=== PATIENT | female | born 1945 | race African-American/Black ===

== ENCOUNTER 2017-04-15 14:15 | Emergency (ER) | payer MEDICARE, OTHER ==
[~2017-04-15] VITALS: Ht 162.6 cm; Wt 88.5 kg
[2017-04-15 14:35] VITALS: BP 158/72
--- NOTE | 2017-04-15 14:38 | Emergency Room Report ---
History of Present Illness General Chief Complaint: Back Pain-No Injury Source: Patient Present Illness HPI [id number] [employer] patient walk-in with 2 days of right lower back pain 12/09. Non radiating Sharp, worse with movement pain when lifting right leg to walk, lying on right buttock No trauma/falls No history of sciatica No prior hip, back surgery No fever/chills No urinary/fecal incontinence No history of cancer Took tylenol once this morning with mild improvement Allergies: Coded Allergies: No Known Allergies (Unverified , 04/15/17) Patient History Past Medical History: HTN Past Surgical History: none Pertinent Family History: none Social History: Denies: smoking, alcohol use, drug use Last Menstrual Period: na Now: No Immunizations: UTD Reviewed Nursing Documentation: PMH: Agreed, PSxH: Agreed Nursing Documentation-PMH Past Medical History: No History, Except For Hx Hypertension: Yes Review of Systems All Other Systems: negative except mentioned in HPI Physical Exam Vital Signs Date Time Temp Pulse Resp B/P (MAP) Pulse Ox O2 Delivery O2 Flow Rate FiO2 04/15/17 14:18 97.3 58 18 153/78 98 Room Air Sp02 EP Interpretation: reviewed, normal General Appearance: normal inspection, well appearing, no apparent distress, alert, GCS 15, non-toxic, other - Well appearing elderly lady sitting in stretcher Head: normocephalic, atraumatic Eyes: bilateral eye PERRL, bilateral eye EOMI ENT: normal ENT inspection, hearing grossly normal, normal voice Neck: normal inspection, full range of motion, supple, no bony tend Respiratory: normal inspection, lungs clear, normal breath sounds, no respiratory distress, no retraction, no wheezing Cardiovascular #1: regular rate, rhythm, no edema Gastrointestinal: normal inspection, normal bowel sounds, non tender, soft, no guarding, no hernia Genitourinary: no CVA tenderness Musculoskeletal: normal inspection, normal range of motion, non-tender, no calf tenderness, pelvis stable, Andrea's Sign negative, other - ++TTP to right paravertebral area. Negative straight leg raise test Neurologic: normal inspection, alert, oriented x3, responsive, normal gait, speech normal, other - I walked patient bedside. No unsteady gait. Pain when elevating/placing foot to walk. Psychiatric: normal inspection, judgement/insight normal, mood/affect normal Skin: normal inspection, normal color, no rash Medical Decision Making Diagnostic Impression: Primary Impression: Back pain Qualified Codes: M54.5 - Low back pain Additional Impression: Muscle strain ER Course VSS. Afebrile +right paravertebral ttp. No sciatica Atraumatic so no reason for imaging No history of cancer, incontinence, IVDU, fever/chills so low suspicion for cord compression PO analgesia provided DC home PMD followup Last Vital Signs Date Time Temp Pulse Resp B/P (MAP) Pulse Ox O2 Delivery O2 Flow Rate FiO2 04/15/17 14:18 97.3 58 18 153/78 98 Room Air Status: improved Disposition: HOME, SELF-CARE Scripts Acetaminophen (Tylenol) 325 Mg Tablet 650 MG ORAL Q8HR Y for Prn Pain/Headache/Temp > 101 for 7 Days, #30 TAB 0 Refills Prov: VENUS PARRISH M.D. 04/15/17 Lidocaine (Lidoderm) 1 Each Adh..patch 1 PATCH TOPIC DAILY for back pain for 7 Days, #14 PATCH 0 Refills Patch(es) may remain in place for up to 12 hours in any 24-hour period. Prov: VENUS PARRISH M.D. 04/15/17 Methocarbamol* (ROBAXIN-750*) 750 Mg Tablet 750 MG PO TID for back pain for 7 Days, #30 TAB 0 Refills Prov: VENUS PARRISH M.D. 04/15/17 VENUS PARRISH M.D. Apr 15, 2017 14:38
[2017-04-15] MEDS ORDERED: LIDODERM700 M1 TOPIC (14:45)
[2017-04-15] MEDS ORDERED: ROBAXIN-750750 MG PO (14:45)
[2017-04-15] MEDS ORDERED: oxyCODONE HCL/Acetaminophen 5/325mg ORAL ONE (14:45)
[2017-04-15] MEDS ORDERED: Methocarbamol 750mg tab ORAL ONE (14:45)
[2017-04-15] MEDS ORDERED: TYLENOL325 MG ORAL (14:47)
[2017-04-15 15:42] VITALS: BP 144/78
== END 2017-04-15 15:42 | disposition home or self-care (01) ==
LOC: EMR 14:39
DX: S39.012A Strain of muscle, fascia and tendon of lower back, initial encounter (principal); X58.XXXA Exposure to other specified factors, initial encounter; Y92.89 Other specified places as the place of occurrence of the external cause
CPT/HCPCS: 99284

== ENCOUNTER 2017-04-19 08:32 | Outpatient (CLI) | payer MEDICARE, OTHER ==
[~2017-04-19 08:32] MED LIST: LIDODERM700 M1 TOPIC; ROBAXIN-750750 MG PO; TYLENOL325 MG ORAL
--- NOTE | 2017-04-19 14:43 | Diagnostic Imaging Report ---
Indication: Back pain Technique: MRI examination of the Lumbar spine was performed in a 1.5 Mallika magnet. Sequences obtained include sagittal and axial T1 and T2 fast spin echo, and sagittal STIR. No IV gadolinium was given Comparison: none Findings: There is no evidence of trauma related bone marrow edema or fracture. The visualized part of the distal spinal cord appears normal. The conus medullaris is seen at L1. There is no compression of the cord, conus or cauda equina. There is no evidence of significant malalignment. No epidural or other abnormal fluid collections or mass identified. No paravertebral edema identified. Degenerative changes are moderate to severe within the lumbar spine involving the discs and facet joints and will be described on a level by level basis. T12-L1 disc shows moderate desiccation and narrowing with anterior lesion situated endplate spurs and hypertrophy facets. L1-2 demonstrates severe disc narrowing and desiccation, moderate hypertrophic endplate spurs, minimal retrolisthesis and hypertrophy facets. No evidence of neural impingement, canal or foraminal stenosis. L2-3: Moderate desiccation and narrowing of the disc, endplate spurs, moderate hypertrophy facets demonstrated. Narrowing of the lateral recess slightly worse on the right compared the left demonstrated. Neural foraminal stenosis is mild bilaterally. L3-4: The height of the disc is relatively normal. There are endplate spurs. There is moderate facet arthropathy. Central or lateral recess stenosis is present. There is mild foraminal stenosis. L4-5: The height of the disc is relatively normal. There is moderate to severe facet hypertrophy present. There is evidence of mild central stenosis and narrowing of the lateral recess. There is moderate bilateral foraminal stenosis. L5-S1: The disc appears relatively normal. There is no central lateral recess or neural foraminal stenosis. There is a cyst in the central part of the right kidney measuring approximately 1.3 cm. Impression: Degenerative spondylosis with multilevel disc disease and facet arthropathy. Central, lateral recess and neural foraminal stenosis demonstrated at multiple levels. This is described in detail on a level by level basis in the body of the report.
== END 2017-04-19 10:32 | disposition home or self-care (01) ==
LOC: MRI 08:32
DX: M54.9 Dorsalgia, unspecified (principal); N28.1 Cyst of kidney, acquired; M51.36 Other intervertebral disc degeneration, lumbar region; M47.896 Other spondylosis, lumbar region
CPT/HCPCS: 72148

== ENCOUNTER 2018-03-06 10:30 | Outpatient (RCR) | payer MEDICARE, OTHER | END 2018-03-31 | disposition home or self-care (01) | LOC: PTY 10:30 | DX: R53.1 Weakness (principal); R26.9 Unspecified abnormalities of gait and mobility; Z86.73 Personal history of transient ischemic attack (TIA), and cerebral infarction without residual deficits | CPT/HCPCS: 97110; 97161; G8978; G8979 ==

== ENCOUNTER 2018-04-02 10:30 | Outpatient (RCR) | payer MEDICARE, OTHER | END 2018-05-01 | disposition home or self-care (01) | LOC: PTY 10:30 | DX: R26.9 Unspecified abnormalities of gait and mobility (principal); R53.1 Weakness; Z86.73 Personal history of transient ischemic attack (TIA), and cerebral infarction without residual deficits | CPT/HCPCS: 97110; G8978; G8979 ==

== ENCOUNTER 2018-05-14 09:48 | Outpatient (RCR) | payer MEDICARE, OTHER | END 2018-05-31 | disposition home or self-care (01) | LOC: PTY 09:48 | DX: R26.9 Unspecified abnormalities of gait and mobility (principal); R53.1 Weakness; Z86.73 Personal history of transient ischemic attack (TIA), and cerebral infarction without residual deficits | CPT/HCPCS: 97110; 97530; G8979; G8980 ==

== ENCOUNTER → 2019-06-05 | Outpatient (CLI) | payer MEDICARE, OTHER ==
--- NOTE | 2019-06-05 11:45 | Diagnostic Imaging Report ---
Indication: Right hip pain Technique: Noncontrast spiral acquisitions obtained through the right hip and pelvis. Multiplanar reconstructions were generated. Total dose length product 2131 mGycm. CTDIvol(s) 56 mGy. Radiation dose was minimized using automated exposure control Comparison: Findings: No acute fracture demonstrated. No dislocations. The hip joint spaces are preserved. No pelvic fracture demonstrated. No significant soft tissue contusion. There are degenerative changes of the lumbosacral junction. There is an intrauterine device in the uterus. There is ectasia of the bilateral common iliac arteries. The appendix is normal. There are colonic diverticula. Impression: No acute bony trauma Degenerative changes of the lumbosacral junction Intrauterine device in place Incidental findings as noted, colonic diverticulosis The CT scanner at [facility] is accredited by the [employer] and the scans are performed using protocols designed to limit radiation exposure to as low as reasonably achievable to attain images of sufficient resolution adequate for diagnostic evaluation.
== END | disposition home or self-care (01) ==
LOC: CAT 09:37
DX: M25.551 Pain in right hip (principal); Z97.5 Presence of (intrauterine) contraceptive device; K57.90 Diverticulosis of intestine, part unspecified, without perforation or abscess without bleeding

== ENCOUNTER 2019-09-07 08:48 | Emergency (ER) | payer MEDICARE, OTHER ==
[~2019-09-07] VITALS: Ht 162.6 cm; Wt 90.7 kg
[2019-09-07] MEDS ORDERED: AMLODIPINE BESY10 MG ORAL (09:00)
[2019-09-07] MEDS ORDERED: SIMVASTATIN20 MG ORAL (09:00)
[2019-09-07] MEDS ORDERED: LOSARTAN-HCTZ1 EACH ORAL (09:00)
[2019-09-07] MEDS ORDERED: PLAVIX75 MG ORAL (09:00)
--- NOTE | 2019-09-07 09:28 | Emergency Room Report ---
History of Present Illness General Chief Complaint: Upper Respiratory Illness Source: Medical Record Present Illness HPI Disclaimer: Please note that this report is being documented using [employer] technology. This can lead to erroneous entry secondary to incorrect interpretation by the dictating instrument. HPI: 74-year-old female history of hypertension, stroke, presented with cough for the past 4 days. She has had cough nonproductive for the past 4 days. Denies fevers denies nausea or vomiting. Denies shortness of breath. She denies any history of asthma or COPD. Her doctor prescribed her azithromycin which she started yesterday. Cough is causing chest pain that is left-sided worse with coughing about 8 out of 10 and nonradiating. PMH: Hypertension, stroke PSH: Reviewed Social Hx: Denies smoking or drinking or illicit drug use Allergies: Coded Allergies: No Known Allergies (Unverified , 04/15/17) Patient History Past Medical History: see triage record Reviewed Nursing Documentation: PMH: Agreed; PSxH: Agreed Nursing Documentation-PMH Past Medical History: No History, Except For Hx Hypertension: Yes Hx Cerebrovascular Accident: Yes Review of Systems All Other Systems: negative except mentioned in HPI Physical Exam Vital Signs Date Time Temp Pulse Resp B/P (MAP) Pulse Ox O2 Delivery O2 Flow Rate FiO2 09/07/19 08:53 98.1 68 18 123/71 (88) 94 Room Air Sp02 EP Interpretation: reviewed, normal General Appearance: well appearing, no apparent distress Head: normocephalic, atraumatic Eyes: bilateral eye PERRL, bilateral eye EOMI ENT: hearing grossly normal, moist mucus membranes Neck: full range of motion, supple Respiratory: no rhonchi, no respiratory distress, no retraction, other - Scant expiratory wheeze noted bilaterally Cardiovascular #1: normal peripheral pulses, regular rate, rhythm, no murmur Gastrointestinal: non tender, soft, non-distended, no guarding Neurologic: alert, oriented x3, no focal defects Skin: normal color, warm/dry Medical Decision Making ER Course Differential diagnosis included but not limited to bronchitis, pneumonia, URI to name a few. On exam she was no respiratory distress. Vital signs stable. After breathing treatment patient feeling improved, will discharge on albuterol as needed for cough or shortness of breath and advised patient to continue oral antibiotic that was already prescribed by her primary doctor. She was in no distress. She was nontoxic-appearing. Will discharge with close outpatient follow-up and return precautions. EXAM: XR Chest, 1 View CLINICAL HISTORY: COUGH TECHNIQUE: Frontal view of the chest. COMPARISON: Chest x-ray 11/21/13 FINDINGS: Lungs: Hypoventilatory lungs. Bibasilar lung atelectasis. Pleural space: Unremarkable. No pneumothorax. Heart: Cardiomegaly. Mediastinum: Unremarkable. Bones/joints: Unremarkable. Vasculature: Aorta is not calcification. IMPRESSION: Hypoventilatory lungs. Bibasilar lung atelectasis. EKG Diagnostic Results Rate: normal Rhythm: NSR Last Vital Signs Date Time Temp Pulse Resp B/P (MAP) Pulse Ox O2 Delivery O2 Flow Rate FiO2 09/07/19 08:53 98.1 68 18 123/71 (88) 94 Room Air Status: improved Disposition: HOME, SELF-CARE Condition: Stable Scripts Albuterol Sulfate* (ALBUTEROL SULFATE MDI*) 8.5 Gm Hfa.aer.ad 2 PUFF INH Q4H PRN for cough/wheezing, #1 EA 0 Refills Prov: Dylan Kebede M.D. 09/07/19 Additional Instructions: Patient is instructed to follow-up with her primary care doctor, primary care clinic or [facility] in 1 to 2 days. Patient instructed to return for any worsening symptoms or concerns. Please note that the documentation in this note was used with [employer] dictation technology. Pleae be advised that this may lead to erroneous text due to misinterpretation by the dictation software Dylan Kebede M.D. Sep 07, 2019 09:27
[2019-09-07] MEDS ORDERED: Albuterol/Ipratropium 3ml neb HHN ONE (09:30)
[2019-09-07 09:40] VITALS: BP 126/85
--- NOTE | 2019-09-07 10:39 | Diagnostic Imaging Report ---
EXAM: XR Chest, 1 View CLINICAL HISTORY: COUGH TECHNIQUE: Frontal view of the chest. COMPARISON: Chest x-ray 11/21/13 FINDINGS: Lungs: Hypoventilatory lungs. Bibasilar lung atelectasis. Pleural space: Unremarkable. No pneumothorax. Heart: Cardiomegaly. Mediastinum: Unremarkable. Bones/joints: Unremarkable. Vasculature: Aorta is not calcification. IMPRESSION: Hypoventilatory lungs. Bibasilar lung atelectasis.
[2019-09-07] MEDS ORDERED: ALBUTEROL SULF8.5 GM INH (10:49)
[2019-09-07 11:02] VITALS: BP 130/76
== END 2019-09-07 11:04 | disposition home or self-care (01) ==
LOC: EMR 09:35
DX: R05 Cough (principal); I10 Essential (primary) hypertension; Z86.73 Personal history of transient ischemic attack (TIA), and cerebral infarction without residual deficits; I51.7 Cardiomegaly
CPT/HCPCS: 71045; 99284; J7620

== ENCOUNTER 2020-04-05 22:05 | Inpatient (IN) | payer MEDICARE, OTHER ==
[~2020-04-05] VITALS: Ht 162.6 cm; Wt 98.5 kg
[~2020-04-05 22:05] MED LIST changes: +ALBUTEROL SULF8.5 GM INH; +AMLODIPINE BESY10 MG ORAL; +LOSARTAN-HCTZ1 EACH ORAL; +PLAVIX75 MG ORAL; +SIMVASTATIN20 MG ORAL
--- NOTE | 2020-04-05 22:25 | NUR ---
ED Nurse Note: Recieved pt BIBA from home, here with c/o syncopal episode, pt is completely awake, alert and oriented x 4, un-witnessed event, pt states she was sitting at computer and awakened on floor with lac to right side eyebrow and head hurting, un-sure of time, pt lives alone, denies chest pain, no sob or labored breathing and denies any s/s before event, pt immediately gowned and placed on cardiac monitoring, IV line placed and labs drawn also, will resume care as ordered and continue to closely monitor.
--- NOTE | 2020-04-05 22:27 | Emergency Room Report ---
History of Present Illness General Chief Complaint: Syncope Source: Patient, Medical Record Present Illness HPI This is a 74-year-old female with a history of CVA in the past without any residual symptoms. Also history of high blood pressure. She presents with chief complaint of syncope. She said she was watching TV and looking at her computer. She said she felt a weird sensation in her head and neck since she knew she was on the ground. She sustained a laceration to the right eyebrow area. No palpitation. No prodrome. Never had this problem before. No focal deficit. No slurred speech. Complaint of pain in the area of her head. She is taking Plavix. 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 COVID-19 Screening: Negative COVID-19 COVID-19 Testing Source: 08/2019 Patient History Past Medical History: see triage record, old chart reviewed, HTN, CVA/TIA Past Surgical History: none Pertinent Family History: none Social History: Denies: smoking Now: No Immunizations: other Reviewed Nursing Documentation: PMH: Agreed; PSxH: Agreed Nursing Documentation-PMH Hx Hypertension: Yes Hx Cerebrovascular Accident: Yes Review of Systems Eye: Denies: eye pain, blurred vision ENT: Denies: ear pain, nose congestion, throat swelling Respiratory: Denies: cough, shortness of breath Cardiovascular: Denies: chest pain, palpitations Gastrointestinal: Denies: abdominal pain, diarrhea, nausea, vomiting Musculoskeletal: Denies: back pain, joint pain Skin: Denies: rash Neurological: Denies: headache, numbness Endocrine: Denies: increased thirst, increased urine Hematologic/Lymphatic: Denies: easy bruising All Other Systems: negative except mentioned in HPI Physical Exam Vital Signs Date Time Temp Pulse Resp B/P (MAP) Pulse Ox O2 Delivery O2 Flow Rate FiO2 04/05/20 22:13 98.1 66 18 139/74 (95) 99 Vitals normal Sp02 EP Interpretation: reviewed, normal General Appearance: well appearing, no apparent distress, alert Head: normocephalic, other - 2 cm laceration just above the right eyebrow. No foreign body. Eyes: bilateral eye PERRL, bilateral eye EOMI ENT: hearing grossly normal, normal pharynx Neck: full range of motion, supple, no meningismus Respiratory: chest non-tender, lungs clear, normal breath sounds Cardiovascular #1: regular rate, rhythm, no murmur Gastrointestinal: normal bowel sounds, non tender, no mass, no organomegaly, no bruit, non-distended Musculoskeletal: back normal, normal range of motion, gait/station normal Psychiatric: mood/affect normal Procedures Laceration/Wound Repair Laceration/Wound Repair : Consent: Verbal Wound Location: face Wound's Depth, Shape: into muscle, linear Wound Length (cm): 2 Wound Explored: clean Irrigated w/ Saline (ccs): 500 Anesthesia: 1% Lidocaine Volume Anesthetic (ccs): 2 Wound Repaired With: sutures Suture Size/Type: 5:0, nylon Number of Sutures: 3 Sterile Dressing Applied?: Yes Patient Tolerated: Well Complications: None Medical Decision Making Diagnostic Impression: Primary Impression: Syncope Qualified Codes: R55 - Syncope and collapse Additional Impressions: Head injury, acute Qualified Codes: S09.90XA - Unspecified injury of head, initial encounter Facial laceration Qualified Codes: S01.81XA - Laceration without foreign body of other part of head, initial encounter ER Course Patient presents with syncope and head injury. Unknown etiology. No arrhythmia here. Monitoring and further work-up. Because of her age, medical problem and risk factors, will admit for further monitoring. I cussed the case with Dr. Larkin for admission. EKG Diagnostic Results Troponin ordered: Yes When was troponin ordered?: Apr 05, 2020 Rate: normal Rhythm: NSR ST Segments: other - NSST changes Rhythm Strip Diag. Results EP Interpretation: yes Rate: 60 Rhythm: NSR, no PVC's, no ectopy Chest X-Ray Diagnostic Results Chest X-Ray Diagnostic Results : Chest X-Ray Ordered: Yes # of Views/Limited/Complete: 1 View Indication: Other EP Interpretation: Yes Interpretation: no consolidation, no effusion, no pneumothorax, no acute cardiopulmonary disease Impression: No acute disease Electronically Signed by: Oral Chaves MD CT/MRI/US Diagnostic Results CT/MRI/US Diagnostic Results : Imaging Test Ordered: ct head Impression Read by radiologist. No acute changes. Old infarct. Last Vital Signs Date Time Temp Pulse Resp B/P (MAP) Pulse Ox O2 Delivery O2 Flow Rate FiO2 10/5/20 22:13 98.1 66 18 139/74 (95) 99 Status: improved Disposition: ADMITTED INPATIENT Condition: Serious Referrals: Aguilar Larkin MD (PCP) Oral Chaves MD Apr 05, 2020 22:27
[2020-04-05 22:45] VITALS: BP 139/79
--- NOTE | 2020-04-05 22:58 | Diagnostic Imaging Report ---
EXAM: CT Head Without Intravenous Contrast CLINICAL HISTORY: INJ TECHNIQUE: Axial computed tomography images of the head/brain without intravenous contrast. CTDI is 53.4 mGy and DLP is 1018.8 mGy-cm. One or more of the following dose reduction techniques were used: automated exposure control, adjustment of the mA and/or kV according to patient size, use of iterative reconstruction technique. COMPARISON: No relevant prior studies available. FINDINGS: Brain: Areas of encephalomalacia involving the bilateral frontal lobes, parietal, occipital lobes, likely sequela of prior infarctions. Periventricular and white matter hypodensities. No hemorrhage. Ventricles: Unremarkable. No ventriculomegaly. Bones/joints: Unremarkable. No acute fracture. Soft tissues: Unremarkable. Sinuses: Unremarkable as visualized. No acute sinusitis. Mastoid air cells: Unremarkable as visualized. No mastoid effusion. IMPRESSION: 1. No acute intracranial abnormality. 2. Regions of bilateral encephalomalacia likely sequela of prior infarct. 3. Chronic microvascular ischemic and age-related parenchymal changes.
[2020-04-05 23:09] LABS: BASOPHILS % (AUTO) 1.6 % (0.0-2.0); EOSINOPHILS % (AUTO) 1.2 % (0.0-3.0); HEMATOCRIT 43.6 % (37.0-47.0); HEMOGLOBIN 14.3 G/DL (12.0-16.0); LYMPHOCYTES % (AUTO) 33.7 % (20.0-45.0); MEAN CORPUSCULAR VOLUME 101 FL (80-99); MONOCYTES % (AUTO) 7.8 % (1.0-10.0); NEUTROPHILS % (AUTO) 55.8 % (45.0-75.0); PLATELET COUNT 231 K/UL (150-450); RED BLOOD COUNT 4.33 M/UL (4.20-5.40); RED CELL DISTRIBUTION WIDTH 13.7 % (11.6-14.8); WHITE BLOOD COUNT 5.9 K/UL (4.8-10.8)
[2020-04-05 23:19] LABS: INR 0.9 (0.9-1.1)
[2020-04-05 23:23] LABS: ALANINE AMINOTRANSFERASE 19 U/L (12-78); ALBUMIN 3.7 G/DL (3.4-5.0); ALBUMIN/GLOBULIN RATIO 0.9 (1.0-2.7); ALKALINE PHOSPHATASE 124 U/L (46-116); ASPARTATE AMINO TRANSFERASE 22 U/L (15-37); BILIRUBIN,TOTAL 0.5 MG/DL (0.2-1.0); BLOOD UREA NITROGEN 21 mg/dL (7-18); CALCIUM 9.3 MG/DL (8.5-10.1); CARBON DIOXIDE 24 MMOL/L (21-32); CREATININE 1.4 MG/DL (0.55-1.30)
[2020-04-05 23:39] LABS: CHLORIDE 105 MMOL/L (98-107); POTASSIUM 3.8 MMOL/L (3.5-5.1); SODIUM 140 MMOL/L (136-145)
[2020-04-06] VITALS: BP 131/72
--- NOTE | 2020-04-06 | NUR ---
ED Nurse Note: Pt resting quietly, no acute chagnes or increased distress, pt to be admitted to hospital, waiting for room placement, pt remains on cardiac monitoring, v/s stable, pt denies dizziness or increased headache, ct-scan negative and orthostatics normal, will continue to closely monitor while waiting for room for admission.
--- NOTE | 2020-04-06 00:35 | NUR ---
ED Nurse Note: Pt has room for admission, report called to MAURICIO Padgett, MD completed lac to right eyebrow, 3 sutures applied, dry dressing covering, no bleeding noted, pt tolerated well, belongings list completed, pt being taken to floor unit via gurney with RNx2 using ACLS protocols with monitoring, nad noted during pt transport to floor.
--- NOTE | 2020-04-06 01:00 | NUR ---
NURSE NOTES: Pt received from MAURICIO Oneill. Pt is resting comfortably in bed and denies pain. Pt is A/Ox4 and ambulatory with slow steady gait. Pt initial VS T98.1 P72 R17 BP128/71 O2 98%. Pt is breathing unlabored on RA and lung sounds clear bilaterally. Pt is on cardiac monitoring SR and asymptomatic. Pt has bilateral arm strength 5/5 and bilateral leg strength 4/5; pt uses side rails to assist turning in bed. Pt has PMSCx4. Pt has active Bowel Sounds x4 and asymptomatic. Pt voids with no issues and states last BM 10/. Pt skin is intact. Bed rails are padded d/t pt statement "I feel like I had a seizure" and states no history of seizures. Skin is intact. Bed is locked and in lowest position with call light within reach. Will continue to monitor.
[2020-04-06] MEDS ORDERED: [UNRECOGNIZED DRUG - OTHER] IV SCH ×2 (02:00)
--- NOTE | 2020-04-06 03:30 | Consultation ---
DATE OF CONSULTATION: 04/05/2020 CARDIOLOGY CONSULTATION CONSULTING PHYSICIAN: Aguilar Larkin MD. REQUESTING PHYSICIAN: Ye Lester MD. REASON: Syncope. HISTORY OF PRESENT ILLNESS: This is a 74-year-old female, who is known to me from prior care. She has a longstanding history of cerebrovascular disease and hypertension. She suffered a stroke almost 10 years ago with residual visual, cognitive and expressive deficits. She does live independently, however. Her blood pressure has been labile at times, but over the past year, she has been quite stable. This evening, she was watching TV, looking intermittently at her computer, suddenly felt a weird sensation in her head and neck and the next thing she knew she found herself waking up on the ground. She fell hard and hit her right forehead with a laceration sustained to the right eyebrow. The patient did not note any illness today or change in her condition. She denies any fever, chills, nausea, vomiting, other than some vague abdominal discomfort this afternoon. She did not have any cough, chest pain, or shortness of breath. She has not had any recent ill contacts or known COVID-19 exposures. The patient was seen in the emergency room. A CAT scan of the brain revealed diffuse white matter disease and encephalomalacia presumably due to prior strokes. She was hemodynamically stable. PAST MEDICAL HISTORY: Includes hypertension, cerebrovascular accident, visual impairment, vitamin D deficiency, B12 deficiency due to pernicious anemia, hyperlipidemia. ALLERGIES: None. MEDICATIONS: Include amlodipine, losartan, hydrochlorothiazide, simvastatin and clopidogrel as well as vitamin D and monthly B12 injections. REVIEW OF SYSTEMS: Outpatient echocardiogram in the last six months revealed normal ejection fraction, concentric hypertrophy, mild degenerative valve disease. Prior stress echocardiogram has been negative for inducible ischemia or wall motion abnormalities. There is no history of cardiac arrhythmias. There is no history of diabetes or thyroid impairment. There is no history of abnormal blood clotting. PHYSICAL EXAMINATION: VITAL SIGNS: Afebrile, blood pressure 139/74, pulse 66, respirations 18. HEENT: Conjunctivae are pink. Sclerae are anicteric. Oropharynx clear. NECK: Supple. Jugular venous pressure normal. CARDIAC: Regular. Normal S1, S2. Point of maximal impulse sustained. There is a fourth heart sound. BREASTS: Without discrete masses. ABDOMEN: Soft, nontender. No bruits. EXTREMITIES: No edema. Good distal pulses. NEUROLOGIC: Coherent, but slow thought process and speech. Strength symmetric. This is her baseline from my knowledge of this patient in the past. DIAGNOSTIC AND LABORATORY DATA: EKG, sinus rhythm. Minimal voltage for left ventricular hypertrophy and nonspecific ST change. Chest x-ray, no acute process. White count 5.9, hemoglobin 14.3. BUN 21, creatinine 1.4. Troponin negative. Potassium 3.8, albumin 3.7. Liver function normal. IMPRESSION: 1. Syncopal episode, etiologies may be acute cerebrovascular insult and/or seizure less likely a primary cardiac arrhythmia needs to be considered. 2. Mild prerenal azotemia, hypovolemia with acute on chronic kidney injury. 3. History of prior CVA. 4. 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 5. Hypertensive heart disease with labile blood pressure. 6. History of hyperlipidemia. 7. History of vitamin D and B12 deficiencies. PLAN: 1. Cardiac monitoring. 2. Antiplatelet therapy. 3. Cautious hydration. 4. Hold this diuretic. 5. Titrate antihypertensives. 6. Metabolic profile. 7. DVT prophylaxis. 8. Carotid duplex evaluation. 9. EEG. 10. Monitor orthostatics. Aguilar Larkin M.D. DR: ELDA JOB#: [id number] CC:
[2020-04-06 04:00] VITALS: BP 113/62
[2020-04-06 06:48] LABS: BASOPHILS % (AUTO) 1.1 % (0.0-2.0); EOSINOPHILS % (AUTO) 1.1 % (0.0-3.0); HEMATOCRIT 36.3 % (37.0-47.0); HEMOGLOBIN 12.2 G/DL (12.0-16.0); LYMPHOCYTES % (AUTO) 34.8 % (20.0-45.0); MEAN CORPUSCULAR VOLUME 96 FL (80-99); MONOCYTES % (AUTO) 9.8 % (1.0-10.0); NEUTROPHILS % (AUTO) 53.2 % (45.0-75.0); PLATELET COUNT 205 K/UL (150-450); RED CELL DISTRIBUTION WIDTH 13.1 % (11.6-14.8); WHITE BLOOD COUNT 6.2 K/UL (4.8-10.8)
[2020-04-06 07:24] LABS: BILIRUBIN,TOTAL 0.6 MG/DL (0.2-1.0); CALCIUM 8.8 MG/DL (8.5-10.1); CREATININE 1.2 MG/DL (0.55-1.30); POTASSIUM 3.3 MMOL/L (3.5-5.1)
--- NOTE | 2020-04-06 07:26 | NUR ---
NURSE HAND-OFF REPORT: Important Events on Shift:Pt admitted to tele. Patient Status: Stable Diet: No salt added diet Pending Orders: EEG Pending Results/Labs:AM Labs Latest Vital Signs: Temperature 98.8 , Pulse 63 , B/P 113 /62 , Respiratory Rate 16 , O2 SAT 96 , Room Air, O2 Flow Rate . Vital Sign Comment: VSS EKG Rhythm: Sinus Rhythm Rhythm change?: N MD Notified?: - MD Response: Latest Romo Fall Score: 45 Fall Risk: High Risk Safety Measures: Call light Within Reach, Bed Alarm Zone 1, Side Rails Side Rails x2, Bed position Low and Locked. Fall Precautions: Yellow Socks Yellow Gown Door Sign Patient Fall Education Report given to MAURICIO Cabrales.
--- NOTE | 2020-04-06 07:46 | NUR ---
NURSE NOTES: RECEIVED PATIENT FROM MARYJANE MARTÍNEZ IN BED, DENIES ANY PAIN AT THIS TIME. NO S/S OF RESPIRATORY DISTRESS NOTED. PATIENT IS ON BEDREST, ABLE TO AMBULATE WITH STEADY GAIT. . PATIENT IS AAO X4 ABLE TO MAKE NEEDS KNOWN. SKIN IS INTACT. IV ON RAC 20G RUNNING NS W/KCL 20MEQ @100CC/HR. BED IS ON LOWEST POSITION, BEDSIDE RAILS UP X2, BRAKES ENGAGED FOR SAFETY. CALL LIGHT IS WITHIN REACH. WILL CONTINUE WITH THE PLAN OF CARE.
[2020-04-06 08:00] VITALS: BP 116/61
[2020-04-06] MEDS: Heparin 5000 units/ml inj SUBQ SCH ×2 (08:59→21:06)
[2020-04-06] MEDS: Vitamin D 1000 IU Tab ORAL SCH (09:00)
[2020-04-06] MEDS: Losartan 50mg tab ORAL SCH (09:00)
[2020-04-06] MEDS: NS w/KCl 20mEq 1000ml 1,000 ML IV SCH ×2 (09:01→18:17)
--- NOTE | 2020-04-06 09:42 | NUR ---
CASE MANAGEMENT:INITIAL REVIEW 74 YR OLD FEMALE FROM HOME CC;SYNCOPE SI;SYNCOPE. HEAD INJURY. FACIAL LACERATION. 98.4 71 18 139/74 99% ON RA BUN 21 CR 1.4 ALP 124 TROP - NEGATIVE 0.[address] - 1. No acute intracranial abnormality. 2. Regions of bilateral encephalomalacia likely sequela of prior infarct. 3. Chronic microvascular ischemic and age-related parenchymal changes. IS;IVF NS BOLUS KCL IV EKG TRACING ADMITTED TO TELEMETRY 04/06/20 @ 0016 TELE STATUS DCP;FROM HOME
--- NOTE | 2020-04-06 10:00 | History and Physical Report ---
DATE OF ADMISSION: 04/05/2020 CHIEF COMPLAINT: Syncope and head trauma. HISTORY OF PRESENT ILLNESS: The patient is a 74-year-old female with a history of hypertension and prior stroke. She was seated on her couch watching TV and woke up on the floor bleeding from her right forehead. She called her neighbor, who brought her to the emergency room. According to the patient, she had no palpitations, no dizziness. She denies any diarrhea, nausea, or vomiting. She states she has been drinking and eating normally. She believes she had a similar episode approximately a month ago. On evaluation in the emergency room, CT scan of the brain showed nothing acute. Hemoglobin was stable. She had a slightly elevated BUN and creatinine. In light of her syncopal episode, she is now admitted for further evaluation and care. PAST MEDICAL HISTORY: As above. PAST SURGICAL HISTORY: None. CURRENT MEDICATIONS: Reconciled and reviewed. ALLERGIES: None. FAMILY HISTORY: Significant for hypertension and vascular disease. SOCIAL HISTORY: Negative for tobacco, ethanol, or drugs. REVIEW OF SYSTEMS: GENERAL: No fevers or chills. HEENT: No headaches or visual changes. CARDIOPULMONARY: No chest pain or shortness of breath. No palpitations. GASTROINTESTINAL: No nausea or vomiting. GENITOURINARY: No urgency or frequency. MUSCULOSKELETAL: No joint pain or swelling. NEUROLOGIC: No history of seizures. PHYSICAL EXAMINATION: VITAL SIGNS: Temperature 98, pulse 66, respirations 20, and blood pressure __/61. GENERAL: The patient is a well-developed female, in no apparent distress. HEENT: She has small laceration to the right eyebrow. The head is otherwise without bruises. The oropharynx is clear. Mucous membranes are moist. NECK: Supple. HEART: Regular rate and rhythm. LUNGS: Clear. ABDOMEN: Soft, nontender, nondistended. EXTREMITIES: Without clubbing, cyanosis, or edema. LABORATORY DATA: White count 5, hemoglobin 14, hematocrit 43, platelets of 231,000. Sodium 140, potassium 3.8, chloride 105, bicarb 24, BUN 21, and creatinine 1.4. TSH was normal. Troponin was negative. ASSESSMENT: This is a 74-year-old female with a history of hypertension and prior stroke, admitted with complaints of a syncopal episode, etiology of which is unclear. PLAN: 1. IV hydration. 2. Replace electrolytes. 3. Cardiology followup. 4. Monitor on telemetry for arrhythmia. 5. Check a carotid duplex. 6. DVT and stress ulcer prophylaxes. Ye Lester M.D. DR: TIKA JOB#: [id number] CC:
--- NOTE | 2020-04-06 11:21 | Diagnostic Imaging Report ---
Procedure: XRAY Chest 1v Reason for study: Chest pain. Comparison films: 09/07/2019. FINDINGS: A single one view chest is obtained. Vascularity is normal. The lung jimenez are clear bilaterally. There is cardiomegaly and tortuous aorta unchanged. CP angles are sharp. The bony thorax appear unremarkable. IMPRESSION: NO ACUTE CARDIOPULMONARY DISEASE.
[2020-04-06 12:00] VITALS: BP 110/71
[2020-04-06 16:00] VITALS: BP 116/70
--- NOTE | 2020-04-06 16:58 | Cardiology Report ---
APPROVED REPORT EKG Measurement Heart [id number] <Conclusion> Sinus bradycardia Nonspecific ST and T wave abnormality Abnormal ECG
--- NOTE | 2020-04-06 19:00 | Diagnostic Imaging Report ---
Indication: Syncope Technique: Grayscale and duplex images of the bilateral extracranial carotid and vertebral arteries Comparison: none Findings: Bilaterally, grayscale and duplex images demonstrate atherosclerotic plaquing, resulting in less than 50% diameter narrowing. Normal Doppler flow velocities and waveforms. Patent bilateral vertebral arteries, antegrade flow Impression: Less than 50% diameter stenosis bilaterally. All stenosis was measured based on the NASCET criteria. Velocity criteria are extrapolated from diameter data as defined by the Society of radiologists in ultrasound consensus conference. Radiology 2003:229; 340-346
--- NOTE | 2020-04-06 19:31 | NUR ---
NURSE HAND-OFF REPORT: Important Events on Shift:EEG Patient Status: Diet: Pending Orders: Pending Results/Labs:N Pending MD notification:N Latest Vital Signs: Temperature 97.1 , Pulse 67 , B/P 116 /70 , Respiratory Rate 20 , O2 SAT 97 , Room Air, O2 Flow Rate . Vital Sign Comment: EKG Rhythm: Sinus Bradycardia Rhythm change?: N MD Notified?: - MD Response: Latest Romo Fall Score: 45 Fall Risk: High Risk Safety Measures: Call light Within Reach, Bed Alarm Zone 2, Side Rails Side Rails x2, Bed position Low and Locked. Fall Precautions: Yellow Socks Yellow Gown Door Sign Patient Fall Education Report given to .
--- NOTE | 2020-04-06 19:40 | NUR ---
NURSE NOTES: Received patient form Samra MARTÍNEZ. Patient is in bed sleeping in semi-mercado as she is having EEG study at this time. No pain or acute distress noted. It was reported that patient os A/O x4 and ambulates with steady gait. . IV site is right hand 20G running NS W/KCL 20MEQ @100ml/HR as ordered. Bed is in lowest position and locked, bedside rales up X2, Call light is in reach. Fall precautions in place. Will reassess patient when EEG is compleat. Will continue plane of care.
[2020-04-06 20:00] VITALS: BP 121/70
--- NOTE | 2020-04-06 21:00 | NUR ---
NURSE NOTES: Patient is awake relaxing in bed. The EEG is complete. No acute distress noted at this time. IV site is right hand 20G running NS W/KCL 20MEQ @100ml/HR as ordered; patent and flushed. No erythema or bleeding noted. Bed is in lowest position and locked, bedside rales up X2, Call light and belongings with is in reach. Fall precautions in place. Patient educated to use call light for assistance and before attempting to get up. Will continue plane of care.
[2020-04-07] VITALS: BP 119/70
[2020-04-07] MEDS: NS w/KCl 20mEq 1000ml 1,000 ML IV SCH ×2 (02:28→15:29)
--- NOTE | 2020-04-07 03:06 | Cardiology Progress Note ---
Subjective DATE OF SERVICE: Apr 06, 2020 No new complaints. Denies dizziness, CP, N/V, or SOB. Monitor: sinus without any significant ectopy Carotid duplex: less than 50% stenoses myah. Head CT: encephalomalacia due to prior infarcts. Objective Last 24 Hour Vital Signs Date Time Temp Pulse Resp B/P (MAP) Pulse Ox O2 Delivery O2 Flow Rate FiO2 04/07/20 00:00 97.9 62 16 119/70 (86) 97 04/07/20 00:00 54 04/06/20 21:00 Room Air 04/06/20 20:00 56 04/06/20 20:00 96.6 72 17 121/70 (87) 97 04/06/20 20:00 72 61 61 04/06/20 16:00 97.1 67 20 116/70 (85) 97 04/06/20 16:00 57 04/06/20 13:46 63 64 66 04/06/20 12:00 98.6 59 20 110/71 (84) 97 04/06/20 12:00 59 04/06/20 09:00 63 64 66 04/06/20 09:00 116/61 04/06/20 09:00 66 116/61 04/06/20 09:00 Room Air 04/06/20 08:00 98.1 66 20 116/61 (79) 97 04/06/20 08:00 64 04/06/20 05:58 74 79 83 04/06/20 04:00 98.8 63 16 113/62 (79) 96 04/06/20 04:00 66 ROS: unchanged from my evaluation of 04/05/20. HEENT: normal ENT inspection RHYTHM: NSR LUNGS: lungs clear bilaterally CARDIAC: normal rate, regular rhythm, normal S1 and S2, gallop/S4 ABDOMEN: normal bowel sounds, non tender, soft, no organomegaly EXTREMITIES: no calf tenderness, No edema Laboratory Tests Test 04/06/20 05:29 White Blood Count 6.2 K/UL (4.8-10.8) Red Blood Count 3.80 M/UL (4.20-5.40) L Hemoglobin 12.2 G/DL (12.0-16.0) Hematocrit 36.3 % (37.0-47.0) L Mean Corpuscular Volume 96 FL (80-99) Mean Corpuscular Hemoglobin 32.1 PG (27.0-31.0) H Mean Corpuscular Hemoglobin Concent 33.6 G/DL (32.0-36.0) Red Cell Distribution Width 13.1 % (11.6-14.8) Platelet Count 205 K/UL (150-450) Mean Platelet Volume 8.6 FL (6.5-10.1) Neutrophils (%) (Auto) 53.2 % (45.0-75.0) Lymphocytes (%) (Auto) 34.8 % (20.0-45.0) Monocytes (%) (Auto) 9.8 % (1.0-10.0) Eosinophils (%) (Auto) 1.1 % (0.0-3.0) Basophils (%) (Auto) 1.1 % (0.0-2.0) Sodium Level 141 MMOL/L (136-145) Potassium Level 3.3 MMOL/L (3.5-5.1) L Chloride Level 106 MMOL/L (98-107) Carbon Dioxide Level 26 MMOL/L (21-32) Anion Gap 9 mmol/L (5-15) Blood Urea Nitrogen 18 mg/dL (7-18) Creatinine 1.2 MG/DL (0.55-1.30) Estimat Glomerular Filtration Rate 53.4 mL/min (>60) Glucose Level 85 MG/DL (74-106) Calcium Level 8.8 MG/DL (8.5-10.1) Total Bilirubin 0.6 MG/DL (0.2-1.0) Aspartate Amino Transf (AST/SGOT) 17 U/L (15-37) Alanine Aminotransferase (ALT/SGPT) 21 U/L (12-78) Alkaline Phosphatase 105 U/L (46-116) Total Protein 5.9 G/DL (6.4-8.2) L Albumin 3.0 G/DL (3.4-5.0) L Globulin 2.9 g/dL Albumin/Globulin Ratio 1.0 (1.0-2.7) Vitamin B12 Level 461 PG/ML (193-986) Vitamin D 25-Hydroxy Pending 25-Hydroxy Vitamin D2 Pending 25-Hydroxy Vitamin D3 Pending Folate 9.7 NG/ML (8.6-58.9) Thyroid Stimulating Hormone (TSH) 1.301 uiU/mL (0.358-3.740) Assessment/Plan Assessment/Plan Syncopal episode - etiology unclear Hypertension/HHD Hx CVA with visual disturbance and dysarthria Hx B12 and vitamin D deficiencies Hyperlipidemia Monitor orthostatics DC IVF Titrate antiHTN meds Continue antiplt and antilipid rx Await EEG Aguilar Larkin MD Apr 07, 2020 03:06
[2020-04-07 04:00] VITALS: BP 124/60
--- NOTE | 2020-04-07 07:18 | NUR ---
NURSE HAND-OFF REPORT: Important Events on Shift: Patient had EEG completed at bed side at 04/06/2020. Patient Status: Stable Diet: Regular Pending Orders: Pending Results/Labs: Pending MD notification: Latest Vital Signs: Temperature 97.7 , Pulse 58 , B/P 124 /60 , Respiratory Rate 17 , O2 SAT 97 , Room Air, O2 Flow Rate . Vital Sign Comment: EKG Rhythm: Sinus Bradycardia Rhythm change?: N MD Notified?: - MD Response: Latest Romo Fall Score: 45 Fall Risk: High Risk Safety Measures: Call light Within Reach, Bed Alarm Zone 2, Side Rails Side Rails x2, Bed position Low and Locked. Fall Precautions: Yellow Socks Yellow Gown Door Sign Patient Fall Education Report given to Samra MARTÍNEZ.
--- NOTE | 2020-04-07 07:25 | NUR ---
NURSE NOTES: RECEIVED PATIENT FROM JIM MARTÍNEZ IN BED, DENIES ANY PAIN AT THIS TIME. NO S/S OF RESPIRATORY DISTRESS NOTED. PATIENT IS HAVING BREAKFAST AND DR. GRANT WAS IN THE ROOM TALKING WITH THE PATIENT. PATIENT IS AAO X4 ABLE TO MAKE NEEDS KNOWN. SKIN IS INTACT. IV ON RIGHT HAND 24G RUNNING NS W/KCL 20MEQ @100CC/HR. BED IS ON LOWEST POSITION, BEDSIDE RAILS UP X2, BRAKES ENGAGED FOR SAFETY. CALL LIGHT IS WITHIN REACH. WILL CONTINUE WITH THE PLAN OF CARE.
[2020-04-07 08:00] VITALS: BP 125/67
[2020-04-07] MEDS: Vitamin D 1000 IU Tab ORAL SCH (08:37)
[2020-04-07] MEDS: Losartan 50mg tab ORAL SCH (08:38)
[2020-04-07] MEDS: Heparin 5000 units/ml inj SUBQ SCH ×2 (08:40→22:01)
[2020-04-07 12:00] VITALS: BP 127/72
--- NOTE | 2020-04-07 15:47 | NUR ---
CASE MANAGEMENT: REVIEW SI: SYNCOPE T 97.8 HR 54 RR 18 BP 127/72 SAT 97% ROOM AIR RBC 3.80 HCT 36.3 K 3.3 IS: K-DUR 40MEQ PO X1 HEPARIN SUBQ Q12HR NS w/KCl 20MEQ IVF @ 100ML/HR BILATERAL CAROTIC VERT DUPLEX SCAN EEG PENDING TELEMETRY UNIT STATUS DCP: PATIENT IS FROM HOME
[2020-04-07 16:00] VITALS: BP 121/69
--- NOTE | 2020-04-07 17:56 | General Progress Note ---
Subjective ROS Limited/Unobtainable: No Constitutional: Reports: malaise, weakness HEENT: Reports: no symptoms Cardiovascular: Reports: no symptoms Respiratory: Reports: no symptoms Gastrointestinal/Abdominal: Reports: no symptoms Genitourinary: Reports: no symptoms Neurologic/Psychiatric: Reports: weakness Endocrine: Reports: no symptoms Hematologic/Lymphatic: Reports: no symptoms Allergies: Coded Allergies: No Known Allergies (Unverified , 04/15/17) All Systems: reviewed and negative except above Subjective no events. abnormal EEG noted. per staff unsteady gait. no fever or chills. no sob. no chest pain or palpitations. Objective Last 24 Hour Vital Signs Date Time Temp Pulse Resp B/P (MAP) Pulse Ox O2 Delivery O2 Flow Rate FiO2 04/07/20 16:00 98.1 62 20 121/69 (86) 98 04/07/20 16:00 54 04/07/20 12:00 97.8 54 18 127/72 (90) 97 04/07/20 12:00 54 04/07/20 09:00 Room Air 04/07/20 09:00 70 72 69 04/07/20 08:38 125/67 04/07/20 08:38 66 125/67 04/07/20 08:00 61 04/07/20 08:00 97.6 61 18 125/67 (86) 98 04/07/20 04:00 58 04/07/20 04:00 97.7 64 17 124/60 (81) 97 04/07/20 00:00 97.9 62 16 119/70 (86) 97 04/07/20 00:00 54 04/06/20 21:00 Room Air 04/06/20 20:00 56 04/06/20 20:00 96.6 72 17 121/70 (87) 97 04/06/20 20:00 72 61 61 Intake and Output 04/06/20 04/07/20 19:00 07:00 Intake Total 960 ml Balance 960 ml Intake Oral 960 ml # Voids 4 Height (Feet): 5 Height (Inches): 4.00 Weight (Pounds): 209 General Appearance: WD/WN, alert Neck: supple Cardiovascular: normal rate Respiratory/Chest: lungs clear, normal breath sounds Abdomen: normal bowel sounds, non tender, soft, no organomegaly, no mass Edema: no edema noted Arm (L), no edema noted Arm (R) 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, no motor/sensory deficits, abnormal gait, alert, oriented x 3, responsive, normal mood/affect Skin: normal pigmentation Lymphatic: normal anterior cervical (L), normal anterior cervical (R) Assessment/Plan Problem List: (1) Syncope ICD Codes: R55 - Syncope and collapse SNOMED: 930993204, [id number] Qualifiers: Qualified Codes: R55 - Syncope and collapse (2) Facial laceration ICD Codes: S01.81XA - Laceration without foreign body of other part of head, initial encounter SNOMED: 864357577, 9613586 Qualifiers: Qualified Codes: S01.81XA - Laceration without foreign body of other part of head, initial encounter (3) Head injury, acute ICD Codes: S09.90XA - Unspecified injury of head, initial encounter SNOMED: 38673749, 9612973 Qualifiers: Qualified Codes: S09.90XA - Unspecified injury of head, initial encounter (4) Bronchitis ICD Codes: J40 - Bronchitis, not specified as acute or chronic SNOMED: 90715464 Status: stable Assessment/Plan: cont ivf PT eval Neuro eval re: EEG findings. monitor bp dc planning pending PT eval and neuro consult D/w and pt POC Ye Lester MD Apr 07, 2020 17:55
--- NOTE | 2020-04-07 19:15 | NUR ---
NURSE NOTES: Report received from MAURICIO Herrera. Patient in bed awake alert and oriented x4. No SOB or distress. Bed at lowest position locked with side rails up. Bed alarm activated. Call light and bedside table within reach. athletic monitor intact. On fall precautions. Will continue with plan of care.
[2020-04-07 20:00] VITALS: BP 122/71
--- NOTE | 2020-04-07 20:05 | NUR ---
NURSE HAND-OFF REPORT: Important Events on Shift:POSSIBLE NEUROLOGY ON THE CASE PER DR. GRANT AND DR ENAMORADO Patient Status: Diet: Pending Orders: Pending Results/Labs: Pending MD notification: Latest Vital Signs: Temperature 98.1 , Pulse 54 , B/P 121 /69 , Respiratory Rate 20 , O2 SAT 98 , Room Air, O2 Flow Rate . Vital Sign Comment: STABLE EKG Rhythm: Sinus Bradycardia Rhythm change?: N MD Notified?: - MD Response: Latest Romo Fall Score: 45 Fall Risk: High Risk Safety Measures: Call light Within Reach, Bed Alarm Zone 2, Side Rails Side Rails x2, Bed position Low and Locked. Fall Precautions: Yellow Socks Yellow Gown Door Sign Patient Fall Education Report given to SASHA
--- NOTE | 2020-04-07 21:15 | Electroencephalogram ---
DATE OF PROCEDURE: 04/06/2020 EEG REPORT REQUESTING PHYSICIAN: Aguilar Larkin MD. READING PHYSICIAN: Kartik Guaman MD. HISTORY: This EEG was performed on a 74-year-old lady with a history of an episode of loss of consciousness. She does have a prior history of cerebrovascular disease with a stroke a few years ago. The purpose of this EEG was to evaluate the patient for the degree and type of cerebral dysfunction. TECHNICAL NOTE: This EEG was performed on a [facility] with electrodes placed on the scalp according to the international 10-20 system. [id number] and cxiax-ti-alv montages were used. The EEG was technically satisfactory and was performed in the awake and drowsy states. OBSERVATIONS: In the best awake state, the background activity consisted of 8.5-9 Hz posterior rhythmic alpha activity. Drowsiness was characterized by dissolution of the alpha rhythm and appearance of slower frequencies in the 5-6 Hz theta range. During drowsiness, left frontotemporal polymorphic delta activity was noted. In addition, a few interspersed T3 sharp and slow wave discharges were also seen occurring singly and infrequently. IMPRESSION: This is an abnormal EEG characterized by: 1. Left frontotemporal polymorphic delta activity seen during drowsiness. 2. The presence of T3 sharp and slow wave discharges occurring singly and infrequently. COMMENT: The study is consistent with: 1. Left frontotemporal focal dysfunction. 2. A left mid temporal epileptogenic focus with interictal discharges seen on this EEG. Kartik Guaman M.D., M.S.P.H. Clinical Neurophysiologist DR: JOSE JOB#: [id number] [email or web address]
--- NOTE | 2020-04-07 23:54 | Cardiology Progress Note ---
Subjective DATE OF SERVICE: Apr 07, 2020 No new complaints. Denies dizziness, CP, N/V, or SOB. Monitor: sinus without any significant ectopy Carotid duplex: less than 50% stenoses myah. Head CT: encephalomalacia due to prior infarcts. EEG: reveals epileptic focus Objective Last 24 Hour Vital Signs Date Time Temp Pulse Resp B/P (MAP) Pulse Ox O2 Delivery O2 Flow Rate FiO2 04/07/20 21:00 Room Air 04/07/20 20:00 68 04/07/20 20:00 98.4 65 16 122/71 (88) 100 04/07/20 16:00 98.1 62 20 121/69 (86) 98 04/07/20 16:00 54 04/07/20 12:00 97.8 54 18 127/72 (90) 97 04/07/20 12:00 54 04/07/20 09:00 Room Air 04/07/20 09:00 70 72 69 04/07/20 08:38 125/67 04/07/20 08:38 66 125/67 04/07/20 08:00 61 04/07/20 08:00 97.6 61 18 125/67 (86) 98 04/07/20 04:00 58 04/07/20 04:00 97.7 64 17 124/60 (81) 97 04/07/20 00:00 97.9 62 16 119/70 (86) 97 04/07/20 00:00 54 ROS: unchanged from my evaluation of 04/05/20. HEENT: normal ENT inspection RHYTHM: NSR LUNGS: lungs clear bilaterally CARDIAC: normal rate, regular rhythm, normal S1 and S2, gallop/S4 ABDOMEN: normal bowel sounds, non tender, soft, no organomegaly EXTREMITIES: no calf tenderness, No edema Assessment/Plan Assessment/Plan Syncopal episode Seizure focus by EEg Hypertension/HHD Hx CVA with visual disturbance and dysarthria Hx B12 and vitamin D deficiencies Hyperlipidemia Monitor orthostatics DC IVF Titrate antiHTN meds Continue antiplt and antilipid rx Add Keppra; await neuro Aguilar Jackson MD Apr 07, 2020 23:54
[2020-04-08] VITALS: BP 141/87
--- NOTE | 2020-04-08 03:40 | NUR ---
NURSE NOTES: Patient had severe bradycardia, 34 BPM at 330 am for 5 seconds. Patient was easy to arouse alert and oriented in no distress. Patient's heart rate went back up to 56. BP 124/71 R18 o2 sat 98%. No fever. Left message with Dr. Larkin. Will continue to monitor patient closely.
[2020-04-08 04:00] VITALS: BP 124/71
[2020-04-08 07:20] LABS: BASOPHILS % (AUTO) 1.2 % (0.0-2.0); EOSINOPHILS % (AUTO) 5.4 % (0.0-3.0); HEMOGLOBIN 12.7 G/DL (12.0-16.0); LYMPHOCYTES % (AUTO) 46.8 % (20.0-45.0); MEAN CORPUSCULAR VOLUME 95 FL (80-99); MONOCYTES % (AUTO) 12.5 % (1.0-10.0); NEUTROPHILS % (AUTO) 34.1 % (45.0-75.0); PLATELET COUNT 195 K/UL (150-450); RED BLOOD COUNT 3.89 M/UL (4.20-5.40); WHITE BLOOD COUNT 4.2 K/UL (4.8-10.8)
--- NOTE | 2020-04-08 07:28 | NUR ---
NURSE HAND-OFF REPORT: Important Events on Shift:[SB [address] thomas aware] Patient Status: [Alert oriented stable] Diet: [] Pending Orders: [] Pending Results/Labs:[] Pending MD notification:[] Latest Vital Signs: Temperature 97.7 , Pulse 50 , B/P 124 /71 , Respiratory Rate 20 , O2 SAT 98 , Room Air, O2 Flow Rate . Vital Sign Comment: [] EKG Rhythm: Sinus Bradycardia Rhythm change?: N MD Notified?: Y -Dr. Trae CANALES Response: Message left await call Latest Romo Fall Score: 45 Fall Risk: High Risk Safety Measures: Call light Within Reach, Bed Alarm Zone 2, Side Rails Side Rails x2, Bed position Low and Locked. Fall Precautions: Yellow Socks Yellow Gown Door Sign Patient Fall Education Report given to [MAURICIO Spence].
--- NOTE | 2020-04-08 07:44 | NUR ---
NURSE NOTES: Received report from MAURICIO Gonzalez. Pt awake, A/O x4, denies any pain, able to make needs known. Pt breathing even and unlabored in RA. IV site on R hand patent and asymptomatic, running IVF as ordered. Bed on lowest position, call light within reach. Will continue plan of care.
[2020-04-08 08:00] VITALS: BP 118/73
[2020-04-08 08:15] LABS: ALANINE AMINOTRANSFERASE 13 U/L (12-78); ALBUMIN 2.9 G/DL (3.4-5.0); ALBUMIN/GLOBULIN RATIO 0.8 (1.0-2.7); ALKALINE PHOSPHATASE 98 U/L (46-116); ANION GAP 9 mmol/L (5-15); ASPARTATE AMINO TRANSFERASE 18 U/L (15-37); BILIRUBIN,TOTAL 0.5 MG/DL (0.2-1.0); BLOOD UREA NITROGEN 11 mg/dL (7-18); CALCIUM 8.6 MG/DL (8.5-10.1); CARBON DIOXIDE 24 MMOL/L (21-32); CHLORIDE 108 MMOL/L (98-107); POTASSIUM 4.1 MMOL/L (3.5-5.1); SODIUM 141 MMOL/L (136-145)
[2020-04-08] MEDS ORDERED: levETIRAcetam 500mg/5ml Liquid NG SCH (09:00)
[2020-04-08] MEDS: Heparin 5000 units/ml inj SUBQ SCH ×2 (09:25→20:49)
[2020-04-08] MEDS: Vitamin D 1000 IU Tab ORAL SCH (09:25)
[2020-04-08] MEDS: Losartan 50mg tab ORAL SCH (09:26)
[2020-04-08 12:00] VITALS: BP 118/75
[2020-04-08] MEDS ORDERED: LORazepam 1mg tab ORAL SCH (13:00)
--- NOTE | 2020-04-08 15:30 | General Progress Note ---
Subjective ROS Limited/Unobtainable: No Constitutional: Reports: malaise, weakness HEENT: Reports: no symptoms Cardiovascular: Reports: no symptoms Respiratory: Reports: no symptoms Gastrointestinal/Abdominal: Reports: no symptoms Genitourinary: Reports: no symptoms Neurologic/Psychiatric: Reports: no symptoms Endocrine: Reports: no symptoms Hematologic/Lymphatic: Reports: no symptoms Allergies: Coded Allergies: No Known Allergies (Unverified , 04/15/17) All Systems: reviewed and negative except above Subjective no events. abnormal EEG noted. per staff unsteady gait. on keppra. Neuro eval pending Objective Last 24 Hour Vital Signs Date Time Temp Pulse Resp B/P (MAP) Pulse Ox O2 Delivery O2 Flow Rate FiO2 04/08/20 12:00 98.0 62 20 118/75 (89) 98 04/08/20 11:44 52 04/08/20 11:34 Room Air 04/08/20 09:26 118/73 04/08/20 09:00 69 118/73 04/08/20 09:00 Room Air 04/08/20 09:00 51 52 62 04/08/20 08:00 97.7 69 21 118/73 (88) 96 04/08/20 07:35 62 04/08/20 04:00 97.7 56 20 124/71 (88) 98 04/08/20 04:00 50 04/08/20 03:30 34 04/08/20 00:00 60 04/08/20 00:00 98.1 64 20 141/87 (105) 97 04/07/20 21:00 Room Air 04/07/20 21:00 64 68 72 04/07/20 20:00 68 04/07/20 20:00 98.4 65 16 122/71 (88) 100 04/07/20 16:00 98.1 62 20 121/69 (86) 98 04/07/20 16:00 54 Intake and Output 04/07/20 04/08/20 19:00 07:00 Intake Total 440 ml 500 ml Output Total 1200 ml 1200 ml Balance -760 ml -700 ml Intake Oral 440 ml 500 ml Output Urine Total 1200 ml 1200 ml # Voids 6 5 Laboratory Tests 04/08/20 05:35: White Blood Count 4.2L, Red Blood Count 3.89L, Hemoglobin 12.7, Hematocrit 37.0, Mean Corpuscular Volume 95, Mean Corpuscular Hemoglobin 32.5H, Mean Corpuscular Hemoglobin Concent 34.2, Red Cell Distribution Width 13.0, Platelet Count 195, Mean Platelet Volume 8.4, Neutrophils (%) (Auto) 34.1L, Lymphocytes (%) (Auto) 46.8H, Monocytes (%) (Auto) 12.5H, Eosinophils (%) (Auto) 5.4H, Basophils (%) (Auto) 1.2, Sodium Level 141, Potassium Level 4.1, Chloride Level 108H, Carbon Dioxide Level 24, Anion Gap 9, Blood Urea Nitrogen 11, Creatinine 1.0, Estimat G lomerular Filtration Rate > 60, Glucose Level 91, Calcium Level 8.6, Total Bilirubin 0.5, Aspartate Amino Transf (AST/SGOT) 18, Alanine Aminotransferase (ALT/SGPT) 13, Alkaline Phosphatase 98, Total Protein 6.5, Albumin 2.9L, Globulin 3.6, Albumin/Globulin Ratio 0.8L, Rapid Plasma Reagin [Pending], Treponema pallidum Ab (FTA-ABS) [Pending] Height (Feet): 5 Height (Inches): 4.00 Weight (Pounds): 209 General Appearance: WD/WN, alert Neck: supple Cardiovascular: normal rate Respiratory/Chest: chest wall non-tender, lungs clear Abdomen: normal bowel sounds, non tender, soft, no organomegaly Edema: no edema noted Arm (L), no edema noted Arm (R) 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, alert, oriented x 3 Assessment/Plan Problem List: (1) Syncope ICD Codes: R55 - Syncope and collapse SNOMED: 543828667, 9199203 Qualifiers: Qualified Codes: R55 - Syncope and collapse (2) Facial laceration ICD Codes: S01.81XA - Laceration without foreign body of other part of head, initial encounter SNOMED: 942921871, 4670522 Qualifiers: Qualified Codes: S01.81XA - Laceration without foreign body of other part of head, initial encounter (3) Head injury, acute ICD Codes: S09.90XA - Unspecified injury of head, initial encounter SNOMED: 73949609, 4642895 Qualifiers: Qualified Codes: S09.90XA - Unspecified injury of head, initial encounter (4) Bronchitis ICD Codes: J40 - Bronchitis, not specified as acute or chronic SNOMED: 48742930 Status: stable Assessment/Plan: cont ivf PT eval Neuro eval re: EEG findings. keppra rx monitor bp dc planning pending PT eval and neuro consult D/w and pt POC Ye Lester MD Apr 08, 2020 15:30
[2020-04-08 16:00] VITALS: BP 127/64
--- NOTE | 2020-04-08 19:29 | NUR ---
NURSE HAND-OFF REPORT: Important Events on Shift: Pt still having episodes of bradycardia. MD aware. Patient Status: stable Diet: no added salt Pending Orders: Pending Results/Labs: Pending MD notification: Latest Vital Signs: Temperature 98.1 , Pulse 67 , B/P 127 /64 , Respiratory Rate 19 , O2 SAT 100 , Room Air, O2 Flow Rate . Vital Sign Comment: EKG Rhythm: Sinus Bradycardia Rhythm change?: N MD Notified?: Darion -Dr. Trae CANALES Response: Message left await call Latest Romo Fall Score: 60 Fall Risk: High Risk Safety Measures: Call light Within Reach, Bed Alarm Zone 1, Side Rails Side Rails x2, Bed position Low and Locked. Fall Precautions: Yellow Socks Yellow Gown Door Sign Patient Fall Education Report given to MAURICIO Gonzalez
--- NOTE | 2020-04-08 19:30 | NUR ---
NURSE NOTES: Report received from MAURICIO Spence. No SOB or distress. Patient is in sinus kailey. rn urgent care intact. Bed at lowest position locked with side rails up. Call light and bedside table within reach. Will continue with plan of care.
[2020-04-08 20:00] VITALS: BP 128/70
[2020-04-09] VITALS: BP 138/71
--- NOTE | 2020-04-09 01:33 | Cardiology Progress Note ---
Subjective DATE OF SERVICE: Apr 08, 2020 No new complaints. Denies dizziness, CP, N/V, or SOB. Monitor: sinus with episodes of asymptomatic bradycardia and rare PVC's; lowest rate 47. Carotid duplex: less than 50% stenoses myah. Head CT: encephalomalacia due to prior infarcts. EEG: reveals epileptic focus Objective Last 24 Hour Vital Signs Date Time Temp Pulse Resp B/P (MAP) Pulse Ox O2 Delivery O2 Flow Rate FiO2 04/08/20 16:00 98.1 67 19 127/64 (85) 100 04/08/20 15:42 53 04/08/20 12:00 98.0 62 20 118/75 (89) 98 04/08/20 11:44 52 04/08/20 11:34 Room Air 04/08/20 09:26 118/73 04/08/20 09:00 69 118/73 04/08/20 09:00 Room Air 04/08/20 09:00 51 52 62 04/08/20 08:00 97.7 69 21 118/73 (88) 96 04/08/20 07:35 62 04/08/20 04:00 97.7 56 20 124/71 (88) 98 04/08/20 04:00 50 04/08/20 03:30 34 ROS: unchanged from my evaluation of 04/05/20. HEENT: normal ENT inspection RHYTHM: NSR LUNGS: lungs clear bilaterally CARDIAC: normal rate, regular rhythm, normal S1 and S2, gallop/S4 ABDOMEN: normal bowel sounds, non tender, soft, no organomegaly EXTREMITIES: no calf tenderness, No edema Laboratory Tests Test 04/08/20 05:35 White Blood Count 4.2 K/UL (4.8-10.8) L Red Blood Count 3.89 M/UL (4.20-5.40) L Hemoglobin 12.7 G/DL (12.0-16.0) Hematocrit 37.0 % (37.0-47.0) Mean Corpuscular Volume 95 FL (80-99) Mean Corpuscular Hemoglobin 32.5 PG (27.0-31.0) H Mean Corpuscular Hemoglobin Concent 34.2 G/DL (32.0-36.0) Red Cell Distribution Width 13.0 % (11.6-14.8) Platelet Count 195 K/UL (150-450) Mean Platelet Volume 8.4 FL (6.5-10.1) Neutrophils (%) (Auto) 34.1 % (45.0-75.0) L Lymphocytes (%) (Auto) 46.8 % (20.0-45.0) H Monocytes (%) (Auto) 12.5 % (1.0-10.0) H Eosinophils (%) (Auto) 5.4 % (0.0-3.0) H Basophils (%) (Auto) 1.2 % (0.0-2.0) Sodium Level 141 MMOL/L (136-145) Potassium Level 4.1 MMOL/L (3.5-5.1) Chloride Level 108 MMOL/L (98-107) H Carbon Dioxide Level 24 MMOL/L (21-32) Anion Gap 9 mmol/L (5-15) Blood Urea Nitrogen 11 mg/dL (7-18) Creatinine 1.0 MG/DL (0.55-1.30) Estimat Glomerular Filtration Rate > 60 mL/min (>60) Glucose Level 91 MG/DL (74-106) Calcium Level 8.6 MG/DL (8.5-10.1) Total Bilirubin 0.5 MG/DL (0.2-1.0) Aspartate Amino Transf (AST/SGOT) 18 U/L (15-37) Alanine Aminotransferase (ALT/SGPT) 13 U/L (12-78) Alkaline Phosphatase 98 U/L (46-116) Total Protein 6.5 G/DL (6.4-8.2) Albumin 2.9 G/DL (3.4-5.0) L Globulin 3.6 g/dL Albumin/Globulin Ratio 0.8 (1.0-2.7) L Rapid Plasma Reagin Pending Treponema pallidum Ab (FTA-ABS) Pending Assessment/Plan Assessment/Plan Syncopal episode Sinus bradycardia Unifocal PVC's Seizure focus by EEg Hypertension/HHD Hx CVA with visual disturbance and dysarthria Hx B12 and vitamin D deficiencies Hyperlipidemia Monitor orthostatics DC IVF Titrate antiHTN meds Continue antiplt and antilipid rx Continue Keppra Continue telemetry; may consider outpatient Aguilar No MD Apr 09, 2020 01:33
[2020-04-09 04:00] VITALS: BP 127/70
--- NOTE | 2020-04-09 07:25 | NUR ---
NURSE NOTES: RECEIVED PATIENT IN BED, A/A/OX4, VERBALLY RESPONSIVE. ABLE TO MAKE HER OWN NEEDS. DENIES ANY PAIN/DISCOMFORT AT THIS TIME. NO S/S OF RESPIRATORY DISTRESS NOTED. PATIENT HAD NO APPETITE FOR BREAKFAST INSTEAD WOULD LIKE TO HAVE FRUIT CUP. DR. GRANT WAS @ BEDSIDE. SKIN IS INTACT. PIV ON RIGHT HAND 24G RUNNING SALINE LOCK. BED IS ON LOWEST POSITION, BEDSIDE RAILS ARE UP X2, INSTRUCTED TO CALL FOR ASSISTANCE. SIDERAILS ARE PADDED FOR SEIZURE PRECAUTION. NO ACTIVITY. BRAKES AND LOCK ENGAGED FOR SAFETY. CALL LIGHT IS WITHIN REACH. WILL CONTINUE WITH THE PLAN OF CARE.
--- NOTE | 2020-04-09 07:34 | NUR ---
NURSE HAND-OFF REPORT: Important Events on Shift:[] Patient Status: [Stable Alert and oriented x4] Diet: [ALEXIS] Pending Orders: [] Pending Results/Labs:[] Pending MD notification:[] Latest Vital Signs: Temperature 97.6 , Pulse 55 , B/P 127 /70 , Respiratory Rate 19 , O2 SAT 97 , Room Air, O2 Flow Rate . Vital Sign Comment: [] EKG Rhythm: Sinus Bradycardia Rhythm change?: N MD Notified?: Darion -Dr. Trae CANALES Response: Message left await call Latest Romo Fall Score: 45 Fall Risk: High Risk Safety Measures: Call light Within Reach, Bed Alarm Zone 1, Side Rails Side Rails x2, Bed position Low and Locked. Fall Precautions: Yellow Socks Yellow Gown Door Sign Patient Fall Education Report given to [MAURICIO Grant].
[2020-04-09 08:00] VITALS: BP 129/76
[2020-04-09] MEDS: Vitamin D 1000 IU Tab ORAL SCH (08:07)
[2020-04-09] MEDS: Losartan 50mg tab ORAL SCH (08:07)
[2020-04-09] MEDS: Heparin 5000 units/ml inj SUBQ SCH (08:09)
--- NOTE | 2020-04-09 08:32 | Neurology Progress Note ---
Interim History Interim History ROS Limited/Unobtainable: No Review of Systems Neuro Review of Systems patient without headache,syncope seizures,new muscle weakness Objective Physical Exam Last Vital Signs Date Time Temp Pulse Resp B/P (MAP) Pulse Ox O2 Delivery O2 Flow Rate FiO2 04/09/20 08:07 129/67 04/09/20 08:07 57 04/09/20 04:00 97.6 19 97 04/08/20 21:00 Room Air Neurologic Exam Mental Status: oriented x4 - date 04/16/20Sunday can spell world backwards spoke speech fluent Speech: normal speech, no dysarthia Cranial Nerves III, IV, : PERRLA, EOMI, pupils Cranial Nerve V: normal facial sensations, temporales function normal, masseters function normal, pterygoids function normal Cranial Nerve VII: no facial asymmetry, normal facial expressions Cranial Nerve VIII: normal hearing, no nystagmus Cranial Nerve XII: tongue midline, no tongue atrophy/fasciculations Motor System: normal muscle tone, strength 5/5, no involuntary movement, no muscle wasting, other - left leg strength 4+ Deep Tendon Reflexes: 1+ bicep (L), 1+ bicep (R), 1+ tricep (L), 1+ tricep (R), 1+ brachioradialis (L) - left leg strenght 4+ Impression/Recommendations Status: stable Maco Little MD Apr 09, 2020 08:32
--- NOTE | 2020-04-09 08:36 | Neurology Progress Note ---
Interim History Interim History ROS Limited/Unobtainable: No Objective Physical Exam Last Vital Signs Date Time Temp Pulse Resp B/P (MAP) Pulse Ox O2 Delivery O2 Flow Rate FiO2 04/09/20 08:07 129/67 04/09/20 08:07 57 04/09/20 04:00 97.6 19 97 04/08/20 21:00 Room Air Neurologic Exam Mental Status: oriented x4 - date 04/16/20Sunday can spell world backwards spoke speech fluent Speech: normal speech, no dysarthia Cranial Nerves III, IV, : PERRLA, EOMI, pupils Cranial Nerve V: normal facial sensations, temporales function normal, masseters function normal, pterygoids function normal Cranial Nerve VII: no facial asymmetry, normal facial expressions Cranial Nerve VIII: normal hearing, no nystagmus Cranial Nerve XII: tongue midline, no tongue atrophy/fasciculations Motor System: normal muscle tone, strength 5/5, no involuntary movement, no muscle wasting, other - left leg strength 4+ Deep Tendon Reflexes: 0 ankle (L), 0 ankle (R); 1+ bicep (L), 1+ bicep (R), 1+ tricep (L), 1+ tricep (R), 1+ brachioradialis (L) - left leg strenght 4+, 1+ brachioradialis (R), 1+ knee (L), 1+ knee (R) Gait: other - not tested Impression/Recommendations Status: stable Diagnostic Impression probable seizure ,old cva Recommendations continue rx. Maco Little MD Apr 09, 2020 08:36
--- NOTE | 2020-04-09 08:45 | Consultation ---
DATE OF CONSULTATION: 04/08/2020 NEUROLOGICAL CONSULTATION CONSULTING PHYSICIAN: Maco Little MD. HISTORY OF PRESENT ILLNESS: This is a one of several [facility] admissions for this 74-year-old right-handed woman with a history of hypertension discovered in 2008, hyperlipidemia discovered in 2008, and a previous stroke in 2008. She was admitted with a blackout spell on the day prior to admission. The patient has a history of stroke and was "in a coma" for six months and hospitalized in . She had some left-sided weakness the patient has had some problems relating other symptoms, though now her strength is "normal." The patient about two weeks ago was sitting in a chair and was found on the floor. She was unconscious for unknown amount of time. There was no chest pain, palpitation, shortness of breath, dizzy spells, or diaphoresis. The patient did not see a doctor at that time. The patient on 04/05/2020 was sitting in a chair watching television around 8:30 p.m., next thing she remembers she woke up and she was bleeding from the right forehead. A neighbor found her. Apparently, she did have at least one glass of vodka prior to this episode. The patient may have had a "weird sensation in her head and neck." The patient was found around 12 a.m. She was then brought to the ER. Her CBC was normal except for elevated indices. Platelet count was normal. Chemistries revealed a slightly elevated BUN of 21 with a creatinine of 1.4. Sodium was normal. Calcium was normal. Magnesium does not appear to have been tested. TSH was normal. Vitamin B12 was 461 on 04/06/2020. The patient had a chest x-ray, which revealed no acute changes, some cardiomegaly, and tortuous aorta. A CT scan of the brain on 04/05/2020 revealed no acute intracranial abnormality, regions of bilateral encephalomalacia likely sequelae of prior infarct, chronic microvascular ischemic and age-related parenchymal changes. The encephalomalacia involved both frontal lobes, parietal and occipital lobes. The carotid duplex scan on 04/06/2020 revealed normal bilateral vertebral arteries with antegrade flow, less than 50% narrowing bilaterally in the carotid arteries. The patient's PT and PTT were normal. The patient had an EEG on 04/07/2020, which revealed left frontotemporal polymorphic delta activity seen during drowsiness and presence of T3 sharp and slow wave discharges occurring singly and infrequently. Impression: 1. Left frontotemporal focal dysfunction. 2. Left mid temporal level epileptogenic focus with interictal discharges seen on the EEG. the patient's presyncopal episode and EEG. The patient had been on Plavix 75 mg, losartan and simvastatin 20 mg, and amlodipine 10 mg. The patient was admitted on stroke. The patient denies any history of sexually transmitted diseases. She does have B12 deficiency. PAST MEDICAL HISTORY/PAST MEDICAL ILLNESSES: 1. Hypertension. 2. Decreased visual acuity. 3. Vitamin D deficiency. 4. Vitamin B12 deficiency due to pernicious anemia. 5. Hyperlipidemia. MEDICATIONS: See above. ALLERGIES: None known. SOCIAL HISTORY: She is unmarried and has no children. FAMILY HISTORY: Father of heart disease and mother of . PAST SURGICAL HISTORY: None. REVIEW OF SYSTEMS: Her appetite is good. Weight is stable at 215 pounds, 5 feet and 4 inches tall. PHYSICAL EXAMINATION: GENERAL: This is a well-developed obese woman, lying in bed, in no acute distress. VITAL SIGNS: Blood pressure is 118/73, pulse is 69 and regular, respirations 21, temperature is 97.7 degrees. HEENT: Examination of her head is basically unremarkable. She has a bandage. Head exam was unremarkable except for a bandage on the right lower frontal . NECK: Supple. Carotids are +2. No bruits could be appreciated. LUNGS: Clear. CARDIOVASCULAR: PMI not felt. JVP not well visualized. Heart tones were distant. There is no obvious S3, S4, murmurs, or rubs appreciated. ABDOMEN: Obese. Bowel sounds intact. No tenderness, masses, or organomegaly. EXTREMITIES: Intact. NEUROLOGIC: MENTAL STATUS: The patient is alert, basically awake. Judgment was not tested. Affect is appropriate of her mood. Memory, past memory is intact to her birthday, which is 1945. Immediate recall is 3/3 objects. Recent recall is only 1-2/3 objects in 5 minutes. Intellect and orientation . She knew she was at [facility] in second floor. Speech is slow without paraphasias. Comprehension and repetition were intact, however, on spelling world backwards, she spelled LDROW. CRANIAL NERVE EXAMINATION: CRANIAL NERVE II: Visual jimenez are intact to confrontation. Visual acuity not tested. CRANIAL NERVES III, IV, AND : Extraocular motility is full. Pupils are approximately 2.5 to 3 mm, round, and sluggishly reactive to light. CRANIAL NERVE V: Facial and corneal sensations are intact to fine touch. CRANIAL NERVE VII: Facial strength appeared to be 5/5. CRANIAL NERVE VIII: Auditory acuity was basically intact. CRANIAL NERVES IX AND X: Not tested. CRANIAL NERVE XI: Normal. CRANIAL NERVE XII: Normal. MUSCLE: Muscle bulk is intact. Tone is normal. Strength 5/5 proximally and distally in the upper extremity throughout. There was no pronator drift. Lower extremities, left lower extremity strength is 5-/5. Reflexes are +2 in the upper extremities, +2 at the knees, Babinski response ankles. Toes are difficult to evaluate because of a lot of withdrawal. COORDINATION: [id number], [id number] testing, and rapid alternating movements were somewhat clumsy because . GAIT AND STATION: Not tested. SENSORY: Pinprick, fine touch, proprioception were intact. IMPRESSION: It is hard to say what this patient had. She obviously could have had seizures or at least on April 05 could not herself out and might be the reason why she woke up at 12 in the evening. She has cerebrovascular disease with multiple strokes and this is a common cause of epilepsy in the elderly. The EEG is suggestive of epileptiform discharges. Question ____ should she be treated. Given the abnormal EEG prior to putting her on Keppra 500 mg b.i.d. six months is interesting. PLAN: 1. Keppra 500 mg p.o. b.i.d. 2. I will speak to you about this case. . 3. cardiac workup. Thank you for this interesting case. Maco MD Sidney DR: NENA JOB#: [id number] CC:
--- NOTE | 2020-04-09 11:02 | NUR ---
NURSE NOTES: CALLED DR ENAMORADO'S OFFICE AND SPOKE WITH MAKENZIE. CONVEYED THE MONITOR STRIP. AWAITS FOR A CALLBACK.
[2020-04-09 11:45] VITALS: BP 113/65
--- NOTE | 2020-04-09 12:20 | General Progress Note ---
Subjective ROS Limited/Unobtainable: No Constitutional: Reports: malaise, weakness HEENT: Reports: no symptoms Cardiovascular: Reports: no symptoms Respiratory: Reports: no symptoms Gastrointestinal/Abdominal: Reports: no symptoms Genitourinary: Reports: no symptoms Neurologic/Psychiatric: Reports: no symptoms Endocrine: Reports: no symptoms Hematologic/Lymphatic: Reports: no symptoms Allergies: Coded Allergies: No Known Allergies (Unverified , 04/15/17) All Systems: reviewed and negative except above Subjective neuro noted. on keneil. "thinks" she feel well enough to go home. a little "dizzy" when walking Objective Last 24 Hour Vital Signs Date Time Temp Pulse Resp B/P (MAP) Pulse Ox O2 Delivery O2 Flow Rate FiO2 04/09/20 11:46 53 57 61 04/09/20 11:45 98.1 57 19 113/65 (81) 96 04/09/20 09:17 Room Air 04/09/20 08:38 57 04/09/20 08:07 129/67 04/09/20 08:07 57 129/76 04/09/20 08:00 96.7 57 20 129/76 (93) 97 04/09/20 04:00 55 04/09/20 04:00 97.6 56 19 127/70 (89) 97 04/09/20 00:00 97.8 60 18 138/71 (93) 98 04/09/20 00:00 58 04/08/20 21:00 55 60 61 04/08/20 21:00 Room Air 04/08/20 20:00 54 04/08/20 20:00 97.8 55 18 128/70 (89) 100 04/08/20 16:00 98.1 67 19 127/64 (85) 100 04/08/20 15:42 53 Intake and Output 04/08/20 04/09/20 19:00 07:00 Intake Total 600 ml 500 ml Output Total 1200 ml Balance 600 ml -700 ml Intake Oral 600 ml 500 ml Output Urine Total 1200 ml # Voids 5 5 # Bowel Movements 1 1 Height (Feet): 5 Height (Inches): 4.00 Weight (Pounds): 209 General Appearance: WD/WN, alert Neck: supple Cardiovascular: normal rate, regular rhythm Respiratory/Chest: chest wall non-tender, lungs clear, normal breath sounds Abdomen: normal bowel sounds, non tender, soft, no organomegaly Edema: no edema noted Arm (L), no edema noted Arm (R) 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 grossly normal, no motor/sensory deficits, alert, oriented x 3, responsive Skin: normal pigmentation Assessment/Plan Problem List: (1) Syncope ICD Codes: R55 - Syncope and collapse SNOMED: 797753803, [id number] Qualifiers: Qualified Codes: R55 - Syncope and collapse (2) Facial laceration ICD Codes: S01.81XA - Laceration without foreign body of other part of head, initial encounter SNOMED: 964151748, 5875866 Qualifiers: Qualified Codes: S01.81XA - Laceration without foreign body of other part of head, initial encounter (3) Head injury, acute ICD Codes: S09.90XA - Unspecified injury of head, initial encounter SNOMED: 45267037, 0189628 Qualifiers: Qualified Codes: S09.90XA - Unspecified injury of head, initial encounter (4) Bronchitis ICD Codes: J40 - Bronchitis, not specified as acute or chronic SNOMED: 13514246 Status: stable Assessment/Plan: anthony funes PT zuleima hoffman planning on sz rx if cleared by Ye Pedroza MD Apr 09, 2020 12:20
[2020-04-09] MEDS ORDERED: KEPPRA500 M4 ORAL (13:21)
--- NOTE | 2020-04-09 13:37 | NUR ---
*-*DISCHARGE PLANNING*-* PATIENT HAS BEEN REFERRED TO: [facility] P: [phone]
--- NOTE | 2020-04-09 14:01 | NUR ---
NURSE NOTES: SPOKE WITH COUSIN CAYETANO TO INFORM REGARDING DISCHARGE. RAI, THE DAUGHTER OF CAYETANO WILL BE THE ONE TO PROVIDE TRANSPORTATION TO THE PATIENT TO GO HOME. DISCHARGE INSTRUCTIONS GIVEN. RX GIVEN AND PERSONAL BELONGINGS REVIEWED AND NOTED. PATIENT WAS SEEN BY PHYSICAL THERAPIST, ADRIANA. HOME HEALTH BEEN ARRANGED BY DELIO DOAN. NO ACUTE CARDIO-RESP DISTRESS NOTED AFTER THE PHYSICAL ACTIVITIES. TOLERATING FOOD INTAKE WELL. AWAITING FOR THE NIECE TO TAKE HER HOME. WILL CONT TO MONITOR.
--- NOTE | 2020-04-09 14:48 | NUR ---
*-*DISCHARGE PLANNED*-* PATIENT HAS BEEN ACCEPTED WITH: [facility] P: [phone] S/W HELENA, WILL SERVICE PATIENT UPON DISCHARGE.
--- NOTE | 2020-04-09 14:59 | NUR ---
NURSE NOTES: d/c home taken by wheelchair to the lobby. Cristela liz @ the driveway. removed youth nutritional monitor, removed heplock. in stable condition. discharge instructions given. personal belongings noted.
--- NOTE | 2020-04-09 15:04 | NUR ---
P.T Note: later entry 1345 P.T evaluation completed. Skilled P.T service not needed at this time as pt is currently at baseline. DC P.T services . Thank for this referral.
--- NOTE | 2020-04-09 21:33 | Cardiology Progress Note ---
Subjective DATE OF SERVICE: Apr 09, 2020 No new complaints. Denies dizziness, CP, N/V, or SOB. Monitor: sinus with episodes of asymptomatic bradycardia and rare PVC's; lowest rate 47. Had 9 beats of VTach today. Carotid duplex: less than 50% stenoses myah. Head CT: encephalomalacia due to prior infarcts. EEG: reveals epileptic focus Prior outpatient ischemia work-up negative Objective Last 24 Hour Vital Signs Date Time Temp Pulse Resp B/P (MAP) Pulse Ox O2 Delivery O2 Flow Rate FiO2 04/09/20 12:21 60 04/09/20 11:46 53 57 61 04/09/20 11:45 98.1 57 19 113/65 (81) 96 04/09/20 09:17 Room Air 04/09/20 08:38 57 04/09/20 08:07 129/67 04/09/20 08:07 57 129/76 04/09/20 08:00 96.7 57 20 129/76 (93) 97 04/09/20 04:00 55 04/09/20 04:00 97.6 56 19 127/70 (89) 97 04/09/20 00:00 97.8 60 18 138/71 (93) 98 04/09/20 00:00 58 ROS: unchanged from my evaluation of 04/05/20. HEENT: normal ENT inspection RHYTHM: NSR LUNGS: lungs clear bilaterally CARDIAC: normal rate, regular rhythm, normal S1 and S2, gallop/S4 ABDOMEN: normal bowel sounds, non tender, soft, no organomegaly EXTREMITIES: no calf tenderness, No edema Assessment/Plan Assessment/Plan Syncopal episode likely due to seizure, rather than arrhythmia Sinus bradycardia Unifocal PVC's Non-sustained Vtach Seizure focus by EEg Hypertension/HHD Hx CVA with visual disturbance and dysarthria Hx B12 and vitamin D deficiencies Hyperlipidemia Monitor orthostatic hypotension Maintain current antiHTN meds Continue antiplt and antilipid rx Continue Camilla Will arrange outpatient Aguilar No MD Apr 09, 2020 21:33
--- NOTE | 2020-04-10 19:21 | Discharge Summary ---
Discharge Summary Discharge Summary _ DATE OF ADMISSION: 04/05/2020 DATE OF DISCHARGE: 04/09/2020 DISCHARGED BY: Dr. Ye Lester CONSULTANTS: Dr. Aguilar Little BRIEF HOSPITAL COURSE: Patient is a 74-year-old female with history of hypertension and prior stroke. Patient was seated on her couch watching TV and woke up on the floor bleeding from the right forehead. She called her neighbor who brought her to the emergency room. Patient denied palpitations nor dizziness. Denied diarrhea, nausea or vomiting. She had been drinking and eating normally. She had a similar episode approximately a month ago. Upon evaluation at ED, vital signs were stable. Blood work was stable except for slightly elevated BUN and creatinine. EKG was in normal sinus rhythm. Chest x-ray did not show any acute disease. Head CT did not show any acute changes. Patient was admitted for evaluation of syncope and head trauma. Patient was admitted to monitored floor. She was given cautious IV hydration. Diuretic was placed on hold. She was given antiplatelet and antilipid therapy. Orthostatic BP was monitored. Carotid duplex showed less than 50% stenosis bilaterally. EEG showed left frontotemporal focal dysfunction and left mid temporal epileptogenic focus with interictal discharges seen. Neurologist was consulted. She was placed on Keppra 500 mg twice daily. She was given physical therapy. Patient had episodes of asymptomatic bradycardia and rare PVCs with lowest rate of 47. She had 9 beats of V. tach. Syncopal episode was likely due to seizure rather than arrhythmia. Patient had prior outpatient ischemia work-up that was negative. Patient will eventually need a ZIO patch as outpatient. Patient was cleared for discharge. FINAL DIAGNOSES: Syncopal episode likely due to seizure rather than arrhythmia Head injury Bronchitis Sinus bradycardia Unifocal PVC Nonsustained V. tach Seizure focus by EEG Hypertensive heart disease History of CVA with visual disturbance and dysarthria History of B12 and vitamin D deficiencies Hyperlipidemia DISPOSITION: Discharge home with home health. DISCHARGE MEDICATIONS: Refer to Discharge Medication List. DISCHARGE INSTRUCTIONS: Follow-up in a week. I have been assigned to complete a discharge summary on this account, I was not involved with the patient's management.--HECTOR Gross Jacqueline Robles NP Apr 10, 2020 19:21
== END 2020-04-09 15:00 | disposition home health service (06) | DRG 41 ==
LOC: EMR 22:21 → 2E 22:53 → EDBEDREQ 23:37 → CMPBEDREQ 23:46 → 4E 04-08 17:17 → 2E 04-08 17:20
PROC: 0KQ13ZZ Repair Facial Muscle, Percutaneous Approach (ICD-10-PCS; principal; 2020-04-05)
DX: G40.89 Other seizures (principal); I47.2 Ventricular tachycardia; S01.81XA Laceration without foreign body of other part of head, initial encounter; S09.90XA Unspecified injury of head, initial encounter; I11.9 Hypertensive heart disease without heart failure; J40 Bronchitis, not specified as acute or chronic; I49.3 Ventricular premature depolarization; I69.322 Dysarthria following cerebral infarction; I69.398 Other sequelae of cerebral infarction; H53.9 Unspecified visual disturbance; E53.8 Deficiency of other specified B group vitamins; E55.9 Vitamin D deficiency, unspecified; E78.5 Hyperlipidemia, unspecified; W19.XXXA Unspecified fall, initial encounter; Y92.009 Unspecified place in unspecified non-institutional (private) residence as the place of occurrence of the external cause
CPT/HCPCS: 36415; 70450; 71045; 80053; 82306; 82607; 82746; 84443; 84484; 85025; 85610; 85730; 86592; 86780; 93005; 93880; 95819; 99285; J7030; J8499

== ENCOUNTER 2020-07-08 12:49 | Inpatient (IN) | payer MEDICARE, OTHER ==
[~2020-07-08] VITALS: Ht 160 cm; Wt 96.2 kg
[~2020-07-08 12:49] MED LIST changes: +KEPPRA500 M4 ORAL
[2020-07-08] MEDS ORDERED: dexAMETHasone 10mg/ml Inj IV ONE (13:00)
[2020-07-08] MEDS ORDERED: Azithromycin 500 MG in NS 275 ML IVPB ONE (13:00)
[2020-07-08] MEDS ORDERED: cefTRIAXone 1 GM in NS 55 ML IV ONE (13:00)
--- NOTE | 2020-07-08 13:02 | Emergency Room Report ---
History of Present Illness General Chief Complaint: Dyspnea/Respdistress Source: Patient Present Illness HPI 75-year-old female with past medical history of seizure, hypertensive heart disease, history of CVA with visual disturbance and dysarthria, B12 deficiency, dyslipidemia, presents to the ED for shortness of breath Also endorses dry cough, wheezing, and nonbloody loose stools since last night. Patient lives alone. Is unaware of recent sick Covid contacts. She denies chest pain, hemoptysis, abdominal pain, back pain, saddle anesthesia, melena, hematochezia, hematuria, dysuria, flank pain, headache, photophobia or neck pain The patient's symptoms were gradual onset, severity was moderate, duration since 1 day. Quality: Short of breath Past medical history: Previous CVA, hypertension, dyslipidemia, seizure disorder Past surgical history: Denies Smoking: Denies Alcohol use: Denies Drug use: Denies Review of systems: CONST: No fevers or chills, No night sweats PULMONARY: ++ cough, ++ shortness of breath CARDIAC: No chest pain, No palpitations GI: No vomiting, ++ diarrhea , No melena_or_BRBPR : No dysuria, No hematuria, No discharge NEURO: No new_focal_weakness_or_numbness, No confusion, No vision changes 14 point Review of Systems is otherwise negative except per HPI Physical Exam: GENERAL: Awake_alert_ nontoxic, no acute distress Spo2 95% on RA -normal EYES: Extraocular muscles are intact. Conjunctivae clear. Lids without swelling ENT: External nose and ear normal_in_appearance. Oropharynx clear. Head_atraumatic, Moist_oral_mucosa NECK: No JVD. No meningismus. No thyromegaly. Supple. Trachea midline RESP: Normal respiratory effort. Symmetric rise. No stridor. Clear_to_auscultation_No_rales_No_wheezes CARDIAC: Bradycardic rate and regular rhytm. No_significant pedal edema. ABDOMEN: Soft. Nondistended. Nontender_No_rebound_or_guarding. MSK: Normal muscle tone, without rigidity. Extremities without asymmetric deformity or swelling. SKIN: Warm and dry. No visible cyanosis or pallor NEUROLOGIC: Alert, oriented x3. Motor_and_sensation_grossly_intact. No truncal ataxia. Gait_normal Psych: Normal mood and affect, normal judgment and insight - COORDINATION OF CARE Case was discussed with: Patient Any labs and imaging that were ordered were interpreted as part of the medical decision making: Medical Decision Making/Plan: DDx: includes COVID-19 / coronavirus infection, URI, bronchitis, viral syndrome, postnasal drip, versus less likely pneumonia, among others. The patient is nontoxic and well-appearing and has mild shortness of breath. The patient exhibits no evidence of respiratory distress. She is incidentally found to have bradycardia. Mental status is intact. No focal neurologic deficits. BP is stable. No evidence of ENT emergency, airway patent, tolerating oral liquids and solids. No stridor or difficulty breathing. Tonsils within normal limits, no evidence of swelling, exudate or strep pharyngitis. No indication for empiric antibiotic treatment. Sublingual space soft. CXR shows R hilar pna and CM. Labs are pending. EKG shows sinus bradycardia with rate of 48. There are nonspecific ST changes in the inferior leads as well as T wave inversions in V1 and V2 that are similar when compared to previous EKG from April 2020. Based on the patients presenting signs, symptoms, exam, and risk factors (living in an area endemic for a coronavirus outbreak = [place]), the patient has been screened for coronavirus infection and is suspected of having COVID 19. ED intervention included NS, azithro, Rocephin, and Decadron Signed out to Dr. Escobar pending labs. 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 COVID-19 Screening: Negative COVID-19 COVID-19 Testing Source: 2 months ago Nursing Documentation-PMH Hx Cardiac Problems: Yes Hx Hypertension: Yes Hx Gastrointestinal Problems: No Hx Neurological Problems: Yes Hx Cerebrovascular Accident: Yes - 2010, no residual Hx Seizures: Yes Hx Syncope: Yes Physical Exam Vital Signs Date Time Temp Pulse Resp B/P (MAP) Pulse Ox O2 Delivery O2 Flow Rate FiO2 07/08/20 12:54 98.2 52 20 112/70 (84) 95 Room Air Sp02 EP Interpretation: reviewed, normal Medical Decision Making Diagnostic Impression: Primary Impression: Dyspnea Additional Impressions: Suspected 2019-nCoV infection Bradycardia EKG Diagnostic Results Troponin ordered: Yes SHANNON Delgado 12-lead EKG (interpreted by me) Time: 1314 Indication: Rhythm analysis Tracing visualized and Interpreted by me. Rhythm: Sinus bradycardia Rate: 48 bpm QTc: 462 Morphology: No_significant_ST_elevations_or_depressions, No STEMI Impression: Sinus bradycardia. Nonspecific ST changes. T wave inversions in lead V1 and V2 Rhythm Strip Diag. Results Rhythm Strip Time: 13:11 EP Interpretation: yes Rate: 85 Rhythm: NSR, no PVC's, no ectopy Chest X-Ray Diagnostic Results Chest X-Ray Diagnostic Results : SHANNON Delgado Chest X-Ray: Views: [ 1 ] view(s) Indication: Cough Findings: CM. Mediastinum normal. R hilar infiltrate. Impression: CM, R hilar pna, LLL atx The X-ray(s) were independently viewed and interpreted contemporaneously Electronically signed by Alice guallpa DO Reevaluation Time: 14:00 Last Vital Signs Date Time Temp Pulse Resp B/P (MAP) Pulse Ox O2 Delivery O2 Flow Rate FiO2 07/08/20 12:54 98.2 52 20 112/70 (84) 95 Room Air Status: improved Admit Decision Time: 14:00 Condition: Stable Signed Out To: Alice Manzanares D.O. Jul 08, 2020 13:02
[2020-07-08 13:45] VITALS: BP 110/65
--- NOTE | 2020-07-08 13:45 | NUR ---
ED Nurse Note: Pt walked in from home for SOB since last night. 98% RA, HR 57. Pt is alert and orientedx4, ambulatory. She states she mostly has SOB while walking. Set up on monitor. Blood, COVID swab sent to lab. IV established. EKG already done.
[2020-07-08 14:26] LABS: BASOPHILS % (AUTO) 1.5 % (0.0-2.0); EOSINOPHILS % (AUTO) 0.8 % (0.0-3.0); HEMATOCRIT 40.5 % (37.0-47.0); HEMOGLOBIN 12.7 G/DL (12.0-16.0); LYMPHOCYTES % (AUTO) 27.8 % (20.0-45.0); MEAN CORPUSCULAR VOLUME 105 FL (80-99); MONOCYTES % (AUTO) 9.9 % (1.0-10.0); PLATELET COUNT 212 K/UL (150-450); RED BLOOD COUNT 3.85 M/UL (4.20-5.40); RED CELL DISTRIBUTION WIDTH 14.3 % (11.6-14.8); WHITE BLOOD COUNT 7.6 K/UL (4.8-10.8)
[2020-07-08 14:30] LABS: INR 1.1 (0.9-1.1)
[2020-07-08 14:31] LABS: ANION GAP 10 mmol/L (5-15); BLOOD UREA NITROGEN 21 mg/dL (7-18); CALCIUM 8.8 MG/DL (8.5-10.1); CARBON DIOXIDE 26 MMOL/L (21-32); CHLORIDE 104 MMOL/L (98-107); CREATININE 1.3 MG/DL (0.55-1.30); POTASSIUM 3.6 MMOL/L (3.5-5.1); SODIUM 140 MMOL/L (136-145)
--- NOTE | 2020-07-08 14:34 | Diagnostic Imaging Report ---
Procedure: XRAY Chest 1v Reason for study: Reason For Exam: COUGH Comparison films: 04/05/2020. FINDINGS: A single one view chest is obtained. Vascularity is normal. Bilateral perihilar infiltrates noted. Cardiac and mediastinal silhouette are within normal limits. CP angles are sharp. The bony thorax appear unremarkable. IMPRESSION: Bilateral perihilar infiltrates.
[2020-07-08 14:48] LABS: ALANINE AMINOTRANSFERASE 23 U/L (12-78); ALBUMIN 3.3 G/DL (3.4-5.0); ALBUMIN/GLOBULIN RATIO 0.9 (1.0-2.7); ALKALINE PHOSPHATASE 109 U/L (46-116); ASPARTATE AMINO TRANSFERASE 23 U/L (15-37); CREATINE KINASE 57 U/L (26-308); FERRITIN 161 NG/ML (8-388); LACTATE DEHYDROGENASE 171 U/L (81-234)
[2020-07-08 16:14] VITALS: BP 113/68
--- NOTE | 2020-07-08 16:18 | NUR ---
ED Nurse Note: Report given to Lizy MARTÍNEZ.
--- NOTE | 2020-07-08 18:20 | NUR ---
ED Nurse Note: Pt transferred to tele floor with all belongings. No acute distress. Cleared by ERMD to be transferred to tele.
--- NOTE | 2020-07-08 18:35 | NUR ---
NURSE NOTES: Pt transferred from ED to room 201-2. Pt on 2L nasal cannula, no distress or SOB noted. Vital signs taken. hiv counselor applied. Belongings check list done and signed by receiving nurse.
[2020-07-08 18:54] VITALS: BP 137/85
--- NOTE | 2020-07-08 19:23 | NUR ---
NURSE HAND-OFF REPORT: Important Events on Shift:New admission Patient Status: Stable Diet: Pending Orders: All admission orders Pending Results/Labs: Pending MD notification: Latest Vital Signs: Temperature 98.1 , Pulse 62 , B/P 137 /85 , Respiratory Rate 18 , O2 SAT 95 , Nasal Cannula, O2 Flow Rate 2.0 . Vital Sign Comment: Stable EKG Rhythm: Sinus Rhythm Rhythm change?: MD Notified?: - MD Response: Latest Romo Fall Score: 45 Fall Risk: Safety Measures: Call light , Bed Alarm , Side Rails , Bed position . Fall Precautions: Report given to Jing/RN.
--- NOTE | 2020-07-08 19:24 | NUR ---
NURSE NOTES: Received report from MAURICIO Hermosillo; pt new admit from ER around 1825 in room 209-2; AOX4; ambulatory to the bathroom with assistance but with bedside commode; on O2 2L/min via NC, in no acute distress; seizure precautions so both upper side rails padded; admission cardiac rhythm SR; Peripheral IV site on R AC 20 gauge s/l intact and patent; needs urine specimen, will f/u. awaiting MD orders; call light within reach; bed locked and in low position; side rails x2; will continue to monitor.
[2020-07-08 20:00] VITALS: BP 145/80
--- NOTE | 2020-07-08 20:06 | NUR ---
NURSE NOTES: Contacted Dr. Larkin; left urgent message to get admission orders; relayed lab results and pt hx; awaiting MD orders/response.
--- NOTE | 2020-07-08 20:50 | NUR ---
NURSE NOTES: Left urgent miriamag eto Dr. Larkin again regarding admission orders; awaiting MD response.
--- NOTE | 2020-07-08 20:55 | NUR ---
NURSE NOTES: Dr. Larkin called back to give admission orders; pt full code and regular diet; O2 therapy @ 2L/min via NC, ok to continue home meds; read back orders to MD; per Dr. Larkin he will place additional orders later.
--- NOTE | 2020-07-08 21:08 | NUR ---
NURSE NOTES: Left another urgent message to Dr. Larkin to clarify 2 medication orders that are not in pharmacy formulary and DVT px; relayed pharmacy recommendations for simvastatin 20 mg PO QHS and losartan/hydrochlorothiazide 100-12.5 mg; awaiting MD orders.
[2020-07-09] VITALS: BP 130/87
--- NOTE | 2020-07-09 00:17 | NUR ---
NURSE NOTES: Called and left urgent message to Dr. Larkin to clarify covid-19 test whether it is rapid or PCR; awaiting MD response.
[2020-07-09] MEDS: Albuterol/Ipratropium 3ml neb HHN SCH ×4 (02:20→19:40)
--- NOTE | 2020-07-09 02:29 | Consultation ---
DATE OF CONSULTATION: 07/08/2020 CARDIOLOGY CONSULTATION CONSULTING PHYSICIAN: Aguilar Larkin M.D. REQUESTING PHYSICIAN: Ye Lester M.D. REASON: Bradycardia. HISTORY OF PRESENT ILLNESS: This 75-year-old female has a longstanding history of hypertensive heart disease, asymptomatic sinus node disease with bradycardia. She was increasingly weak, short of breath, and congested today. She has also had some wheezing and loose stools. She was weak and unable to mobilize herself today without feeling dizzy and lightheaded. As a result, she came to the emergency room where a diagnostic workup was undertaken and hospitalization initiated. I have been asked to assist with cardiovascular care addressing her bradycardia. PAST MEDICAL HISTORY: Cerebrovascular disease, history of cerebrovascular accident with partial blindness, seizure disorder, hypertensive heart disease, diastolic dysfunction, B12 deficiency, pernicious anemia, dyslipidemia, sinus bradycardia, status post repair of . ALLERGIES: None. MEDICATIONS: Reviewed. FAMILY HISTORY: Notable for hypertension. SOCIAL HISTORY: Negative for smoking, alcohol, or substance abuse. REVIEW OF SYSTEMS: She had her earlobe repaired yesterday as an outpatient by Dr. Guzmán. She had an outpatient echocardiogram in the last month revealing normal ejection fraction with concentric hypertrophy and a diastolic relaxation abnormality. She has not had any syncopal episodes. PHYSICAL EXAMINATION: GENERAL: In no acute distress. VITAL SIGNS: Oxygen saturation room air 95%, blood pressure 112/70, heart rate 52, respiratory rate 20, and afebrile. HEENT: Ear lobes with dressings. NECK: Supple. LUNGS: Coarse breath sounds with rhonchi. CARDIAC: Regular rhythm. Slow rate. Normal S1, S2. ABDOMEN: Soft. No edema. LABORATORY AND DIAGNOSTIC DATA: Chest x-ray reveals bilateral hilar infiltrates. COVID rapid swab is negative. White count 7.6, hemoglobin 12.7. Potassium 3.6, lactate 1.2, BUN 21, creatinine 1.3. Pro-natriuretic peptide 3800. Troponin negative. EKG with sinus bradycardia, first-degree AV block. IMPRESSION: 1. Community-acquired pneumonia. Rule out COVID- 19. 2. Hypertensive heart disease. 3. Acute on chronic diastolic congestive heart failure. 4. Sinus bradycardia. 5. Seizure disorder. 6. Cerebrovascular disease with cerebrovascular accident. PLAN: 1. Cardiac monitoring. 2. Cautious hydration. 3. Empiric antimicrobials. 4. Respiratory hygiene. 5. Bronchodilators. 6. EP consultation. 7. DVT prophylaxis. Aguilar Larkin M.D. DR: LEANNA JOB#: [id number] CC:
[2020-07-09 04:00] VITALS: BP 135/79
--- NOTE | 2020-07-09 04:30 | NUR ---
NURSE NOTES: EKG done per protocol d/t abnormal hearth rhythm via library monitor; EKG performed and shows atrial flutter with variable AVB, non-specific ST and T wave abnormality, prolonged QT, abnormal ECG; charge nurse aware; called and left urgent message to Dr. Larkin regarding results; pt easily arousable; able to verbalize needs; denies discomfort; V/S relayed: 97.6D-08-16-135/79-93% on 2L via NC. Awaiting MD response
--- NOTE | 2020-07-09 06:58 | NUR ---
NURSE NOTES: Dr. Lester came to visit pt; relayed EKG results of episode of afib/aflutter; no orders given; endorsed to AM RN
--- NOTE | 2020-07-09 07:00 | NUR ---
RESPIRATORY NOTES: Non-admin reason (DuoNeb): Unable to administer HHN treatments to PUI PT's. MAURICIO ocasio.
--- NOTE | 2020-07-09 07:00 | NUR ---
NURSE HAND-OFF REPORT: Important Events on Shift: with episode of aflutter/afib during 0400 rhythm strips, EKG performed per protocol; results relayed to Dr. Larkin via urgent message, still awaiting MD response; COVID-19 PCR test collected; still needs urine specimen; CXR done early AM Patient Status: AOX4, arousable Diet: regular diet Pending Orders: needs urine specimen Pending Results/Labs: CXR Pending MD notification: Dr. Larkin Latest Vital Signs: Temperature 97.4 , Pulse 59 , B/P 135 /79 , Respiratory Rate 22 , O2 SAT 93 , Nasal Cannula, O2 Flow Rate 2.0 . Vital Sign Comment: stable EKG Rhythm: SB, AFIB/A FLUTTER Rhythm change?: Y Notified?: Y -Dr. Trae CANALES Response: Message left await call Latest Romo Fall Score: 30 Fall Risk: Medium Risk Safety Measures: Call light Within Reach, Bed Alarm Zone 1, Side Rails Side Rails x2, Bed position Low and Locked. Fall Precautions: Yellow Socks Yellow Gown Patient Fall Education Report given to MAURICIO Hermosillo.
--- NOTE | 2020-07-09 07:22 | NUR ---
NURSE NOTES: Received report from Jing/RN. Pt in bed, sleeping in semi-fowlers position. On 2L nasal cannula, no distress or SOB noted. 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 IV on right AC 20G, SL patent and clean. Bed in the lowest position and locked. Call light within reach, encouraged to use it when needed. Side rails up x2. Will continue plan of care.
[2020-07-09 08:00] VITALS: BP 137/79
[2020-07-09] MEDS: hydroCHLOROthiazide 12.5mg TAB ORAL SCH (08:29)
[2020-07-09] MEDS: Losartan 50mg tab ORAL SCH (08:30)
[2020-07-09 08:33] LABS: APPEARANCE,URINE CLEAR; BILIRUBIN, URINE NEGATIVE (NEGATIVE); GLUCOSE, URINE (UA) NEGATIVE (NEGATIVE); KETONES,URINE 1+ (NEGATIVE); LEUKOCYTE ESTERASE ,URINE 1+ (NEGATIVE); NITRITE,URINE NEGATIVE (NEGATIVE); PH,URINE 5 (4.5-8.0); PROTEIN,URINE 1+ (NEGATIVE); UROBILINOGEN,URINE NORMAL MG/DL (0.0-1.0)
[2020-07-09 08:47] LABS: COLOR,URINE YELLOW
[2020-07-09] MEDS ORDERED: Heparin 5000 units/ml inj SUBQ SCH (09:00)
[2020-07-09 12:00] VITALS: BP 108/64
--- NOTE | 2020-07-09 12:04 | Diagnostic Imaging Report ---
Indication: Shortness of breath Technique: XRAY Chest 1v Comparison: 07/08/2020 Findings: Heart size and mediastinal contours are stable. Aortic atherosclerotic ossifications again noted. Improved aeration with decreased perihilar opacities and decreased opacity at the medial right base. No new focal airspace consolidation. No pleural effusion or pneumothorax. Impression: Improving aeration with decreased perihilar infiltrates.
[2020-07-09] MEDS: cefTRIAXone 1 GM in D5W 55 ML IVPB SCH (12:23)
--- NOTE | 2020-07-09 12:56 | Cardiology Report ---
APPROVED REPORT EKG Measurement Heart [id number] AR [id number] [id number] <Conclusion> Sinus bradycardia ST & T wave abnormality, consider inferior ischemia Abnormal ECG
[2020-07-09] MEDS: Azithromycin 500 MG in D5W 275 ML IV SCH (13:32)
--- NOTE | 2020-07-09 15:08 | NUR ---
NURSE NOTES: Called Dr Larkin to let him know the patient's heart had two pauses today one of 4.04 secs and the second one of 2.44 secs. No new orders at this moment.
--- NOTE | 2020-07-09 15:51 | NUR ---
CASE MANAGEMENT:REVIEW 75 YR OLD FEMALE WALKED IN TO ER CC: SOB SI: BRADYCARDIA. PNEUMONIA. AC/CHR CHF 98.3 52 20 112/70 95% ON RA BUN+21 BNP+3815 IS: IV AZITHROMYCIN IV DECADRON IV ROCEPHIN CHEST XRAY : TO TELEMETRY DCP: FROM HOME
[2020-07-09 16:00] VITALS: BP 114/69
--- NOTE | 2020-07-09 17:43 | Cardiology Progress Note ---
Subjective DATE OF SERVICE: Jul 09, 2020 No SOB Denies cough or congestion Monitor: sinus bradycardia with 1st degree block and pauses above 4 seconds Objective Last 24 Hour Vital Signs Date Time Temp Pulse Resp B/P (MAP) Pulse Ox O2 Delivery O2 Flow Rate FiO2 07/09/20 16:00 96.8 97 20 114/69 (84) 98 07/09/20 12:00 96.1 88 20 108/64 (79) 95 07/09/20 12:00 85 07/09/20 09:00 Nasal Cannula 2.0 07/09/20 08:30 137/79 07/09/20 08:30 92 137/79 07/09/20 08:00 96.8 92 20 137/79 (98) 96 07/09/20 08:00 96 07/09/20 04:00 59 07/09/20 04:00 97.4 99 22 135/79 (97) 93 07/09/20 02:21 70 18 99 Nasal Cannula 2.0 28 71 18 96 07/09/20 00:00 75 07/09/20 00:00 97.6 66 20 130/87 (101) 96 07/08/20 21:46 Nasal Cannula 2.0 07/08/20 20:18 97 Nasal Cannula 2.0 28 07/08/20 20:00 63 07/08/20 20:00 97.4 70 20 145/80 (101) 93 07/08/20 18:54 98.1 62 18 137/85 (102) 95 07/08/20 18:53 67 07/08/20 18:20 98.3 88 18 123/60 99 Nasal Cannula 2.0 ROS: unchanged from 07/08/20 HEENT: normal ENT inspection LUNGS: bilateral rhonchi CARDIAC: normal S1 and S2, bradycardia ABDOMEN: normal bowel sounds, non tender, soft, no organomegaly EXTREMITIES: normal range of motion, no calf tenderness, No edema Laboratory Tests Test 07/09/20 08:08 Urine Color Yellow Urine Appearance Clear Urine pH 5 (4.5-8.0) Urine Specific [place] 1.020 (1.005-1.035) Urine Protein 1+ (NEGATIVE) H Urine Glucose (UA) Negative (NEGATIVE) Urine Ketones 1+ (NEGATIVE) H Urine Blood Negative (NEGATIVE) Urine Nitrite Negative (NEGATIVE) Urine Bilirubin Negative (NEGATIVE) Urine Urobilinogen Normal MG/DL (0.0-1.0) Urine Leukocyte Esterase 1+ (NEGATIVE) H Urine RBC 0-2 /HPF (0 - 2) Urine WBC 2-4 /HPF (0 - 2) Urine Squamous Epithelial Cells Few /LPF (NONE/OCC) Urine Bacteria Few /HPF (NONE) Microbiology Date/Time Source Procedure Growth Status 07/08/20 14:02 Nasopharynx SARS-CoV-2 RdRp Gene Assay - Final Complete Assessment/Plan Assessment/Plan 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 Continuous cardiac monitoring Aguilar Larkin MD Jul 09, 2020 17:43
--- NOTE | 2020-07-09 18:45 | Consultation ---
DATE OF CONSULTATION: 07/09/2020 PULMONARY CONSULTATION HISTORY OF PRESENT ILLNESS: This is a 75-year-old female with a history of seizure disorder, hypertension, previous CVA, hyperlipidemia, who was brought to the hospital with shortness of breath. She reports cough and wheezing. She also reported diarrhea. The patient is unaware of any recent COVID contacts and she lives alone at home. The patient was seen, admitted to the hospital due to her condition. She underwent a rapid gene assay for COVID, which was negative for COVID-19. She underwent a chest x-ray, which shows bilateral perihilar infiltrates. At this time, the patient states she is feeling better, saturating 95% on 2 L oxygen. PAST MEDICAL HISTORY: Notable for hypertension, hyperlipidemia, seizure disorder. HOME MEDICATIONS: Include amlodipine, Plavix, losartan, hydrochlorothiazide, Keppra, Zocor. ALLERGIES: None reported. REVIEW OF SYSTEMS: Unreliable. PHYSICAL EXAMINATION: GENERAL: A 75-year-old female. HEENT: Unremarkable. CHEST: Clear breath sounds bilaterally. ABDOMEN: Soft. EXTREMITIES: There is no edema. NEUROLOGIC: Nonfocal. VITAL SIGNS: Blood pressure 114/60, heart rate 94, respirations 20, O2 sat 95% on 2 L oxygen. LABORATORY DATA: Lab testing shows normal CBC and BMP. X-ray chest discussed above shows bilateral patchy infiltrates in the perihilar region. Her initial COVID testing is negative. IMPRESSION: 1. Pneumonia. 2. Mild hypoxemia. 3. Hypertension. 4. Seizure disorder. DISCUSSION: I will repeat COVID-19 PCR. Continue current medications and care. She is on azithromycin, with which I concur. DVT prophylaxis. We will follow carefully. Avila Roberts M.D. DR: LYNN JOB#: [id number] CC:
--- NOTE | 2020-07-09 19:27 | Consultation ---
History of Present Illness General Date patient seen: Jul 09, 2020 Chief Complaint: Dyspnea/Resp distress Referring physician: Dr Larkin Reason for Consultation: Bradycardia Present Illness HPI Mrs. Fontaine is a 75 year old woman with HTN, previous CVA ( 1998, residual mild aphasia and ataxia), and seizures, who was admitted on 07/08 with shortness of breath, wheezing and nonproductive cough. XR showed perihilar infiltrates. She has been admitted for treatment of pneumonia and to r/o COVID infection (COVID rapid is negative and PCR pending). She has been noted to have intermittent AF on telemetry, with post conversion pauses over 4 seconds while awake. Today, she had a 4 sec pause, followed by 2 beats, then a 2.4 sec pause, and anodhter similar episode with 3.8 second followed by 2.4 sec pauses. She reports that she has had 2 syncopal episodes last year - one last summer at the [facility], and another while standing in her kitchen. It does not appear that she had previous w/u for this. She has been noted to have intermittent sinus bradycardia in past. Cardiac w/u has included ECHO , per notes, done 1 month ago, showing nl LV systolic function and LVH. Allergies: Coded Allergies: No Known Allergies (Unverified , 04/15/17) Medication History Scheduled Amlodipine Besylate* (Amlodipine Besylate*), 10 MG ORAL DAILY, (Reported) Clopidogrel Bisulfate* (Plavix*), 75 MG ORAL DAILY, (Reported) Levetiracetam (Keppra), 500 MG ORAL BID, (Reported) Losartan/Hydrochlorothiazide (Losartan-Hctz 100-12.5 Mg Tab), 1 TAB ORAL DAILY, (Reported) Simvastatin (Zocor), 20 MG ORAL BEDTIME, (Reported) Medications Narrative see list Patient History History Provided By: Patient, Medical Record, PMD Healthcare decision maker N Resuscitation status full code Advanced Directive on File Patient History Narrative Past med hx: HTN, HLD, previous CVA Past Medical/Surgical History Past Medical/Surgical History: (1) Syncope (2) Suspected 2019-nCoV infection (3) Bradycardia (4) Dyspnea Review of Systems All Other Systems: negative except mentioned in HPI Physical Exam General Appearance: WD/WN, obese, alert oriented x3, other Lines, tubes and drains: peripheral HEENT: normocephalic, atraumatic, PERRL Neck: supple Respiratory/Chest: other - decreased BS bilaterally Cardiovascular/Chest: no gallop/murmur, no JVD, arrhythmia, irregularly irregular Abdomen: normal bowel sounds, non tender, soft Extremities: no edema Skin Exam: warm/dry, no diaphoresis Neurologic: alert, oriented x 3, other - no gross focal motor deficit. Gait not tested Last 24 Hour Vital Signs Date Time Temp Pulse Resp B/P (MAP) Pulse Ox O2 Delivery O2 Flow Rate FiO2 07/09/20 16:00 96.8 97 20 114/69 (84) 98 07/09/20 16:00 96 07/09/20 12:00 96.1 88 20 108/64 (79) 95 07/09/20 12:00 85 07/09/20 09:00 Nasal Cannula 2.0 07/09/20 08:30 137/79 07/09/20 08:30 92 137/79 07/09/20 08:00 96.8 92 20 137/79 (98) 96 07/09/20 08:00 96 07/09/20 04:00 59 07/09/20 04:00 97.4 99 22 135/79 (97) 93 07/09/20 02:21 70 18 99 Nasal Cannula 2.0 28 71 18 96 07/09/20 00:00 75 07/09/20 00:00 97.6 66 20 130/87 (101) 96 07/08/20 21:46 Nasal Cannula 2.0 07/08/20 20:18 97 Nasal Cannula 2.0 28 07/08/20 20:00 63 07/08/20 20:00 97.4 70 20 145/80 (101) 93 Intake and Output 07/08/20 07/09/20 19:00 07:00 Intake Total 0 ml Balance 0 ml Intake Oral 0 ml # Voids 3 # Bowel Movements 1 Laboratory Tests Test 07/09/20 08:08 Urine Color Yellow Urine Appearance Clear Urine pH 5 (4.5-8.0) Urine Specific [place] 1.020 (1.005-1.035) Urine Protein 1+ (NEGATIVE) H Urine Glucose (UA) Negative (NEGATIVE) Urine Ketones 1+ (NEGATIVE) H Urine Blood Negative (NEGATIVE) Urine Nitrite Negative (NEGATIVE) Urine Bilirubin Negative (NEGATIVE) Urine Urobilinogen Normal MG/DL (0.0-1.0) Urine Leukocyte Esterase 1+ (NEGATIVE) H Urine RBC 0-2 /HPF (0 - 2) Urine WBC 2-4 /HPF (0 - 2) Urine Squamous Epithelial Cells Few /LPF (NONE/OCC) Urine Bacteria Few /HPF (NONE) COVID rapid negative Height (Feet): 5 Height (Inches): 4.00 Weight (Pounds): 200 Medications Current Medications Medications (Trade) Dose Ordered Sig/Izabela Route PRN Reason Start Time Stop Time Status Last Admin Dose Admin Albuterol/ Ipratropium (Albuterol/ Ipratropium) 3 ml Q6HRT HHN 07/09/20 01:00 07/14/20 00:59 07/09/20 02:20 Amlodipine Besylate (Norvasc) 10 mg DAILY ORAL 07/09/20 09:00 08/08/20 08:59 07/09/20 08:30 Atorvastatin Calcium (Lipitor) 10 mg BEDTIME ORAL 07/09/20 21:00 10/07/20 20:59 Azithromycin 500 mg/Dextrose 275 ml @ 275 mls/hr Q24HRS IV 07/09/20 13:00 07/15/20 13:59 07/09/20 13:32 Ceftriaxone Sodium 1 gm/ Dextrose 55 ml @ 110 mls/hr Q24H IVPB 07/09/20 13:00 07/16/20 12:59 07/09/20 12:23 Clopidogrel Bisulfate (Plavix) 75 mg DAILY ORAL 07/09/20 09:00 08/08/20 08:59 07/09/20 08:30 Heparin Sodium (Porcine) (Heparin 5000 units/ml) 5,000 units EVERY 12 HOURS SUBQ 07/09/20 09:00 08/23/20 08:59 07/09/20 08:31 Hydrochlorothiazide (Hydrodiuril) 12.5 mg DAILY ORAL 07/09/20 09:00 08/08/20 08:59 07/09/20 08:29 Levetiracetam (Keppra) 500 mg Q12HR ORAL 07/09/20 09:00 08/23/20 08:59 07/09/20 08:30 Losartan Potassium (Cozaar) 50 mg DAILY ORAL 07/09/20 09:00 08/08/20 08:59 07/09/20 08:30 Objective Narrative EKG ( adm) SB 48 bpm. T wave flattening diffusely tele :AF w/ intermittent RVR to > 150s, and long post-conversion pauses of up to 4 seconds. Assessment/Plan Problem List: (1) Hypertension ICD Codes: I10 - Essential (primary) hypertension SNOMED: 24406285 (2) Sick sinus syndrome ICD Codes: I49.5 - Sick sinus syndrome SNOMED: 23390557 (3) Paroxysmal A-fib ICD Codes: I48.0 - Paroxysmal atrial fibrillation SNOMED: 467623679 (4) Suspected 2019-nCoV infection ICD Codes: Z20.822 - Contact with and (suspected) exposure to COVID-19 SNOMED: 311760584 (5) Bradycardia ICD Codes: R00.1 - Bradycardia, unspecified SNOMED: 29010597 (6) Syncope ICD Codes: R55 - Syncope and collapse SNOMED: 333581259, 6925974 Qualifiers: Qualified Codes: R55 - Syncope and collapse (7) Dyspnea ICD Codes: R06.00 - Dyspnea, unspecified SNOMED: 868295448 Assessment/Plan: Mrs. Fontaine is a 75 year old woman with HTN, previous CVA, syncope, seizures, and hx of sinus bradycardia who is admitted with dyspnea, wheezing, cough and weakness, being ruled out for COVID infection. On adm, HR 48 bpm - sinus bradycardia. She is noted to have PAF on telemetry, not associated w/ palpitations or other symptoms, but with prolonged post- conversion pauses over 4 seconds. She has had syncope in the past, but details / cause not clear. She has symptomatic sinus node disease, with no reversible cause identified ( no meds, thyroid disease, ischemia ) I would recommend permanent dual chamber pacemaker , once ID status cleared. This was discussed w/ Mrs. Fontaine, who is agreeable w/ plan. Would also start anticoagulation w/ iv heparin or sc lovenox for CVA prevention in AF. After pacemaker is placed, would start b donnie or antiarrhythmic agent, depending on pt's course. Will discuss. Beatriz Brice MD Jul 09, 2020 19:27
--- NOTE | 2020-07-09 19:30 | NUR ---
NURSE NOTES: Received report from Jaimee RN; AOX4, noted laying in bed watching TV, in no acute distress; denies any pain nor discomfort; will carefully monitor pt d/t episodes of asystole 4.04 secs and 2.44 secs during AM shift; on O2 2L/min via NC, in no acute distress; will f/u PCR COVID-19 test results; PUI for COVID-19 pending PCR COVID-19 results; ambulatory to the bathroom; encouraged to call for assistance; Peripheral IV site on R AC 20 gauge, saline locked; intact and patent, secured; call light within reach; bed locked and in low position; side rails x 2; will continue to monitor.
--- NOTE | 2020-07-09 19:32 | NUR ---
NURSE HAND-OFF REPORT: Important Events on Shift:patient had two pauses in her heart 4.04 secs and 2.44 secs, Dr Larkin is aware. Patient Status: Stable Diet: Regular Pending Orders: Pending Results/Labs: Pending MD notification: Latest Vital Signs: Temperature 96.8 , Pulse 96 , B/P 114 /69 , Respiratory Rate 20 , O2 SAT 98 , Nasal Cannula, O2 Flow Rate 2.0 . Vital Sign Comment: Stable EKG Rhythm: A-fib/A-flutter Rhythm change?: N MD Notified?: Y -Dr. Trae CANALES Response: Message left await call Latest Romo Fall Score: 30 Fall Risk: Medium Risk Safety Measures: Call light Within Reach, Bed Alarm Zone 1, Side Rails Side Rails x2, Bed position Low and Locked. Fall Precautions: Yellow Socks Yellow Gown Patient Fall Education Report given to Jing/RN.
[2020-07-09 20:00] VITALS: BP 108/76
[2020-07-09] MEDS: Enoxaparin 100mg Inj SUBQ SCH (20:47)
[2020-07-10] VITALS: BP 112/70
[2020-07-10] MEDS: Albuterol/Ipratropium 3ml neb HHN SCH ×4 (00:57→19:43)
[2020-07-10 04:00] VITALS: BP 125/78
[2020-07-10 06:11] LABS: BASOPHILS % (AUTO) 0.9 % (0.0-2.0); HEMATOCRIT 38.6 % (37.0-47.0); HEMOGLOBIN 12.9 G/DL (12.0-16.0); LYMPHOCYTES % (AUTO) 14.2 % (20.0-45.0); MEAN CORPUSCULAR VOLUME 100 FL (80-99); MONOCYTES % (AUTO) 8.6 % (1.0-10.0); NEUTROPHILS % (AUTO) 76.3 % (45.0-75.0); PLATELET COUNT 195 K/UL (150-450); RED BLOOD COUNT 3.88 M/UL (4.20-5.40); RED CELL DISTRIBUTION WIDTH 16.1 % (11.6-14.8); WHITE BLOOD COUNT 10.8 K/UL (4.8-10.8)
--- NOTE | 2020-07-10 07:10 | NUR ---
NURSE HAND-OFF REPORT: Important Events on Shift: N/A Patient Status: aox4, stable Diet: regular diet, thin liquids Pending Orders: N Pending Results/Labs: AM labs, PCR COVID-19 Pending MD notification: N Latest Vital Signs: Temperature 97.8 , Pulse 95 , B/P 125 /78 , Respiratory Rate 18 , O2 SAT 97 , Nasal Cannula, O2 Flow Rate 2.0 . Vital Sign Comment: within baseline EKG Rhythm: afib/aflutter Rhythm change?: N Notified?: N Response: Latest Romo Fall Score: 30 Fall Risk: Medium Risk Safety Measures: Call light Within Reach, Bed Alarm Zone 1, Side Rails Side Rails x2, Bed position Low and Locked. Fall Precautions: Yellow Socks Yellow Gown Patient Fall Education Report given to MAURICIO Johnston.
--- NOTE | 2020-07-10 07:47 | NUR ---
NURSE NOTES: Patient seen in bed in high fowlers position eating breakfast and watching Television. The patient does not complain of any pain and is under no acute signs of distress. The patient is on 2L nasal cannula and oxygen saturation within normal limits. The patient has a R 20G AC that is clean, patent and intact and saline locked. The patients bed is in lowest position, locked, side rails x2 and call light within reach. All patients request have been met at this time. Patient education on pressing call light for any further needs.
[2020-07-10 08:00] VITALS: BP 130/83
[2020-07-10] MEDS: Losartan 50mg tab ORAL SCH (10:14)
[2020-07-10] MEDS: hydroCHLOROthiazide 12.5mg TAB ORAL SCH (10:14)
[2020-07-10] MEDS ORDERED: Tubing IV Secondary IV ONE (10:16)
[2020-07-10] MEDS ORDERED: NS 275ml ONE (10:16)
[2020-07-10] MEDS: Enoxaparin 100mg Inj SUBQ SCH ×2 (10:16→20:55)
[2020-07-10] MEDS ORDERED: METOPROLOL SUCC50 MG ORAL (10:18)
[2020-07-10] MEDS ORDERED: VOLTAREN ARTHRI20 GM TP (10:18)
[2020-07-10] MEDS ORDERED: ELIQUIS5 MG ORAL (10:18)
--- NOTE | 2020-07-10 10:22 | Pulmonology Progress Note ---
Subjective ROS Limited/Unobtainable: No Interval Events: None new Constitutional: Reports: no symptoms HEENT: Repors: no symptoms Respiratory: Reports: no symptoms Cardiovascular: Reports: no symptoms Gastrointestinal/Abdominal: Reports: no symptoms Allergies: Coded Allergies: No Known Allergies (Unverified , 04/15/17) Objective Last 24 Hour Vital Signs Date Time Temp Pulse Resp B/P (MAP) Pulse Ox O2 Delivery O2 Flow Rate FiO2 07/10/20 10:14 130/83 07/10/20 10:12 85 130/83 07/10/20 07:28 95 18 97 Nasal Cannula 2.0 28 07/10/20 07:27 97 Nasal Cannula 2.0 28 07/10/20 04:00 97.8 80 20 125/78 (94) 97 07/10/20 04:00 100 07/10/20 00:57 Nasal Cannula 2.0 28 07/10/20 00:00 97.7 101 20 112/70 (84) 100 07/10/20 00:00 100 07/09/20 21:00 Nasal Cannula 2.0 07/09/20 20:00 97.9 94 20 108/76 (87) 100 07/09/20 20:00 109 07/09/20 19:40 98 Nasal Cannula 2.0 28 07/09/20 19:40 Nasal Cannula 2.0 28 07/09/20 19:40 91 18 98 Nasal Cannula 2.0 28 07/09/20 16:00 96.8 97 20 114/69 (84) 98 07/09/20 16:00 96 07/09/20 12:00 96.1 88 20 108/64 (79) 95 07/09/20 12:00 85 Intake and Output 07/09/20 07/10/20 19:00 07:00 Intake Total 600 ml Balance 600 ml Intake Oral 600 ml # Bowel Movements 1 General Appearance: no acute distress HEENT: normocephalic Respiratory: chest wall non-tender, normal breath sounds Cardiovascular: normal rate Abdomen: normal bowel sounds Microbiology Date/Time Source Procedure Growth Status 07/08/20 14:02 Nasopharynx SARS-CoV-2 RdRp Gene Assay - Final Complete Laboratory Tests 07/10/20 04:53: White Blood Count 10.8, Red Blood Count 3.88L, Hemoglobin 12.9, Hematocrit 38.6, Mean Corpuscular Volume 100H, Mean Corpuscular Hemoglobin 33.3H, Mean Corpuscular Hemoglobin Concent 33.4, Red Cell Distribution Width 16.1H, Platelet Count 195, Mean Platelet Volume 8.7, Neutrophils (%) (Auto) 76.3H, Lymphocytes (%) (Auto) 14.2L, Monocytes (%) (Auto) 8.6, Eosinophils (%) (Auto) 0.0, Basophils (%) (Auto) 0.9, Thyroid Stimulating Hormone (TSH) 0.401, Free Thyroxine 0.93 Current Medications Medications (Trade) Dose Ordered Sig/Izabela Route PRN Reason Start Time Stop Time Status Last Admin Dose Admin Albuterol/ Ipratropium (Albuterol/ Ipratropium) 3 ml Q6HRT HHN 07/09/20 01:00 07/14/20 00:59 07/09/20 02:20 Amlodipine Besylate (Norvasc) 10 mg DAILY ORAL 07/09/20 09:00 08/08/20 08:59 07/10/20 10:12 Atorvastatin Calcium (Lipitor) 10 mg BEDTIME ORAL 07/09/20 21:00 10/07/20 20:59 07/09/20 20:47 Azithromycin 500 mg/Dextrose 275 ml @ 275 mls/hr Q24HRS IV 07/09/20 13:00 07/15/20 13:59 07/09/20 13:32 Ceftriaxone Sodium 1 gm/ Dextrose 55 ml @ 110 mls/hr Q24H IVPB 07/09/20 13:00 07/16/20 12:59 07/09/20 12:23 Clopidogrel Bisulfate (Plavix) 75 mg DAILY ORAL 07/09/20 09:00 08/08/20 08:59 07/10/20 10:14 Enoxaparin Sodium (Lovenox) 90 mg EVERY 12 HOURS SUBQ 07/09/20 21:00 10/07/20 20:59 07/10/20 10:16 Hydrochlorothiazide (Hydrodiuril) 12.5 mg DAILY ORAL 07/09/20 09:00 08/08/20 08:59 07/10/20 10:14 Levetiracetam (Keppra) 500 mg Q12HR ORAL 07/09/20 09:00 08/23/20 08:59 07/10/20 10:14 Losartan Potassium (Cozaar) 50 mg DAILY ORAL 07/09/20 09:00 08/08/20 08:59 07/10/20 10:14 Assessment/Plan Assessment/Plan IMPRESSION: 1. Pneumonia. 2. Mild hypoxemia. 3. Hypertension. 4. Seizure disorder. DISCUSSION: COVID-19 PCR Pending. Rapid test is negative Continue current medications and care. She is on azithromycin, with which I concur. DVT prophylaxis. Contd. Supplement Oxygen On 2L/min Sat 94% CXR 07/09/2020 Improving aeration with decreased perihilar infiltrates. We will follow carefully. Above plan discussed with supervising physician Sy Syed NP Jul 10, 2020 10:22 Avila Roberts MD Jul 10, 2020 15:09
[2020-07-10 12:00] VITALS: BP 123/83
[2020-07-10] MEDS: cefTRIAXone 1 GM in D5W 55 ML IVPB SCH (13:05)
[2020-07-10] MEDS: Azithromycin 500 MG in D5W 275 ML IV SCH (13:51)
[2020-07-10 16:00] VITALS: BP 129/83
--- NOTE | 2020-07-10 17:19 | Cardiology Progress Note ---
Subjective DATE OF SERVICE: Jul 10, 2020 No SOB Denies cough or congestion Monitor: sinus bradycardia with 1st degree block and pauses above 4 seconds Objective Last 24 Hour Vital Signs Date Time Temp Pulse Resp B/P (MAP) Pulse Ox O2 Delivery O2 Flow Rate FiO2 07/10/20 12:00 97.6 83 20 123/83 (96) 100 07/10/20 12:00 98 07/10/20 10:14 130/83 07/10/20 10:12 85 130/83 07/10/20 09:00 Nasal Cannula 2.0 07/10/20 08:00 94 07/10/20 08:00 97.8 85 20 130/83 (99) 100 07/10/20 07:28 95 18 97 Nasal Cannula 2.0 28 07/10/20 07:27 97 Nasal Cannula 2.0 28 07/10/20 04:00 97.8 80 20 125/78 (94) 97 07/10/20 04:00 100 07/10/20 00:57 Nasal Cannula 2.0 28 07/10/20 00:00 97.7 101 20 112/70 (84) 100 07/10/20 00:00 100 07/09/20 21:00 Nasal Cannula 2.0 07/09/20 20:00 97.9 94 20 108/76 (87) 100 07/09/20 20:00 109 07/09/20 19:40 98 Nasal Cannula 2.0 28 07/09/20 19:40 Nasal Cannula 2.0 28 07/09/20 19:40 91 18 98 Nasal Cannula 2.0 28 ROS: unchanged from 07/08/20 HEENT: normal ENT inspection RHYTHM: NSR, SB, other - oYAWA LUNGS: bilateral rhonchi CARDIAC: normal S1 and S2, bradycardia ABDOMEN: normal bowel sounds, non tender, soft, no organomegaly EXTREMITIES: normal range of motion, no calf tenderness, No edema Laboratory Tests Test 07/10/20 04:53 White Blood Count 10.8 K/UL (4.8-10.8) Red Blood Count 3.88 M/UL (4.20-5.40) L Hemoglobin 12.9 G/DL (12.0-16.0) Hematocrit 38.6 % (37.0-47.0) Mean Corpuscular Volume 100 FL (80-99) H Mean Corpuscular Hemoglobin 33.3 PG (27.0-31.0) H Mean Corpuscular Hemoglobin Concent 33.4 G/DL (32.0-36.0) Red Cell Distribution Width 16.1 % (11.6-14.8) H Platelet Count 195 K/UL (150-450) Mean Platelet Volume 8.7 FL (6.5-10.1) Neutrophils (%) (Auto) 76.3 % (45.0-75.0) H Lymphocytes (%) (Auto) 14.2 % (20.0-45.0) L Monocytes (%) (Auto) 8.6 % (1.0-10.0) Eosinophils (%) (Auto) 0.0 % (0.0-3.0) Basophils (%) (Auto) 0.9 % (0.0-2.0) Thyroid Stimulating Hormone (TSH) 0.401 uiU/mL (0.358-3.740) Free Thyroxine 0.93 NG/DL (0.76-1.46) Microbiology Date/Time Source Procedure Growth Status 07/08/20 14:02 Nasopharynx SARS-CoV-2 RdRp Gene Assay - Final Complete Assessment/Plan Assessment/Plan 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 Continuous cardiac monitoring Aguilar Larkin MD Jul 10, 2020 17:19
--- NOTE | 2020-07-10 19:38 | NUR ---
NURSE HAND-OFF REPORT: Important Events on Shift:[Antibiotics, BM, sustained Aflutter aware] Patient Status: [Full Code] Diet: [Regular diet] Pending Orders: [N/A] Pending Results/Labs:[N/A] Pending MD notification:[N/A] Latest Vital Signs: Temperature 99.2 , Pulse 93 , B/P 129 /83 , Respiratory Rate 20 , O2 SAT 96 , Nasal Cannula, O2 Flow Rate 2.0 . Vital Sign Comment: [] EKG Rhythm: afib/aflutter Rhythm change?: N MD Notified?: Darion -Dr. Trae CANALES Response: Message left await call Latest Romo Fall Score: 30 Fall Risk: Medium Risk Safety Measures: Call light Within Reach, Bed Alarm Zone 1, Side Rails Side Rails x2, Bed position Low and Locked. Fall Precautions: Yellow Socks Yellow Gown Patient Fall Education Report given to [MAURICIO Blankenship].
--- NOTE | 2020-07-10 19:40 | NUR ---
NURSE NOTES: The patient is alert and oriented x4 and seem to be cooperative with her care and does not appear to be in any distress at this time.She remained on 2 liters of oxygen via NC with Spo2 @ 96%.The patient has a Right FA 22g IV line that is patent and asymptomatic.The bed in low level, call light within easy reach and siderails up x2. will continue to monitor as indicated.
[2020-07-10 20:00] VITALS: BP 123/72
[2020-07-11] VITALS: BP 100/73
[2020-07-11] MEDS: Albuterol/Ipratropium 3ml neb HHN SCH ×4 (00:47→19:25)
[2020-07-11 04:00] VITALS: BP 125/85
--- NOTE | 2020-07-11 07:11 | NUR ---
NURSE HAND-OFF REPORT: Important Events on Shift:Dialysis was cdone yesterday 2 liters of fluids out Patient Status: Diet: Pending Orders: Pending Results/Labs: Pending MD notification: Latest Vital Signs: Temperature 98.5 , Pulse 98 , B/P 125 /85 , Respiratory Rate 18 , O2 SAT 98 , Nasal Cannula, O2 Flow Rate 2.0 . Vital Sign Comment: EKG Rhythm: afib/aflutter Rhythm change?: N MD Notified?: Darion Larkin MD Response: Message left await call Latest Romo Fall Score: 30 Fall Risk: Medium Risk Safety Measures: Call light Within Reach, Bed Alarm Zone 1, Side Rails Side Rails x2, Bed position Low and Locked. Fall Precautions: Yellow Socks Yellow Gown Patient Fall Education Report given to .
--- NOTE | 2020-07-11 07:49 | NUR ---
NURSE NOTES: pt in bed, in lowest position having breakfast. pt on bus monitor no signs of cardiac or respiratory distress at this time. she is on 2L NC. Call light within reach, bed locked and in lowest position. Will continue to monitor pt.
[2020-07-11 08:26] LABS: BASOPHILS % (AUTO) 1.1 % (0.0-2.0); EOSINOPHILS % (AUTO) 2.1 % (0.0-3.0); HEMATOCRIT 39.2 % (37.0-47.0); HEMOGLOBIN 12.5 G/DL (12.0-16.0); LYMPHOCYTES % (AUTO) 40.8 % (20.0-45.0); MEAN CORPUSCULAR VOLUME 104 FL (80-99); MONOCYTES % (AUTO) 11.6 % (1.0-10.0); NEUTROPHILS % (AUTO) 44.4 % (45.0-75.0); PLATELET COUNT 184 K/UL (150-450); RED BLOOD COUNT 3.77 M/UL (4.20-5.40); RED CELL DISTRIBUTION WIDTH 14.9 % (11.6-14.8); WHITE BLOOD COUNT 5.4 K/UL (4.8-10.8)
[2020-07-11 08:38] LABS: ALBUMIN 2.7 G/DL (3.4-5.0); ALBUMIN/GLOBULIN RATIO 0.7 (1.0-2.7); BILIRUBIN,TOTAL 0.5 MG/DL (0.2-1.0); CALCIUM 8.8 MG/DL (8.5-10.1); CREATININE 1.3 MG/DL (0.55-1.30); POTASSIUM 3.4 MMOL/L (3.5-5.1)
[2020-07-11 08:45] VITALS: BP 112/70
[2020-07-11] MEDS: Losartan 50mg tab ORAL SCH (09:00)
[2020-07-11] MEDS: hydroCHLOROthiazide 12.5mg TAB ORAL SCH (10:31)
[2020-07-11] MEDS: Enoxaparin 100mg Inj SUBQ SCH ×2 (10:33→21:39)
[2020-07-11 12:00] VITALS: BP 118/75
--- NOTE | 2020-07-11 12:39 | Pulmonology Progress Note ---
Subjective ROS Limited/Unobtainable: No Interval Events: None new Constitutional: Reports: no symptoms HEENT: Repors: no symptoms Respiratory: Reports: no symptoms Cardiovascular: Reports: no symptoms Gastrointestinal/Abdominal: Reports: no symptoms Allergies: Coded Allergies: No Known Allergies (Unverified , 04/15/17) Objective Last 24 Hour Vital Signs Date Time Temp Pulse Resp B/P (MAP) Pulse Ox O2 Delivery O2 Flow Rate FiO2 07/11/20 10:31 73 112/70 07/11/20 09:00 Nasal Cannula 2.0 07/11/20 09:00 112/70 07/11/20 08:45 97.9 73 16 112/70 (84) 100 07/11/20 08:00 102 07/11/20 07:49 75 16 99 2.0 28 07/11/20 07:49 99 Nasal Cannula 2.0 28 07/11/20 04:00 98.5 98 18 125/85 (98) 98 07/11/20 04:00 102 07/11/20 00:00 98.9 76 20 100/73 (82) 96 07/11/20 00:00 81 07/10/20 21:00 Nasal Cannula 2.0 07/10/20 20:00 96 07/10/20 20:00 97.9 76 18 123/72 (89) 98 07/10/20 19:43 96 Nasal Cannula 2.0 28 07/10/20 16:00 93 07/10/20 16:00 99.2 107 20 129/83 (98) 96 Intake and Output 07/10/20 07/11/20 19:00 07:00 Intake Total 500 ml 120 ml Balance 500 ml 120 ml Intake Oral 500 ml 120 ml # Voids 5 4 # Bowel Movements 1 General Appearance: no acute distress HEENT: normocephalic Respiratory: chest wall non-tender, normal breath sounds Cardiovascular: normal rate Abdomen: normal bowel sounds Microbiology Date/Time Source Procedure Growth Status 07/09/20 05:30 Nasopharynx Coronavirus COVID-19 PCR (BALJINDER) - Final Complete 07/08/20 14:02 Nasopharynx SARS-CoV-2 RdRp Gene Assay - Final Complete 07/08/20 14:02 Blood Blood Culture - Preliminary NO GROWTH AFTER 48 HOURS Resulted 07/08/20 13:47 Blood Blood Culture - Preliminary NO GROWTH AFTER 48 HOURS Resulted Laboratory Tests 07/11/20 06:58: White Blood Count 5.4, Red Blood Count 3.77L, Hemoglobin 12.5, Hematocrit 39.2, Mean Corpuscular Volume 104H, Mean Corpuscular Hemoglobin 33.1H, Mean Corpuscular Hemoglobin Concent 31.8L, Red Cell Distribution Width 14.9H, Platelet Count 184, Mean Platelet Volume 10.6H, Neutrophils (%) (Auto) 44.4L, L ymphocytes (%) (Auto) 40.8, Monocytes (%) (Auto) 11.6H, Eosinophils (%) (Auto) 2.1, Basophils (%) (Auto) 1.1, Sodium Level 144, Potassium Level 3.4L, Chloride Level 108H, Carbon Dioxide Level 28, Anion Gap 8, Blood Urea Nitrogen 18, Creatinine 1.3, Estimat Glomerular Filtration Rate 48.6, Glucose Level 97, Calcium Level 8.8, Magnesium Level 1.7L, Total Bilirubin 0.5, Aspartate Amino Transf (AST/SGOT) 19, Alanine Aminotransferase (ALT/SGPT) 19, Alkaline Phosphatase 88, Pro-B-Type Natriuretic Peptide 1972H, Total Protein 6.4, Albumin 2.7L, Globulin 3.7, Albumin/Globulin Ratio 0.7L Current Medications Medications (Trade) Dose Ordered Sig/Izabela Route PRN Reason Start Time Stop Time Status Last Admin Dose Admin Albuterol/ Ipratropium (Albuterol/ Ipratropium) 3 ml Q6HRT HHN 07/09/20 01:00 07/14/20 00:59 07/09/20 02:20 Amlodipine Besylate (Norvasc) 10 mg DAILY ORAL 07/09/20 09:00 08/08/20 08:59 07/10/20 10:12 Atorvastatin Calcium (Lipitor) 10 mg BEDTIME ORAL 07/09/20 21:00 10/07/20 20:59 07/10/20 20:54 Azithromycin 500 mg/Dextrose 275 ml @ 275 mls/hr Q24HRS IV 07/09/20 13:00 07/15/20 13:59 07/10/20 13:51 Ceftriaxone Sodium 1 gm/ Dextrose 55 ml @ 110 mls/hr Q24H IVPB 07/09/20 13:00 07/16/20 12:59 07/10/20 13:05 Clopidogrel Bisulfate (Plavix) 75 mg DAILY ORAL 07/09/20 09:00 08/08/20 08:59 07/11/20 10:27 Enoxaparin Sodium (Lovenox) 90 mg EVERY 12 HOURS SUBQ 07/09/20 21:00 10/07/20 20:59 07/11/20 10:33 Hydrochlorothiazide (Hydrodiuril) 12.5 mg DAILY ORAL 07/09/20 09:00 08/08/20 08:59 07/10/20 10:14 Levetiracetam (Keppra) 500 mg Q12HR ORAL 07/09/20 09:00 08/23/20 08:59 07/11/20 10:28 Losartan Potassium (Cozaar) 50 mg DAILY ORAL 07/09/20 09:00 08/08/20 08:59 07/10/20 10:14 Assessment/Plan Assessment/Plan IMPRESSION: 1. Pneumonia. 2. Mild hypoxemia. 3. Hypertension. 4. Seizure disorder. DISCUSSION: COVID-19 PCR Pending. Continue current medications and care. She is on azithromycin, with which I concur. DVT prophylaxis. Contd. Supplement Oxygen On 2L/min Sat 98% CXR 07/09/2020 Improving aeration with decreased perihilar infiltrates. We will follow carefully. Above plan discussed with supervising physician Sy Syed NP Jul 11, 2020 12:39
[2020-07-11] MEDS: cefTRIAXone 1 GM in D5W 55 ML IVPB SCH (13:54)
[2020-07-11] MEDS: Azithromycin 500 MG in D5W 275 ML IV SCH (14:07)
[2020-07-11 16:00] VITALS: BP 116/61
--- NOTE | 2020-07-11 19:18 | NUR ---
NURSE HAND-OFF REPORT: Important Events on Shift:[]pt AOx4, in stable condition Patient Status: [] full code Diet: []Regular Pending Orders: [] Pending Results/Labs:[] Pending MD notification:[] Latest Vital Signs: Temperature 96.9 , Pulse 100 , B/P 116 /61 , Respiratory Rate 16 , O2 SAT 100 , Nasal Cannula, O2 Flow Rate 2.0 . Vital Sign Comment: [] EKG Rhythm: afib Rhythm change?: N MD Notified?: Y -Dr. Trae CANALES Response: Message left await call Latest Romo Fall Score: 30 Fall Risk: Medium Risk Safety Measures: Call light Within Reach, Bed Alarm Zone 1, Side Rails Side Rails x2, Bed position Low and Locked. Fall Precautions: Yellow Socks y Yellow Gown Patient Fall Education Report given to []. Shannon/MAURICIO
--- NOTE | 2020-07-11 19:20 | NUR ---
NURSE NOTES: The patient is alert and oriented x4, Pt is on 2 liters of oxygen via NC with Spo2 @ 96%.The patient has a Right FA 22g IV line that is patent and asymptomatic, saline locked. The bed is locked in lowest position, call light within easy reach and siderails up x2. will continue to monitor. pt receiving breathing treatment at this time.
--- NOTE | 2020-07-11 19:30 | NUR ---
NURSE NOTES: ordered Mg for Mg level of 1.7 (2 g or 2 bags), also K was 3.4, ordered 40 mEq potassium. will admin.
[2020-07-11 20:00] VITALS: BP 114/68
[2020-07-12] VITALS: BP 106/73
--- NOTE | 2020-07-12 00:54 | Cardiology Progress Note ---
Subjective DATE OF SERVICE: Jul 11, 2020 No SOB Denies cough or congestion Monitor: sinus bradycardia with 1st degree block and pauses above 4 seconds CXR (07/09) decreasing infiltrates COVID 19 PCR negative Objective Last 24 Hour Vital Signs Date Time Temp Pulse Resp B/P (MAP) Pulse Ox O2 Delivery O2 Flow Rate FiO2 07/12/20 00:00 97.0 73 16 106/73 (84) 99 07/11/20 23:59 90 07/11/20 21:00 Nasal Cannula 2.0 07/11/20 20:00 96.8 86 16 114/68 (83) 99 07/11/20 20:00 101 07/11/20 19:24 98 Nasal Cannula 2.0 28 07/11/20 19:24 89 18 98 Nasal Cannula 2.0 28 07/11/20 19:22 92 18 100 Nasal Cannula 2.0 28 89 18 98 07/11/20 16:00 100 07/11/20 16:00 96.9 102 16 116/61 (79) 100 07/11/20 13:39 89 16 99 Nasal Cannula 2.0 28 99 18 97 07/11/20 12:00 97.4 98 18 118/75 (89) 100 07/11/20 12:00 102 07/11/20 10:31 73 112/70 07/11/20 09:00 Nasal Cannula 2.0 07/11/20 09:00 112/70 07/11/20 08:45 97.9 73 16 112/70 (84) 100 07/11/20 08:00 102 07/11/20 07:49 75 16 99 2.0 28 07/11/20 07:49 99 Nasal Cannula 2.0 28 07/11/20 04:00 98.5 98 18 125/85 (98) 98 07/11/20 04:00 102 ROS: unchanged from 07/08/20 HEENT: normal ENT inspection RHYTHM: NSR, SB, other - oYAWA LUNGS: bilateral rhonchi CARDIAC: normal S1 and S2, bradycardia ABDOMEN: normal bowel sounds, non tender, soft, no organomegaly EXTREMITIES: normal range of motion, no calf tenderness, No edema Laboratory Tests Test 07/11/20 06:58 White Blood Count 5.4 K/UL (4.8-10.8) Red Blood Count 3.77 M/UL (4.20-5.40) L Hemoglobin 12.5 G/DL (12.0-16.0) Hematocrit 39.2 % (37.0-47.0) Mean Corpuscular Volume 104 FL (80-99) H Mean Corpuscular Hemoglobin 33.1 PG (27.0-31.0) H Mean Corpuscular Hemoglobin Concent 31.8 G/DL (32.0-36.0) L Red Cell Distribution Width 14.9 % (11.6-14.8) H Platelet Count 184 K/UL (150-450) Mean Platelet Volume 10.6 FL (6.5-10.1) H Neutrophils (%) (Auto) 44.4 % (45.0-75.0) L Lymphocytes (%) (Auto) 40.8 % (20.0-45.0) Monocytes (%) (Auto) 11.6 % (1.0-10.0) H Eosinophils (%) (Auto) 2.1 % (0.0-3.0) Basophils (%) (Auto) 1.1 % (0.0-2.0) Sodium Level 144 MMOL/L (136-145) Potassium Level 3.4 MMOL/L (3.5-5.1) L Chloride Level 108 MMOL/L (98-107) H Carbon Dioxide Level 28 MMOL/L (21-32) Anion Gap 8 mmol/L (5-15) Blood Urea Nitrogen 18 mg/dL (7-18) Creatinine 1.3 MG/DL (0.55-1.30) Estimat Glomerular Filtration Rate 48.6 mL/min (>60) Glucose Level 97 MG/DL (74-106) Calcium Level 8.8 MG/DL (8.5-10.1) Magnesium Level 1.7 MG/DL (1.8-2.4) L Total Bilirubin 0.5 MG/DL (0.2-1.0) Aspartate Amino Transf (AST/SGOT) 19 U/L (15-37) Alanine Aminotransferase (ALT/SGPT) 19 U/L (12-78) Alkaline Phosphatase 88 U/L (46-116) Pro-B-Type Natriuretic Peptide 1972 pg/mL (0-125) H Total Protein 6.4 G/DL (6.4-8.2) Albumin 2.7 G/DL (3.4-5.0) L Globulin 3.7 g/dL Albumin/Globulin Ratio 0.7 (1.0-2.7) L Microbiology Date/Time Source Procedure Growth Status 07/09/20 05:30 Nasopharynx Coronavirus COVID-19 PCR ([facility]) - Final Complete Assessment/Plan Assessment/Plan 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 Continuous cardiac monitoring Replace K+/Mg++ Aguilar Larkin MD Jul 12, 2020 00:54
[2020-07-12] MEDS: Albuterol/Ipratropium 3ml neb HHN SCH ×4 (02:36→19:02)
[2020-07-12 04:00] VITALS: BP 114/71
--- NOTE | 2020-07-12 07:09 | NUR ---
NURSE HAND-OFF REPORT: Important Events on Shift:pt AOx4, in stable condition received 2 g magnesium for level Mg 1.7 and 40 meq K for K of 3.4 Patient Status: full code Diet: Regular VSS EKG Rhythm: afib/aflutter Latest Romo Fall Score: 30 Fall Risk: Medium Risk Safety Measures: Call light Within Reach, Bed Alarm Zone 1, Side Rails Side Rails x2, Bed position Low and Locked. Fall Precautions: Yellow Socks y Yellow Gown Patient Fall Education Report given to Chip VANN
[2020-07-12 08:00] VITALS: BP 118/84
--- NOTE | 2020-07-12 08:05 | NUR ---
NURSE NOTES: pt in bed, in lowest position having breakfast. pt. able to verbalize needs, reports no pain. 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 she is on 2L NC. Call light within reach, bed locked and in lowest position. Will continue to monitor pt.
[2020-07-12] MEDS: hydroCHLOROthiazide 12.5mg TAB ORAL SCH (08:52)
[2020-07-12] MEDS: Losartan 50mg tab ORAL SCH (08:52)
[2020-07-12] MEDS: Enoxaparin 100mg Inj SUBQ SCH ×2 (08:55→21:04)
[2020-07-12 11:58] VITALS: BP 116/72
--- NOTE | 2020-07-12 13:07 | Anethesia Preoperative Eval ---
Anesthesia Pre-op PMH/ROS General Date of Evaluation: Jul 12, 2020 Time of Evaluation: 13:21 Anesthesiologist: Juan ASA Score: ASA 3 Mallampati Score Class I : Soft palate, uvula, fauces, pillars visible Class II: Soft palate, uvula, fauces visible Class III: Soft palate, base of uvula visible Class IV: Only hard plate visible Mallampati Classification: Class II Surgeon: Nahomy Diagnosis: Bradycardia Surgical Procedure: Permanent Pacemaker Anesthesia History: none Family History: no anesthesia problems Allergies: Coded Allergies: No Known Allergies (Unverified , 04/15/17) Medications: see eMAR Patient NPO?: Yes Past Medical History Cardiovascular: Reports: HTN, arrhythmia - Bradycardia, other - Syncope Neurologic/Psychiatric: Reports: other - Seizures Musculoskeletal/Integumentary: Reports: other - Weakness Anesthesia Pre-op Phys. Exam Physician Exam Last Vital Signs Date Time Temp Pulse Resp B/P (MAP) Pulse Ox O2 Delivery O2 Flow Rate FiO2 07/12/20 11:58 97.7 103 20 116/72 (87) 98 07/12/20 09:00 Nasal Cannula 2.0 07/12/20 07:43 28 Constitutional: NAD Neurologic: CN 2-12 intact Cardiovascular: RRR Respiratory: CTA Gastrointestinal: S/NT/ND Airway Exam Mallampati Score: Class II MO: full ROM: limited Teeth: missing, intact Anesthesia Pre-op A/P Labs Labs Test 07/10/20 04:53 07/11/20 06:58 White Blood Count 10.8 K/UL (4.8-10.8) 5.4 K/UL (4.8-10.8) Red Blood Count 3.88 M/UL (4.20-5.40) 3.77 M/UL (4.20-5.40) Hemoglobin 12.9 G/DL (12.0-16.0) 12.5 G/DL (12.0-16.0) Hematocrit 38.6 % (37.0-47.0) 39.2 % (37.0-47.0) Mean Corpuscular Volume 100 FL (80-99) 104 FL (80-99) Mean Corpuscular Hemoglobin 33.3 PG (27.0-31.0) 33.1 PG (27.0-31.0) Mean Corpuscular Hemoglobin Concent 33.4 G/DL (32.0-36.0) 31.8 G/DL (32.0-36.0) Red Cell Distribution Width 16.1 % (11.6-14.8) 14.9 % (11.6-14.8) Platelet Count 195 K/UL (150-450) 184 K/UL (150-450) Mean Platelet Volume 8.7 FL (6.5-10.1) 10.6 FL (6.5-10.1) Neutrophils (%) (Auto) 76.3 % (45.0-75.0) 44.4 % (45.0-75.0) Lymphocytes (%) (Auto) 14.2 % (20.0-45.0) 40.8 % (20.0-45.0) Monocytes (%) (Auto) 8.6 % (1.0-10.0) 11.6 % (1.0-10.0) Eosinophils (%) (Auto) 0.0 % (0.0-3.0) 2.1 % (0.0-3.0) Basophils (%) (Auto) 0.9 % (0.0-2.0) 1.1 % (0.0-2.0) Thyroid Stimulating Hormone (TSH) 0.401 uiU/mL (0.358-3.740) Free Thyroxine 0.93 NG/DL (0.76-1.46) Sodium Level 144 MMOL/L (136-145) Potassium Level 3.4 MMOL/L (3.5-5.1) Chloride Level 108 MMOL/L (98-107) Carbon Dioxide Level 28 MMOL/L (21-32) Anion Gap 8 mmol/L (5-15) Blood Urea Nitrogen 18 mg/dL (7-18) Creatinine 1.3 MG/DL (0.55-1.30) Estimat Glomerular Filtration Rate 48.6 mL/min (>60) Glucose Level 97 MG/DL (74-106) Calcium Level 8.8 MG/DL (8.5-10.1) Magnesium Level 1.7 MG/DL (1.8-2.4) Total Bilirubin 0.5 MG/DL (0.2-1.0) Aspartate Amino Transf (AST/SGOT) 19 U/L (15-37) Alanine Aminotransferase (ALT/SGPT) 19 U/L (12-78) Alkaline Phosphatase 88 U/L (46-116) Pro-B-Type Natriuretic Peptide 1972 pg/mL (0-125) Total Protein 6.4 G/DL (6.4-8.2) Albumin 2.7 G/DL (3.4-5.0) Globulin 3.7 g/dL Albumin/Globulin Ratio 0.7 (1.0-2.7) Risk Assessment & Plan Assessment: ASA 3 Plan: TIVA Status Change Before Surgery: No Pre-Antibiotics Drug: Torsten Ortiz MD Jul 12, 2020 13:07
[2020-07-12] MEDS: cefTRIAXone 1 GM in D5W 55 ML IVPB SCH (13:28)
[2020-07-12] MEDS: Azithromycin 500 MG in D5W 275 ML IV SCH (13:38)
--- NOTE | 2020-07-12 14:44 | Pulmonology Progress Note ---
Subjective ROS Limited/Unobtainable: No Interval Events: None new Constitutional: Reports: no symptoms HEENT: Repors: no symptoms Respiratory: Reports: no symptoms Cardiovascular: Reports: no symptoms Gastrointestinal/Abdominal: Reports: no symptoms Allergies: Coded Allergies: No Known Allergies (Unverified , 04/15/17) Objective Last 24 Hour Vital Signs Date Time Temp Pulse Resp B/P (MAP) Pulse Ox O2 Delivery O2 Flow Rate FiO2 07/12/20 11:58 97.7 103 20 116/72 (87) 98 07/12/20 09:00 Nasal Cannula 2.0 07/12/20 08:51 118 118/84 07/12/20 08:00 97.3 82 18 118/84 (95) 99 07/12/20 07:43 100 Nasal Cannula 2.0 28 07/12/20 07:43 78 16 99 Nasal Cannula 2.0 28 79 16 98 07/12/20 04:00 97.4 71 20 114/71 (85) 98 07/12/20 04:00 92 07/12/20 02:00 84 18 99 Nasal Cannula 2.0 28 82 18 97 07/12/20 00:00 97.0 73 16 106/73 (84) 99 07/11/20 23:59 90 07/11/20 21:00 Nasal Cannula 2.0 07/11/20 20:00 96.8 86 16 114/68 (83) 99 07/11/20 20:00 101 07/11/20 19:24 98 Nasal Cannula 2.0 28 07/11/20 19:24 89 18 98 Nasal Cannula 2.0 28 07/11/20 19:22 92 18 100 Nasal Cannula 2.0 28 89 18 98 07/11/20 16:00 100 07/11/20 16:00 96.9 102 16 116/61 (79) 100 Intake and Output 07/11/20 07/12/20 19:00 07:00 Intake Total 800 ml 650 ml Balance 800 ml 650 ml Intake Oral 800 ml 650 ml # Voids 3 4 General Appearance: no acute distress HEENT: normocephalic Respiratory: chest wall non-tender, normal breath sounds Cardiovascular: normal rate Abdomen: normal bowel sounds Current Medications Medications (Trade) Dose Ordered Sig/Izabela Route PRN Reason Start Time Stop Time Status Last Admin Dose Admin Albuterol/ Ipratropium (Albuterol/ Ipratropium) 3 ml Q6HRT HHN 07/09/20 01:00 07/14/20 00:59 07/12/20 12:13 Amlodipine Besylate (Norvasc) 10 mg DAILY ORAL 07/09/20 09:00 08/08/20 08:59 07/12/20 08:51 Atorvastatin Calcium (Lipitor) 10 mg BEDTIME ORAL 07/09/20 21:00 10/07/20 20:59 07/11/20 21:38 Azithromycin 500 mg/Dextrose 275 ml @ 275 mls/hr Q24HRS IV 07/09/20 13:00 07/15/20 13:59 07/12/20 13:38 Ceftriaxone Sodium 1 gm/ Dextrose 55 ml @ 110 mls/hr Q24H IVPB 07/09/20 13:00 07/16/20 12:59 07/12/20 13:28 Clopidogrel Bisulfate (Plavix) 75 mg DAILY ORAL 07/09/20 09:00 08/08/20 08:59 07/12/20 08:51 Enoxaparin Sodium (Lovenox) 90 mg EVERY 12 HOURS SUBQ 07/09/20 21:00 10/07/20 20:59 07/12/20 08:55 Hydrochlorothiazide (Hydrodiuril) 12.5 mg DAILY ORAL 07/09/20 09:00 08/08/20 08:59 07/10/20 10:14 Levetiracetam (Keppra) 500 mg Q12HR ORAL 07/09/20 09:00 08/23/20 08:59 07/12/20 08:51 Losartan Potassium (Cozaar) 50 mg DAILY ORAL 07/09/20 09:00 08/08/20 08:59 07/10/20 10:14 Assessment/Plan Assessment/Plan 1. Pneumonia. - on azithromycin and ceftriaxone - CXR 07/09/2020 Improving aeration with decreased perihilar infiltrates - COVID-19 PCR negative 2. Mild hypoxemia. - Contd. Supplement Oxygen 3. Hypertension. 4. Seizure disorder. 5. 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 We will follow carefully. The care of this patient was discussed with my supervising physician Time spent for this encounter was approximately 31 minutes Santiago Bell 11, 2021 14:44
[2020-07-12 16:00] VITALS: BP 115/58
--- NOTE | 2020-07-12 17:07 | NUR ---
Histology ManagerAirfreight Operations Agent SI: Bradycardia, PNA, CHF, Advanced Conduction system disease with Bradyarrhythmia and heart block T 97.7, HR 90, RR 16, BP 116/72, O2 2L NC O@ sat 98% K+ 3.4, Magnesium 1.7, IS: Lovenox SQ QD Azithromycin IV QD Rocephin IV QD Cozaar PO QD Plavix PO QD Norvasc PO QD Tele Status Plan: Pacemaker
--- NOTE | 2020-07-12 19:54 | NUR ---
NURSE HAND-OFF REPORT: Important Events on Shift:[]pt in stable condition, cleared by pulmo to do pace maker Patient Status: []full code Diet: []same diet. Pending Orders: [] Pending Results/Labs:[] Pending MD notification:[] Latest Vital Signs: Temperature 96.6 , Pulse 103 , B/P 115 /58 , Respiratory Rate 18 , O2 SAT 99 , Nasal Cannula, O2 Flow Rate 2.0 . Vital Sign Comment: [] EKG Rhythm: Atrial Flutter Rhythm change?: N Notified?: Y -Dr. Trae CANALES Response: Message left await call Latest Romo Fall Score: 30 Fall Risk: Medium Risk Safety Measures: Call light Within Reach, Bed Alarm Zone 1, Side Rails Side Rails x2, Bed position Low and Locked. Fall Precautions: y Yellow Socks y Yellow Gown y Patient Fall Education y Report given to []. Cherie/ MAURICIO
[2020-07-12 20:00] VITALS: BP 138/78
--- NOTE | 2020-07-12 20:10 | Cardiac Electrophysiology PN ---
Assessment/Plan Problem List: (1) Hypertension (2) Sick sinus syndrome (3) Paroxysmal A-fib (4) Suspected 2019-nCoV infection (5) Bradycardia (6) Syncope (7) Dyspnea Status: stable, progressing Status Narrative Mrs Fontaine is in AF w/ intermittent RVR. No further pauses noted. Appears w/ pulm congestion - ? chf due to AF / diastolic failure vs resolving pneumonia She is on diuretics. Assessment/Plan d/w Dr. Larkin. Will give iv lasix one dose tonight and re-assess, check cxr , labs in am. Plan for permanent pacemaker for symptomatic sinus node disesae ( post conversion pauses > 4 seconds and hx of syncope) scheduled for Weds. if stable Subjective ROS Limited/Unobtainable: No Subjective Cardiac EP Mrs. Fontaine remains in AF. Does not note palpitations. + nonproductive cough. No dyspnea at rest. Objective Last 24 Hour Vital Signs Date Time Temp Pulse Resp B/P (MAP) Pulse Ox O2 Delivery O2 Flow Rate FiO2 07/12/20 19:05 91 16 98 Nasal Cannula 2.0 28 90 16 98 07/12/20 19:05 99 Nasal Cannula 2.0 28 07/12/20 16:00 96.6 101 18 115/58 (77) 98 07/12/20 16:00 103 07/12/20 12:13 90 16 98 Nasal Cannula 2.0 28 88 16 98 07/12/20 12:00 106 07/12/20 11:58 97.7 103 20 116/72 (87) 98 07/12/20 09:00 Nasal Cannula 2.0 07/12/20 08:51 118 118/84 07/12/20 08:00 97.3 82 18 118/84 (95) 99 07/12/20 08:00 103 07/12/20 07:43 100 Nasal Cannula 2.0 28 07/12/20 07:43 78 16 99 Nasal Cannula 2.0 28 79 16 98 07/12/20 04:00 97.4 71 20 114/71 (85) 98 07/12/20 04:00 92 07/12/20 02:00 84 18 99 Nasal Cannula 2.0 28 82 18 97 07/12/20 00:00 97.0 73 16 106/73 (84) 99 07/11/20 23:59 90 07/11/20 21:00 Nasal Cannula 2.0 General Appearance: WD/WN, no apparent distress, alert EENT: PERRL/EOMI Neck: supple, no JVD Rhythm: Afib Cardiovascular: tachycardia, irregularly irregular Respiratory/Chest: other - R lower field rales/ rhonchi Extremities: no swelling Intake and Output 07/11/20 07/12/20 19:00 07:00 Intake Total 800 ml 650 ml Balance 800 ml 650 ml Intake Oral 800 ml 650 ml # Voids 3 4 Beatriz Brice MD Jul 12, 2020 20:10
--- NOTE | 2020-07-12 20:19 | NUR ---
NURSE NOTES: Received patient in bed, alert oriented x4, able to make her needs known, IV site is clean dry and intact. On oxygen at 2 liters /min. Call light is within reach, bed is lowered, locked, alarm is on, will continue to monitor for comfort and safety.
--- NOTE | 2020-07-12 21:45 | Cardiology Progress Note ---
Subjective DATE OF SERVICE: Jul 12, 2020 Has some SOB Denies cough or congestion Monitor: sinus bradycardia with 1st degree block and pauses above 4 seconds CXR (07/09) decreasing infiltrates COVID 19 PCR negative Objective Last 24 Hour Vital Signs Date Time Temp Pulse Resp B/P (MAP) Pulse Ox O2 Delivery O2 Flow Rate FiO2 07/12/20 19:05 91 16 98 Nasal Cannula 2.0 28 90 16 98 07/12/20 19:05 99 Nasal Cannula 2.0 28 07/12/20 16:00 96.6 101 18 115/58 (77) 98 07/12/20 16:00 103 07/12/20 12:13 90 16 98 Nasal Cannula 2.0 28 88 16 98 07/12/20 12:00 106 07/12/20 11:58 97.7 103 20 116/72 (87) 98 07/12/20 09:00 Nasal Cannula 2.0 07/12/20 08:51 118 118/84 07/12/20 08:00 97.3 82 18 118/84 (95) 99 07/12/20 08:00 103 07/12/20 07:43 100 Nasal Cannula 2.0 28 07/12/20 07:43 78 16 99 Nasal Cannula 2.0 28 79 16 98 07/12/20 04:00 97.4 71 20 114/71 (85) 98 07/12/20 04:00 92 07/12/20 02:00 84 18 99 Nasal Cannula 2.0 28 82 18 97 07/12/20 00:00 97.0 73 16 106/73 (84) 99 07/11/20 23:59 90 ROS: unchanged from 07/08/20 HEENT: normal ENT inspection RHYTHM: NSR, SB, other - oYAWA LUNGS: bilateral rhonchi CARDIAC: normal S1 and S2, bradycardia ABDOMEN: normal bowel sounds, non tender, soft, no organomegaly EXTREMITIES: normal range of motion, no calf tenderness, No edema Assessment/Plan Assessment/Plan 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 Continuous cardiac monitoring Replace K+/Mg++ Diuresis Aguilar Larkin MD Jul 12, 2020 21:45
--- NOTE | 2020-07-12 21:56 | General Progress Note ---
Subjective Date patient seen: Jul 10, 2020 ROS Limited/Unobtainable: No Constitutional: Reports: malaise, weakness HEENT: Reports: no symptoms Cardiovascular: Reports: chest pain Respiratory: Reports: shortness of breath Gastrointestinal/Abdominal: Reports: no symptoms Genitourinary: Reports: no symptoms Neurologic/Psychiatric: Reports: no symptoms Endocrine: Reports: no symptoms Hematologic/Lymphatic: Reports: no symptoms Allergies: Coded Allergies: No Known Allergies (Unverified , 04/15/17) All Systems: reviewed and negative except above Subjective c/o sob and cp. mild dizziness. no fevers. +cough. on iv abx. +doran when walking to bathroom. +dizziness when standing. Objective Last 24 Hour Vital Signs Date Time Temp Pulse Resp B/P (MAP) Pulse Ox O2 Delivery O2 Flow Rate FiO2 07/12/20 19:05 91 16 98 Nasal Cannula 2.0 28 90 16 98 07/12/20 19:05 99 Nasal Cannula 2.0 28 07/12/20 16:00 96.6 101 18 115/58 (77) 98 07/12/20 16:00 103 07/12/20 12:13 90 16 98 Nasal Cannula 2.0 28 88 16 98 07/12/20 12:00 106 07/12/20 11:58 97.7 103 20 116/72 (87) 98 07/12/20 09:00 Nasal Cannula 2.0 07/12/20 08:51 118 118/84 07/12/20 08:00 97.3 82 18 118/84 (95) 99 07/12/20 08:00 103 07/12/20 07:43 100 Nasal Cannula 2.0 28 07/12/20 07:43 78 16 99 Nasal Cannula 2.0 28 79 16 98 07/12/20 04:00 97.4 71 20 114/71 (85) 98 07/12/20 04:00 92 07/12/20 02:00 84 18 99 Nasal Cannula 2.0 28 82 18 97 07/12/20 00:00 97.0 73 16 106/73 (84) 99 07/11/20 23:59 90 Intake and Output 07/11/20 07/12/20 19:00 07:00 Intake Total 800 ml 650 ml Balance 800 ml 650 ml Intake Oral 800 ml 650 ml # Voids 3 4 Height (Feet): 5 Height (Inches): 4.00 Weight (Pounds): 200 General Appearance: WD/WN, alert Neck: supple Cardiovascular: normal rate, regular rhythm Respiratory/Chest: chest wall non-tender, lungs clear, normal breath sounds, no respiratory distress Abdomen: normal bowel sounds, non tender, soft, no organomegaly Edema: no edema noted Arm (L), no edema noted Arm (R), no edema noted Leg (L), no edema noted Leg (R) Neurologic: sole stapler welt II-XII grossly normal, no motor/sensory deficits, alert, oriented x 3 Assessment/Plan Problem List: (1) Pneumonia ICD Codes: J18.9 - Pneumonia, unspecified organism SNOMED: 551022233 (2) Syncope ICD Codes: R55 - Syncope and collapse SNOMED: 482339679, 7850624 Qualifiers: Qualified Codes: R55 - Syncope and collapse (3) Hypertension ICD Codes: I10 - Essential (primary) hypertension SNOMED: 02540379 (4) Sick sinus syndrome ICD Codes: I49.5 - Sick sinus syndrome SNOMED: 58361585 (5) Bradycardia ICD Codes: R00.1 - Bradycardia, unspecified SNOMED: 31109744 (6) Bronchitis ICD Codes: J40 - Bronchitis, not specified as acute or chronic SNOMED: 86136324 Status: stable, progressing Assessment/Plan: IV abx follow up cultures monitor cxr ivf with caution mobilize monitor orthostatic vitals cards eval noted dvt/stress ulcer prophylaxis pt/ot Ye Lester MD Jul 12, 2020 21:56
--- NOTE | 2020-07-12 22:00 | General Progress Note ---
Subjective Date patient seen: Jul 11, 2020 ROS Limited/Unobtainable: No Constitutional: Reports: malaise, weakness HEENT: Reports: no symptoms Cardiovascular: Reports: no symptoms Respiratory: Reports: shortness of breath, SOB with excertion Gastrointestinal/Abdominal: Reports: no symptoms Genitourinary: Reports: no symptoms Neurologic/Psychiatric: Reports: no symptoms Endocrine: Reports: no symptoms Hematologic/Lymphatic: Reports: no symptoms Allergies: Coded Allergies: No Known Allergies (Unverified , 04/15/17) All Systems: reviewed and negative except above Subjective feeling "a little better." Had SVT last night. no bradycardia. no fevers or chills. decreased cough. no cp. + palpitations- worse when ambulating. still with doran with walking to restroom Objective Last 24 Hour Vital Signs Date Time Temp Pulse Resp B/P (MAP) Pulse Ox O2 Delivery O2 Flow Rate FiO2 07/12/20 19:05 91 16 98 Nasal Cannula 2.0 28 90 16 98 07/12/20 19:05 99 Nasal Cannula 2.0 28 07/12/20 16:00 96.6 101 18 115/58 (77) 98 07/12/20 16:00 103 07/12/20 12:13 90 16 98 Nasal Cannula 2.0 28 88 16 98 07/12/20 12:00 106 07/12/20 11:58 97.7 103 20 116/72 (87) 98 07/12/20 09:00 Nasal Cannula 2.0 07/12/20 08:51 118 118/84 07/12/20 08:00 97.3 82 18 118/84 (95) 99 07/12/20 08:00 103 07/12/20 07:43 100 Nasal Cannula 2.0 28 07/12/20 07:43 78 16 99 Nasal Cannula 2.0 28 79 16 98 07/12/20 04:00 97.4 71 20 114/71 (85) 98 07/12/20 04:00 92 07/12/20 02:00 84 18 99 Nasal Cannula 2.0 28 82 18 97 07/12/20 00:00 97.0 73 16 106/73 (84) 99 07/11/20 23:59 90 Intake and Output 07/11/20 07/12/20 19:00 07:00 Intake Total 800 ml 650 ml Balance 800 ml 650 ml Intake Oral 800 ml 650 ml # Voids 3 4 Height (Feet): 5 Height (Inches): 4.00 Weight (Pounds): 200 General Appearance: no apparent distress, alert EENT: PERRL/EOMI, normal ENT inspection Neck: supple Cardiovascular: normal peripheral pulses, normal rate Respiratory/Chest: chest wall non-tender, lungs clear, normal breath sounds Abdomen: normal bowel sounds, non tender, soft, no organomegaly Edema: no edema noted Leg (L), no edema noted Leg (R) 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 grossly normal, alert, oriented x 3, responsive Assessment/Plan Problem List: (1) Pneumonia ICD Codes: J18.9 - Pneumonia, unspecified organism SNOMED: 695035652 (2) Syncope ICD Codes: R55 - Syncope and collapse SNOMED: 016755336, 9631403 Qualifiers: Qualified Codes: R55 - Syncope and collapse (3) Hypertension ICD Codes: I10 - Essential (primary) hypertension SNOMED: 99475797 (4) Sick sinus syndrome ICD Codes: I49.5 - Sick sinus syndrome SNOMED: 48760873 (5) Bradycardia ICD Codes: R00.1 - Bradycardia, unspecified SNOMED: 62851917 (6) Bronchitis ICD Codes: J40 - Bronchitis, not specified as acute or chronic SNOMED: 22897991 Status: stable, progressing Assessment/Plan: IV abx follow up cultures monitor cxr ivf with caution mobilize monitor orthostatic vitals cards eval noted dvt/stress ulcer prophylaxis pt/ot Ye Lester MD Jul 12, 2020 22:00
--- NOTE | 2020-07-12 22:02 | General Progress Note ---
Subjective ROS Limited/Unobtainable: No Constitutional: Reports: malaise, weakness HEENT: Reports: no symptoms Cardiovascular: Reports: no symptoms Respiratory: Reports: cough, shortness of breath Gastrointestinal/Abdominal: Reports: no symptoms Genitourinary: Reports: no symptoms Neurologic/Psychiatric: Reports: no symptoms Endocrine: Reports: no symptoms Hematologic/Lymphatic: Reports: no symptoms Allergies: Coded Allergies: No Known Allergies (Unverified , 04/15/17) All Systems: reviewed and negative except above Subjective no complaints. intermittent sob usually associated with activity. cards noted. needs pacer. cxr improved. no fevers. Objective Last 24 Hour Vital Signs Date Time Temp Pulse Resp B/P (MAP) Pulse Ox O2 Delivery O2 Flow Rate FiO2 07/12/20 19:05 91 16 98 Nasal Cannula 2.0 28 90 16 98 07/12/20 19:05 99 Nasal Cannula 2.0 28 07/12/20 16:00 96.6 101 18 115/58 (77) 98 07/12/20 16:00 103 07/12/20 12:13 90 16 98 Nasal Cannula 2.0 28 88 16 98 07/12/20 12:00 106 07/12/20 11:58 97.7 103 20 116/72 (87) 98 07/12/20 09:00 Nasal Cannula 2.0 07/12/20 08:51 118 118/84 07/12/20 08:00 97.3 82 18 118/84 (95) 99 07/12/20 08:00 103 07/12/20 07:43 100 Nasal Cannula 2.0 28 07/12/20 07:43 78 16 99 Nasal Cannula 2.0 28 79 16 98 07/12/20 04:00 97.4 71 20 114/71 (85) 98 07/12/20 04:00 92 07/12/20 02:00 84 18 99 Nasal Cannula 2.0 28 82 18 97 07/12/20 00:00 97.0 73 16 106/73 (84) 99 07/11/20 23:59 90 Intake and Output 07/11/20 07/12/20 19:00 07:00 Intake Total 800 ml 650 ml Balance 800 ml 650 ml Intake Oral 800 ml 650 ml # Voids 3 4 Height (Feet): 5 Height (Inches): 4.00 Weight (Pounds): 200 General Appearance: WD/WN, alert Neck: normal alignment Cardiovascular: normal rate, regular rhythm Respiratory/Chest: chest wall non-tender, lungs clear Abdomen: normal bowel sounds, non tender, soft, no organomegaly Edema: no edema noted Arm (L), no edema noted Arm (R), no edema noted Leg (L), no edema noted Leg (R) 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 benefits 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 grossly normal, alert, oriented x 3, responsive Lymphatic: normal anterior cervical (L), normal anterior cervical (R), normal posterior cervical (L), normal posterior cervical (R) Assessment/Plan Problem List: (1) Pneumonia ICD Codes: J18.9 - Pneumonia, unspecified organism SNOMED: 873253710 (2) Syncope ICD Codes: R55 - Syncope and collapse SNOMED: 062939067, 0255015 Qualifiers: Qualified Codes: R55 - Syncope and collapse (3) Hypertension ICD Codes: I10 - Essential (primary) hypertension SNOMED: 38173636 (4) Sick sinus syndrome ICD Codes: I49.5 - Sick sinus syndrome SNOMED: 83385882 (5) Bradycardia ICD Codes: R00.1 - Bradycardia, unspecified SNOMED: 80063196 (6) Bronchitis ICD Codes: J40 - Bronchitis, not specified as acute or chronic SNOMED: 39195626 Status: stable, progressing Assessment/Plan: IV abx follow up cultures monitor cxr ivf with caution mobilize monitor orthostatic vitals cards eval noted dvt/stress ulcer prophylaxis pt/ot pacer Ye Burch MD Jul 12, 2020 22:02
--- NOTE | 2020-07-12 23:00 | History and Physical Report ---
DATE OF ADMISSION: 07/08/2020 CHIEF COMPLAINT: Dizziness, shortness of breath. HISTORY OF PRESENT ILLNESS: Patient is a 75-year-old female. She has a history of hypertensive heart disease, conduction system disease, presented with complaints of intermittent episodes of shortness of breath, chest pain on exertion, and dizziness. According to the patient, she was well until the day of admission when she developed weakness, dizziness, lightheadedness, and shortness of breath associated with working. 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 On evaluation in the emergency room, the patient was noted to be bradycardic. Her blood pressure was stable. Chest x-ray showed bilateral infiltrates. COVID swab is negative. The patient is now admitted for further evaluation and care. PAST MEDICAL HISTORY: As above. Patient has a history of seizure disorder, history of stroke, and TIA. PAST SURGICAL HISTORY: None. CURRENT MEDICATIONS: Reconciled and reviewed. ALLERGIES: None. FAMILY HISTORY: None. SOCIAL HISTORY: Negative for tobacco, ethanol, or drugs. REVIEW OF SYSTEMS: GENERAL: Positive malaise, weakness. HEENT: No headaches or visual changes. CARDIOPULMONARY: No chest pain. Positive shortness of breath and dyspnea on exertion. No palpitations. GASTROINTESTINAL: No nausea or vomiting. GENITOURINARY: No urgency or frequency. MUSCULOSKELETAL: No joint pain or swelling. NEUROLOGIC: No evidence of seizures. PHYSICAL EXAMINATION: VITAL SIGNS: Temperature 97.8, pulse 85, respirations 20, blood pressure 130/83. GENERAL: Patient is well developed, in no apparent distress. HEART: Regular rate and rhythm. LUNGS: Clear. ABDOMEN: Soft, nontender, nondistended. EXTREMITIES: No clubbing, cyanosis, or edema. LABORATORY DATA: White count 7, hemoglobin 12, hematocrit 40, platelets of 212. Sodium 140, potassium 3.6, chloride 104, BUN 21, creatinine 1.3. BNP was 3800. Chest x-ray showed bibasilar infiltrates. COVID swab was negative. ASSESSMENT: This is a 75-year-old female admitted with complaints of shortness of breath, possibly multifactorial secondary to pneumonia, sepsis, bradycardia, dehydration. PLAN: Broad spectrum IV antibiotics. Followup chest x-ray results. Follow up cultures. Monitor heart rate on telemetry. Continue DVT and stress ulcer prophylaxis. Cardiology, EP consultations. Ye Lester M.D. DR: ANASTACIO JOB#: [id number] CC:
[2020-07-13] VITALS (7 sets, daily range): BP systolic 91–138; BP diastolic 50–78
[2020-07-13] MEDS: Albuterol/Ipratropium 3ml neb HHN SCH ×4 (01:03→20:10)
--- NOTE | 2020-07-13 01:21 | NUR ---
patient is noted with one episode of V tach, MD Gaytan was notified via phone.
--- NOTE | 2020-07-13 07:15 | NUR ---
NURSE NOTES: Received report from Shavon/RN. Observed patient awake, sitting up in bed, watching TV. On 2L nasal canula, no acute distress/SOB noted. Able to make needs known. Denies pain at this time. IV on right Right FA patent and intact. Bed in low position and locked, Call light within reach, Encouraged to use call light when needed. Will continue plan of care.
--- NOTE | 2020-07-13 07:23 | NUR ---
NURSE HAND-OFF REPORT: Important Events on Shift: one episode of vtaMD norman was made aware. Patient Status full code Diet: regular Pending Orders: Pending Results/Labs: Pending MD notification: Latest Vital Signs: Temperature 98.7 , Pulse 89 , B/P 138 /74 , Respiratory Rate 18 , O2 SAT 98 , Nasal Cannula, O2 Flow Rate 2.0 . Vital Sign Comment: EKG Rhythm: Sinus Rhythm Rhythm change?: N MD Notified?: Darion Larkin MD Response: Message left await call Latest Romo Fall Score: 30 Fall Risk: Medium Risk Safety Measures: Call light Within Reach, Bed Alarm Zone 1, Side Rails Side Rails x2, Bed position Low and Locked. Fall Precautions: Yellow Socks Yellow Gown Patient Fall Education Report given to Little MARTÍNEZ
--- NOTE | 2020-07-13 09:07 | NUR ---
CASE MANAGEMENT:REVIEW 07/13/20 SI: PNA. BRADYARRHYTHMIA & HEART BLOCK 98.7 89 18 138/74 98% ON 2L/NC IS: IV AZITHROMYCIN Q24 IV ROCEPHIN Q24 LOVENOX SQ Q12 HCTZ PO QD COZAAR PO QD KEPPRA PO Q12 PLAVIX PO QD NORVASC PO QD DUONEB HHN Q6HRS RTC : TELEMETRY STATUS DCP: FROM HOME PLAN: PACEMAKER PLACEMENT ON 07/14/20
--- NOTE | 2020-07-13 09:38 | Cardiology Progress Note ---
Subjective DATE OF SERVICE: Jul 13, 2020 Has no SOB Denies cough or congestion Monitor: sinus bradycardia with 1st degree block and pauses above 4 seconds since admit. COVID 19 PCR negative Objective Last 24 Hour Vital Signs Date Time Temp Pulse Resp B/P (MAP) Pulse Ox O2 Delivery O2 Flow Rate FiO2 07/13/20 07:41 88 16 99 Nasal Cannula 2.0 28 86 16 98 07/13/20 07:41 98 Nasal Cannula 2.0 28 07/13/20 05:30 98.7 89 18 138/74 (95) 98 07/13/20 04:00 87 07/13/20 04:00 97.8 98 18 138/78 (98) 98 07/13/20 01:03 103 16 100 Nasal Cannula 2.0 28 106 16 97 07/13/20 00:00 98.4 78 20 127/74 (91) 98 07/12/20 22:29 Nasal Cannula 2.0 07/12/20 20:00 97.8 78 18 138/78 (98) 94 78 07/12/20 20:00 99 07/12/20 19:05 91 16 98 Nasal Cannula 2.0 28 90 16 98 07/12/20 19:05 99 Nasal Cannula 2.0 28 07/12/20 16:00 96.6 101 18 115/58 (77) 98 07/12/20 16:00 103 07/12/20 12:13 90 16 98 Nasal Cannula 2.0 28 88 16 98 07/12/20 12:00 106 07/12/20 11:58 97.7 103 20 116/72 (87) 98 ROS: unchanged from 07/08/20 HEENT: normal ENT inspection RHYTHM: NSR, SB, other - oYAWA LUNGS: bilateral rhonchi CARDIAC: normal S1 and S2, bradycardia ABDOMEN: normal bowel sounds, non tender, soft, no organomegaly EXTREMITIES: normal range of motion, no calf tenderness, No edema Assessment/Plan Assessment/Plan 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 Continuous cardiac monitoring Replace K+/Mg++ Diuresis Aguilar Larkin MD Jul 13, 2020 09:38
[2020-07-13] MEDS: Enoxaparin 100mg Inj SUBQ SCH ×2 (09:41→21:13)
[2020-07-13] MEDS: hydroCHLOROthiazide 12.5mg TAB ORAL SCH (09:41)
[2020-07-13] MEDS: Losartan 50mg tab ORAL SCH (09:42)
[2020-07-13] MEDS ORDERED: guaiFENesin w/Codeine 5ml Liq ud ORAL PRN (10:30)
--- NOTE | 2020-07-13 10:49 | Pulmonology Progress Note ---
Subjective ROS Limited/Unobtainable: No Interval Events: None new Constitutional: Reports: no symptoms HEENT: Repors: no symptoms Respiratory: Reports: productive cough - phlegm, with blood Cardiovascular: Reports: no symptoms Gastrointestinal/Abdominal: Reports: no symptoms Allergies: Coded Allergies: No Known Allergies (Unverified , 04/15/17) All Systems: reviewed and negative except above Objective Last 24 Hour Vital Signs Date Time Temp Pulse Resp B/P (MAP) Pulse Ox O2 Delivery O2 Flow Rate FiO2 07/13/20 09:42 106/64 07/13/20 09:42 60 106/64 07/13/20 08:00 97.6 60 20 106/64 (78) 99 07/13/20 07:41 88 16 99 Nasal Cannula 2.0 28 86 16 98 07/13/20 07:41 98 Nasal Cannula 2.0 28 07/13/20 05:30 98.7 89 18 138/74 (95) 98 07/13/20 04:00 87 07/13/20 04:00 97.8 98 18 138/78 (98) 98 07/13/20 01:03 103 16 100 Nasal Cannula 2.0 28 106 16 97 07/13/20 00:00 98.4 78 20 127/74 (91) 98 07/12/20 22:29 Nasal Cannula 2.0 07/12/20 20:00 97.8 78 18 138/78 (98) 94 78 07/12/20 20:00 99 07/12/20 19:05 91 16 98 Nasal Cannula 2.0 28 90 16 98 07/12/20 19:05 99 Nasal Cannula 2.0 28 07/12/20 16:00 96.6 101 18 115/58 (77) 98 07/12/20 16:00 103 07/12/20 12:13 90 16 98 Nasal Cannula 2.0 28 88 16 98 07/12/20 12:00 106 07/12/20 11:58 97.7 103 20 116/72 (87) 98 Intake and Output 07/12/20 07/13/20 19:00 07:00 Intake Total 730 ml Output Total 250 ml Balance 480 ml Intake Oral 730 ml Output Urine Total 250 ml Objective 07/13 saturating well on RA with normal work of breathing; pt reports she remained on RA for 1 hour General Appearance: no acute distress HEENT: normocephalic Respiratory: chest wall non-tender, normal breath sounds Cardiovascular: normal rate Abdomen: normal bowel sounds Current Medications Medications (Trade) Dose Ordered Sig/Izabela Route PRN Reason Start Time Stop Time Status Last Admin Dose Admin Albuterol/ Ipratropium (Albuterol/ Ipratropium) 3 ml Q6HRT HHN 07/09/20 01:00 07/14/20 00:59 07/13/20 08:41 Amlodipine Besylate (Norvasc) 10 mg DAILY ORAL 07/09/20 09:00 08/08/20 08:59 07/13/20 09:42 Atorvastatin Calcium (Lipitor) 10 mg BEDTIME ORAL 07/09/20 21:00 10/07/20 20:59 07/12/20 21:02 Azithromycin 500 mg/Dextrose 275 ml @ 275 mls/hr Q24HRS IV 07/09/20 13:00 07/15/20 13:59 07/12/20 13:38 Ceftriaxone Sodium 1 gm/ Dextrose 55 ml @ 110 mls/hr Q24H IVPB 07/09/20 13:00 07/16/20 12:59 07/12/20 13:28 Clopidogrel Bisulfate (Plavix) 75 mg DAILY ORAL 07/09/20 09:00 08/08/20 08:59 07/13/20 09:41 Enoxaparin Sodium (Lovenox) 90 mg EVERY 12 HOURS SUBQ 07/09/20 21:00 10/07/20 20:59 07/13/20 09:41 Guaifenesin/ Codeine Phosphate (Robitussin with codeine) 5 ml Q6H PRN ORAL For Cough 07/13/20 10:30 08/12/20 10:29 Hydrochlorothiazide (Hydrodiuril) 12.5 mg DAILY ORAL 07/09/20 09:00 08/08/20 08:59 07/13/20 09:41 Levetiracetam (Keppra) 500 mg Q12HR ORAL 07/09/20 09:00 08/23/20 08:59 07/13/20 09:42 Losartan Potassium (Cozaar) 50 mg DAILY ORAL 07/09/20 09:00 08/08/20 08:59 07/13/20 09:42 Assessment/Plan Assessment/Plan 1. Pneumonia. - on azithromycin and ceftriaxone - CXR 07/09/2020 Improving aeration with decreased perihilar infiltrates - COVID-19 PCR negative 2. Mild hypoxemia. - now on RA saturating well in the mid 90s - supplemental oxygen as needed 3. Hypertension. 4. Seizure disorder. 5. 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 We will follow carefully. The care of this patient was discussed with my supervising physician Time spent for this encounter was approximately 31 minutes Santiago Bell Jul 13, 2020 10:49
[2020-07-13] MEDS: cefTRIAXone 1 GM in D5W 55 ML IVPB SCH (12:29)
[2020-07-13] MEDS: Azithromycin 500 MG in D5W 275 ML IV SCH (13:00)
--- NOTE | 2020-07-13 16:01 | General Progress Note ---
Subjective ROS Limited/Unobtainable: No Constitutional: Reports: malaise, weakness HEENT: Reports: no symptoms Cardiovascular: Reports: no symptoms Respiratory: Reports: no symptoms Gastrointestinal/Abdominal: Reports: no symptoms Genitourinary: Reports: no symptoms Neurologic/Psychiatric: Reports: no symptoms Endocrine: Reports: no symptoms Hematologic/Lymphatic: Reports: no symptoms Allergies: Coded Allergies: No Known Allergies (Unverified , 04/15/17) All Systems: reviewed and negative except above Subjective no complaints. intermittent sob usually associated with activity. cards noted. needs pacer. cxr improved. no fevers. Objective Last 24 Hour Vital Signs Date Time Temp Pulse Resp B/P (MAP) Pulse Ox O2 Delivery O2 Flow Rate FiO2 07/13/20 09:42 106/64 07/13/20 09:42 60 106/64 07/13/20 09:00 Nasal Cannula 2.0 07/13/20 08:00 60 07/13/20 08:00 97.6 60 20 106/64 (78) 99 07/13/20 07:41 88 16 99 Nasal Cannula 2.0 28 86 16 98 07/13/20 07:41 98 Nasal Cannula 2.0 28 07/13/20 05:30 98.7 89 18 138/74 (95) 98 07/13/20 04:00 87 07/13/20 04:00 97.8 98 18 138/78 (98) 98 07/13/20 01:03 103 16 100 Nasal Cannula 2.0 28 106 16 97 07/13/20 00:00 98.4 78 20 127/74 (91) 98 07/12/20 22:29 Nasal Cannula 2.0 07/12/20 20:00 97.8 78 18 138/78 (98) 94 78 07/12/20 20:00 99 07/12/20 19:05 91 16 98 Nasal Cannula 2.0 28 90 16 98 07/12/20 19:05 99 Nasal Cannula 2.0 28 Intake and Output 07/12/20 07/13/20 19:00 07:00 Intake Total 730 ml Output Total 250 ml Balance 480 ml Intake Oral 730 ml Output Urine Total 250 ml Height (Feet): 5 Height (Inches): 4.00 Weight (Pounds): 200 Objective General Appearance: WD/WN, alert Neck: normal alignment Cardiovascular: normal rate, regular rhythm Respiratory/Chest: chest wall non-tender, lungs clear Abdomen: normal bowel sounds, non tender, soft, no organomegaly Edema: no edema noted Arm (L), no edema noted Arm (R), no edema noted Leg (L), no edema noted Leg (R) Neurologic: 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 director II-XII grossly normal, alert, oriented x 3, responsive Lymphatic: normal anterior cervical (L), normal anterior cervical (R), normal posterior cervical (L), normal posterior cervical (R) Assessment/Plan Problem List: (1) Pneumonia ICD Codes: J18.9 - Pneumonia, unspecified organism SNOMED: 586263556 (2) Syncope ICD Codes: R55 - Syncope and collapse SNOMED: 055612103, 2644403 Qualifiers: Qualified Codes: R55 - Syncope and collapse (3) Hypertension ICD Codes: I10 - Essential (primary) hypertension SNOMED: 47963827 (4) Sick sinus syndrome ICD Codes: I49.5 - Sick sinus syndrome SNOMED: 31813261 (5) Bradycardia ICD Codes: R00.1 - Bradycardia, unspecified SNOMED: 53712944 (6) Bronchitis ICD Codes: J40 - Bronchitis, not specified as acute or chronic SNOMED: 91581686 Status: stable, progressing Assessment/Plan: IV abx follow up cultures monitor cxr ivf with caution mobilize monitor orthostatic vitals cards eval noted dvt/stress ulcer prophylaxis pt/ot pacer Ye Burch MD Jul 13, 2020 16:01
--- NOTE | 2020-07-13 17:04 | Diagnostic Imaging Report ---
Indication: Cough Technique: One view of the chest Comparison: 07/09/2020 Findings: Heart remains enlarged. The lungs and pleural spaces are clear. No significant change Impression: No acute process
--- NOTE | 2020-07-13 18:28 | Cardiac Electrophysiology PN ---
Assessment/Plan Problem List: (1) Hypertension (2) Sick sinus syndrome (3) Paroxysmal A-fib (4) Suspected 2019-nCoV infection (5) Bradycardia (6) Syncope (7) Dyspnea Status: stable, progressing Status Narrative Mrs Fontaine is now sinus rhythm, converted from AF. She has sick sinus/ tachy-kailey, w/ previous syncope and pauses > 3 seconds while awake. Currently, hemodynamically stable. Wheezing - ? post viral bronchospasm. rec'd i v lasix yesterday for vol overload. cxr today negative for infiltrate or edema. Assessment/Plan Plan for permanent pacemaker tomorrow. d/w pt , who understands and agrees to proceed. Hold lovenox. Will give bronchodilator for wheezing. Subjective ROS Limited/Unobtainable: No Subjective Cardiac EP Mrs. Fontaine's rhythm converted to NSR last pm. She notes wheezing. No chest pain, dizziness or palpitations Objective Last 24 Hour Vital Signs Date Time Temp Pulse Resp B/P (MAP) Pulse Ox O2 Delivery O2 Flow Rate FiO2 07/13/20 16:00 97.9 60 20 100/50 (67) 100 07/13/20 16:00 61 07/13/20 12:00 55 07/13/20 12:00 97.7 61 20 102/54 (70) 99 07/13/20 09:42 106/64 07/13/20 09:42 60 106/64 07/13/20 09:00 Nasal Cannula 2.0 07/13/20 08:00 60 07/13/20 08:00 97.6 60 20 106/64 (78) 99 07/13/20 07:41 88 16 99 Nasal Cannula 2.0 28 86 16 98 07/13/20 07:41 98 Nasal Cannula 2.0 28 07/13/20 05:30 98.7 89 18 138/74 (95) 98 07/13/20 04:00 87 07/13/20 04:00 97.8 98 18 138/78 (98) 98 07/13/20 01:03 103 16 100 Nasal Cannula 2.0 28 106 16 97 07/13/20 00:00 98.4 78 20 127/74 (91) 98 07/12/20 22:29 Nasal Cannula 2.0 07/12/20 20:00 97.8 78 18 138/78 (98) 94 78 07/12/20 20:00 99 07/12/20 19:05 91 16 98 Nasal Cannula 2.0 28 90 16 98 07/12/20 19:05 99 Nasal Cannula 2.0 28 General Appearance: WD/WN, no apparent distress, alert EENT: PERRL/EOMI Neck: no JVD Rhythm: NSR Cardiovascular: normal rate, regular rhythm Respiratory/Chest: expiratory wheezing Abdomen: non tender, soft Extremities: no swelling Neurologic: alert, oriented x 3, responsive Intake and Output 07/12/20 07/13/20 19:00 07:00 Intake Total 730 ml Output Total 250 ml Balance 480 ml Intake Oral 730 ml Output Urine Total 250 ml Beatriz Brice MD Jul 13, 2020 18:28
--- NOTE | 2020-07-13 18:38 | Pre-Procedure Note/Attestation ---
Pre-Procedure Note/Attestation Complete Prior to Procedure Planned Procedure: left Procedure Narrative: permanent pacemaker Attestation I attest that I discussed the nature of the procedure; its benefits; risks and complications; and alternatives (and the risks and benefits of such alternatives), prior to the procedure, with the patient (or the patient's legal indirect sales representative). I attest that, if there was a reasonable possibility of needing a blood transfusion, the patient (or the patient's legal indirect sales representative) was given the [facility] standardized written summary, pursuant to the Ethan Chava Blood Safety Act ([place] Health and Safety Code # 1645, as amended). I attest that I re-evaluated the patient just prior to the surgery and that there has been no change in the patient's H&P, except as documented below: Beatriz Brice MD Jul 13, 2020 18:38
[2020-07-13] MEDS ORDERED: Ipratropium 0.02% Inh Soln 2.5ml UD HHN PRN (18:45)
--- NOTE | 2020-07-13 19:25 | NUR ---
NURSE HAND-OFF REPORT: Important Events on Shift:NA Patient Status: Stable Diet: NPO Pending Orders: Pacemaker Pending Results/Labs:Morning labs Pending MD notification:NA Latest Vital Signs: Temperature 97.9 , Pulse 61 , B/P 100 /50 , Respiratory Rate 20 , O2 SAT 100 , Nasal Cannula, O2 Flow Rate 2.0 . Vital Sign Comment: Stable EKG Rhythm: Sinus Rhythm Rhythm change?: N MD Notified?: Darion Larkin MD Response: Message left await call Latest Romo Fall Score: 30 Fall Risk: Medium Risk Safety Measures: Call light Within Reach, Bed Alarm Zone 1, Side Rails Side Rails x2, Bed position Low and Locked. Fall Precautions: Yellow Socks Yellow Gown Patient Fall Education Report given to Hollie/RN.
--- NOTE | 2020-07-13 19:47 | NUR ---
NURSE NOTES: Patient received from Little RN. Patient alert and oriented x4. No c/o pain and no s/s of pain or distress. Saturating well on 2L of oxygen via nasal cannula. NPO at midnight for Permanent pacemaker tomorrow. IV site patent and intact on Right FA 22G Salin locked. Bed in lowest position and locked. Call light and bedside table within reach.
[2020-07-14] VITALS (13 sets, daily range): BP systolic 94–142; BP diastolic 54–92
[2020-07-14] MEDS: Azithromycin 500 MG in D5W 275 ML IV SCH (02:20)
--- NOTE | 2020-07-14 02:35 | Cardiology Progress Note ---
Subjective DATE OF SERVICE: Jul 14, 2020 Has no SOB Denies cough or congestion Monitor: sinus bradycardia with 1st degree block and pauses above 4 seconds since admit. COVID 19 PCR negative Objective Last 24 Hour Vital Signs Date Time Temp Pulse Resp B/P (MAP) Pulse Ox O2 Delivery O2 Flow Rate FiO2 07/14/20 00:00 97.0 58 49 94/54 (67) 99 07/13/20 23:17 64 07/13/20 21:00 Nasal Cannula 2.0 07/13/20 20:44 65 07/13/20 20:10 98 Nasal Cannula 2.0 28 07/13/20 20:10 92 18 100 Nasal Cannula 2.0 28 89 18 98 07/13/20 20:00 96.9 59 17 91/52 (65) 99 07/13/20 16:00 97.9 60 20 100/50 (67) 100 07/13/20 16:00 61 07/13/20 12:00 55 07/13/20 12:00 97.7 61 20 102/54 (70) 99 07/13/20 09:42 106/64 07/13/20 09:42 60 106/64 07/13/20 09:00 Nasal Cannula 2.0 07/13/20 08:00 60 07/13/20 08:00 97.6 60 20 106/64 (78) 99 07/13/20 07:41 88 16 99 Nasal Cannula 2.0 28 86 16 98 07/13/20 07:41 98 Nasal Cannula 2.0 28 07/13/20 05:30 98.7 89 18 138/74 (95) 98 07/13/20 04:00 87 07/13/20 04:00 97.8 98 18 138/78 (98) 98 ROS: unchanged from 07/08/20 HEENT: normal ENT inspection RHYTHM: NSR, SB, other - oYAWA LUNGS: bilateral rhonchi CARDIAC: normal S1 and S2, bradycardia ABDOMEN: normal bowel sounds, non tender, soft, no organomegaly EXTREMITIES: normal range of motion, no calf tenderness, No edema Assessment/Plan Assessment/Plan 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 Abx O2 as needed Resp rx Will need pacer - glenn for today Continuous cardiac monitoring Replace K+/Mg++ Diuresis Add beta donnie post pacer implant Aguilar Larkin MD Jul 14, 2020 02:35
[2020-07-14] MEDS ORDERED: ceFAZolin 2gm/50ml Premix 50 ML IVPB PRN (06:00)
--- NOTE | 2020-07-14 06:43 | NUR ---
NURSE HAND-OFF REPORT: Important Events on Shift:[none] Patient Status: [A&ox4, stable] Diet: [NPO] Pending Orders: [] Pending Results/Labs:[] Pending MD notification:[] Latest Vital Signs: Temperature 97.9 , Pulse 60 , B/P 104 /56 , Respiratory Rate 17 , O2 SAT 93 , Nasal Cannula, O2 Flow Rate 2.0 . Vital Sign Comment: [] EKG Rhythm: Sinus Rhythm Rhythm change?: N MD Notified?: Darion Larkin MD Response: Message left await call Latest Romo Fall Score: 30 Fall Risk: Medium Risk Safety Measures: Call light Within Reach, Bed Alarm Zone 1, Side Rails Side Rails x2, Bed position Low and Locked. Fall Precautions: Yellow Socks Yellow Gown Patient Fall Education Report given to []. Addendum: 07/14/20 at 0703 by Rekha Prieto RN Report Given to Little MARTÍNEZ
--- NOTE | 2020-07-14 07:05 | NUR ---
NURSE NOTES: Received report from Hollie/RN. Observed patient asleep, lying semi-mercado's in bed, resting comfortably. On 2L nasal canula, no acute distress/SOB noted. Able to make needs known. IV on right Right FA patent and intact. NS running at 60cc/hr. Bed in low position and locked, Call light within reach, Encouraged to use call light when needed. Will continue plan of care.
[2020-07-14 07:42] LABS: HEMATOCRIT 36.5 % (37.0-47.0); HEMOGLOBIN 12.1 G/DL (12.0-16.0); MEAN CORPUSCULAR VOLUME 100 FL (80-99); PLATELET COUNT 191 K/UL (150-450); RED BLOOD COUNT 3.66 M/UL (4.20-5.40); RED CELL DISTRIBUTION WIDTH 14.8 % (11.6-14.8); WHITE BLOOD COUNT 4.6 K/UL (4.8-10.8)
[2020-07-14 07:44] LABS: ALBUMIN 2.9 G/DL (3.4-5.0); ALBUMIN/GLOBULIN RATIO 0.8 (1.0-2.7); BILIRUBIN,TOTAL 0.5 MG/DL (0.2-1.0); CALCIUM 9.1 MG/DL (8.5-10.1); CREATININE 1.1 MG/DL (0.55-1.30); POTASSIUM 4.1 MMOL/L (3.5-5.1)
[2020-07-14] MEDS: Losartan 50mg tab ORAL SCH (08:49)
[2020-07-14] MEDS: hydroCHLOROthiazide 12.5mg TAB ORAL SCH (08:49)
--- NOTE | 2020-07-14 09:25 | NUR ---
CASE MANAGEMENT:REVIEW 07/14/20 SI: PNA. BRADYARRHYTHMIA & HEART BLOCK 97.9 65 20 128/72 98% ON 2L/NC BNMP+933 IS: IV AZITHROMYCIN Q24 IV ROCEPHIN Q24 LOVENOX SQ Q12 HCTZ PO QD COZAAR PO QD KEPPRA PO Q12 PLAVIX PO QD NORVASC PO QD DUONEB HHN Q6HRS RTC : TELEMETRY STATUS DCP: FROM HOME PLAN: PACEMAKER PLACEMENT TODAY
--- NOTE | 2020-07-14 09:35 | NUR ---
NURSE NOTES: Patient went down to surgery for pacemaker placement. Off tele order in place.
[2020-07-14] MEDS ORDERED: fentaNYL 100 mcg/2 mL IV ONE (09:52)
[2020-07-14] MEDS ORDERED: Bacitracin Oint 15gm Tube TOPIC ONE (09:56)
[2020-07-14] MEDS ORDERED: Bupivacaine 0.25% Inj 30ml INJ ONE (09:56)
[2020-07-14] MEDS ORDERED: Iothalamate Meglumine 60% 50ML INJ ONE (09:56)
[2020-07-14] MEDS ORDERED: Bacitracin 50000 Units Vial ONE (09:57)
[2020-07-14] MEDS ORDERED: NS 275ml ONE (10:00)
[2020-07-14] MEDS ORDERED: NS Irrig 1000ml ONE (10:00)
[2020-07-14] MEDS ORDERED: Sterile Water Irrig 1000ml IRRIG ONE (10:00)
--- NOTE | 2020-07-14 10:03 | Pre-Procedure Note/Attestation ---
Pre-Procedure Note/Attestation Complete Prior to Procedure Planned Procedure: left Procedure Narrative: permanent pacemaker Indications for Procedure Pre-Operative Diagnosis: syncope, sick sinus syndrome Attestation I attest that I discussed the nature of the procedure; its benefits; risks and complications; and alternatives (and the risks and benefits of such alternatives), prior to the procedure, with the patient (or the patient's legal retail account representative). I attest that, if there was a reasonable possibility of needing a blood transfusion, the patient (or the patient's legal retail account representative) was given the [facility] standardized written summary, pursuant to the Ethan Chava Blood Safety Act ([place] Health and Safety Code # 1645, as amended). I attest that I re-evaluated the patient just prior to the surgery and that there has been no change in the patient's H&P, except as documented below: Beatriz Brice MD Jul 14, 2020 10:03
[2020-07-14] MEDS ORDERED: fentaNYL 100 mcg/2 mL IV PRN (11:00)
[2020-07-14] MEDS ORDERED: Thrombin 5000 units TOPIC ONE (11:30)
--- NOTE | 2020-07-14 11:53 | Operative Note - PDOC ---
Operative Note Operative Note Date of Operation/Procedure: Jul 14, 2020 Pre-op Diagnosis: syncope, sick sinus syndrome Procedure: permanent dual chamber pacemaker Post-op Diagnosis: sick sinus syndrome Post-op Diagnosis: same as pre-op Operative Findings: consistent w/pre-op dx studies, other - dual chamber pacemaker placed via L cephalic vein Surgeon: trevin mayberry Chief Load Dispatcher: none Anesthesia: local, MAC Specimen: none Complications: none Condition: stable Estimated Blood Loss: volume - 20cc Drains: none Implant(s) used?: Yes Indications for Procedure syncope, sick sinus syndrome Description of Procedure see dictation #[id number] Beatriz Mayberry MD Jul 14, 2020 11:53
[2020-07-14] MEDS: Metoprolol Tartrate 12.5mg TAB ORAL SCH ×2 (12:00→20:50)
[2020-07-14] MEDS ORDERED: Tylenol #3 tab (300mg/30mg) ORAL PRN (12:00)
[2020-07-14] MEDS ORDERED: Acetaminophen 500mg (ES) tab ORAL PRN (12:00)
--- NOTE | 2020-07-14 12:01 | Immediate Post-Op Evaluation ---
Immediate Post-Op Evalulation Immediate Post-Op Evalulation Procedure: Permanent pacemaker placement Date of Evaluation: Jul 14, 2020 Time of Evaluation: 12:00 IV Fluids: 500` Blood Products: none Estimated Blood Loss: 50 Urinary Output: none Blood Pressure Systolic: 127 Blood Pressure Diastolic: 64 Pulse Rate: 86 Respiratory Rate: 20 O2 Sat by Pulse Oximetry: 99 Temperature (Fahrenheit): 98.6 Pain Score (1-10): 1 Nausea: No Vomiting: No Complications none Patient Status: awake, patent, none Hydration Status: adequate Alo Hardy MD Jul 14, 2020 12:01
--- NOTE | 2020-07-14 12:55 | NUR ---
NURSE NOTES: Patient came back from surgery, awake and alert. VS taken, No acute distress noted. Will continue to monitor.
[2020-07-14] MEDS: cefTRIAXone 1 GM in D5W 55 ML IVPB SCH (13:34)
--- NOTE | 2020-07-14 14:33 | Diagnostic Imaging Report ---
Indication: Post pacemaker placement Technique: One view of the chest Comparison: 07/13/2020 Findings: Interim placement left chest pacemaker, lead tips projecting at the expected levels of the right atrium and right ventricular apex. No pneumothorax. There is atelectasis are seen in the left upper lobe. The heart is borderline enlarged. The right lung and pleural spaces are clear Impression: Satisfactory pacemaker placement. No radiographically evident complication Other findings as noted
--- NOTE | 2020-07-14 15:22 | Pulmonology Progress Note ---
Subjective ROS Limited/Unobtainable: No Interval Events: None new Constitutional: Reports: no symptoms HEENT: Repors: no symptoms Respiratory: Reports: productive cough - phlegm, with blood Cardiovascular: Reports: no symptoms Gastrointestinal/Abdominal: Reports: no symptoms Allergies: Coded Allergies: No Known Allergies (Unverified , 04/15/17) All Systems: reviewed and negative except above Objective Last 24 Hour Vital Signs Date Time Temp Pulse Resp B/P (MAP) Pulse Ox O2 Delivery O2 Flow Rate FiO2 07/14/20 12:55 97.8 95 22 142/81 98 Nasal Cannula 3 07/14/20 12:40 90 19 142/83 98 Nasal Cannula 3 07/14/20 12:30 98 14 135/92 97 Nasal Cannula 3 07/14/20 12:20 92 21 127/81 96 Nasal Cannula 3 07/14/20 12:10 99 15 126/89 100 Simple Mask 6 07/14/20 12:05 88 13 140/79 100 Simple Mask 6 07/14/20 12:01 86 20 99 07/14/20 12:00 99 13 139/86 100 Simple Mask 6 07/14/20 11:54 98.4 108 14 127/85 100 Simple Mask 6 07/14/20 09:00 Nasal Cannula 2.0 07/14/20 08:49 128/72 07/14/20 08:48 65 128/72 07/14/20 08:00 97.9 65 20 128/72 (90) 98 07/14/20 08:00 62 07/14/20 04:00 60 07/14/20 04:00 97.9 57 17 104/56 (72) 93 07/14/20 00:00 97.0 58 18 94/54 (67) 99 07/13/20 23:17 64 07/13/20 21:00 Nasal Cannula 2.0 07/13/20 20:44 65 07/13/20 20:10 98 Nasal Cannula 2.0 28 07/13/20 20:10 92 18 100 Nasal Cannula 2.0 28 89 18 98 07/13/20 20:00 96.9 59 17 91/52 (65) 99 07/13/20 16:00 97.9 60 20 100/50 (67) 100 07/13/20 16:00 61 Intake and Output 07/13/20 07/14/20 19:00 07:00 Intake Total 325 ml 240 ml Balance 325 ml 240 ml Intake Oral 325 ml 240 ml # Voids 3 2 Objective 07/13 saturating well on RA with normal work of breathing; pt reports she remained on RA for 1 hour General Appearance: no acute distress HEENT: normocephalic Respiratory: chest wall non-tender, normal breath sounds Cardiovascular: normal rate Abdomen: normal bowel sounds Laboratory Tests 07/14/20 06:10: White Blood Count 4.6L, Red Blood Count 3.66L, Hemoglobin 12.1, Hematocrit 36.5L , Mean Corpuscular Volume 100H, Mean Corpuscular Hemoglobin 32.9H, Mean Corpuscular Hemoglobin Concent 33.1, Red Cell Distribution Width 14.8, Platelet Count 191, Mean Platelet Volume 10.1, Neutrophils (%) (Auto) , Lymphocytes (%) (Auto) , Monocytes (%) (Auto) , Eosinophils (%) (Auto) , Basophils (%) (Auto) , Differential Total Cells Counted 100, Neutrophils % (Manual) 47, Lymphocytes % (Manual) 29, Monocytes % (Manual) 16H, Eosinophils % (Manual) 8H, Basophils % (Manual) 0, Band Neutrophils 0, Platelet Estimate Adequate, Platelet Morphology Normal, Hypochromasia 1+, Anisocytosis 1+, Macrocytosis 1+, Sodium Level 142, Potassium Level 4.1, Chloride Level 107, Carbon Dioxide Level 28, Anion Gap 7, Blood Urea Nitrogen 12, Creatinine 1.1, Estimat Glomerular Filtration Rate 59.0, Glucose Level 94, Calcium Level 9.1, Magnesium Level 1.9, Total Bilirubin 0.5, Aspartate Amino Transf (AST/SGOT) 26, Alanine Aminotransferase (ALT/SGPT) 31, Alkaline Phosphatase 86, Pro-B-Type Natriuretic Peptide 933H, Total Protein 6.5, Albumin 2.9L, Globulin 3.6, Albumin/Globulin Ratio 0.8L Current Medications Medications (Trade) Dose Ordered Sig/Izabela Route PRN Reason Start Time Stop Time Status Last Admin Dose Admin Acetaminophen (Tylenol) 500 mg Q4H PRN ORAL Mild Pain (Pain Scale 1-3) 07/14/20 12:00 08/13/20 11:59 Acetaminophen/ Codeine Phosphate (Tylenol #3) 1 tab Q4H PRN ORAL Moderate Pain (Pain Scale 4-6) 07/14/20 12:00 07/17/20 10:00 07/14/20 15:05 Amlodipine Besylate (Norvasc) 10 mg DAILY ORAL 07/09/20 09:00 08/08/20 08:59 07/14/20 08:48 Atorvastatin Calcium (Lipitor) 10 mg BEDTIME ORAL 07/09/20 21:00 10/07/20 20:59 07/13/20 21:09 Azithromycin 500 mg/Dextrose 275 ml @ 275 mls/hr Q24HRS IV 07/09/20 13:00 07/15/20 13:59 07/14/20 02:20 Cefazolin Sodium 50 ml @ 90.909 mls/ hr ONCE PRN IVPB FLASK CARRIER TO OR 07/14/20 06:00 07/14/20 23:59 Cefazolin Sodium 1 gm/Dextrose 55 ml @ 110 mls/hr Q8HR@0200,1000,1800 IVPB 07/14/20 18:00 07/15/20 02:29 Ceftriaxone Sodium 1 gm/ Dextrose 55 ml @ 110 mls/hr Q24H IVPB 07/09/20 13:00 07/16/20 12:59 07/14/20 13:34 Clopidogrel Bisulfate (Plavix) 75 mg DAILY ORAL 07/09/20 09:00 08/08/20 08:59 07/14/20 08:48 Guaifenesin/ Codeine Phosphate (Robitussin with codeine) 5 ml Q6H PRN ORAL For Cough 07/13/20 10:30 08/12/20 10:29 Hydrochlorothiazide (Hydrodiuril) 12.5 mg DAILY ORAL 07/09/20 09:00 08/08/20 08:59 07/14/20 08:49 Ipratropium [place] (Atrovent) 500 mcg TIDPRN PRN HHN Shortness of Breath 07/13/20 18:45 07/18/20 18:44 Levetiracetam (Keppra) 500 mg Q12HR ORAL 07/09/20 09:00 08/23/20 08:59 07/14/20 08:49 Losartan Potassium (Cozaar) 50 mg DAILY ORAL 07/09/20 09:00 08/08/20 08:59 07/14/20 08:49 Metoprolol Tartrate (Lopressor) 12.5 mg Q12HR ORAL 07/14/20 12:00 10/12/20 11:59 Sodium Chloride 1,000 ml @ 60 mls/hr [id number] IV 07/14/20 07:00 08/13/20 06:59 07/14/20 06:06 Assessment/Plan Assessment/Plan 1. Pneumonia. - on azithromycin and ceftriaxone - CXR 07/09/2020 Improving aeration with decreased perihilar infiltrates - COVID-19 PCR negative 2. Mild hypoxemia. - remains on RA saturating at 97% - supplemental oxygen as needed 3. Hypertension. - s/p pacer, on metoprolol 4. Seizure disorder. 5. 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 We will follow carefully. The care of this patient was discussed with my supervising physician Time spent for this encounter was approximately 31 minutes Santiago Bell Jul 14, 2020 15:22
--- NOTE | 2020-07-14 15:36 | General Progress Note ---
Subjective ROS Limited/Unobtainable: No Constitutional: Reports: malaise, weakness HEENT: Reports: no symptoms Cardiovascular: Reports: no symptoms Respiratory: Reports: cough Gastrointestinal/Abdominal: Reports: no symptoms Genitourinary: Reports: no symptoms Neurologic/Psychiatric: Reports: no symptoms Endocrine: Reports: no symptoms Hematologic/Lymphatic: Reports: no symptoms Allergies: Coded Allergies: No Known Allergies (Unverified , 04/15/17) All Systems: reviewed and negative except above Subjective no complaints. resting. anxious to proceed with pacer. no chest pain or sob. no fevers or chills. Objective Last 24 Hour Vital Signs Date Time Temp Pulse Resp B/P (MAP) Pulse Ox O2 Delivery O2 Flow Rate FiO2 07/14/20 12:55 97.8 95 22 142/81 98 Nasal Cannula 3 07/14/20 12:40 90 19 142/83 98 Nasal Cannula 3 07/14/20 12:30 98 14 135/92 97 Nasal Cannula 3 07/14/20 12:20 92 21 127/81 96 Nasal Cannula 3 07/14/20 12:10 99 15 126/89 100 Simple Mask 6 07/14/20 12:05 88 13 140/79 100 Simple Mask 6 07/14/20 12:01 86 20 99 07/14/20 12:00 99 13 139/86 100 Simple Mask 6 07/14/20 11:54 98.4 108 14 127/85 100 Simple Mask 6 07/14/20 09:00 Nasal Cannula 2.0 07/14/20 08:49 128/72 07/14/20 08:48 65 128/72 07/14/20 08:00 97.9 65 20 128/72 (90) 98 07/14/20 08:00 62 07/14/20 04:00 60 07/14/20 04:00 97.9 57 17 104/56 (72) 93 07/14/20 00:00 97.0 58 18 94/54 (67) 99 07/13/20 23:17 64 07/13/20 21:00 Nasal Cannula 2.0 07/13/20 20:44 65 07/13/20 20:10 98 Nasal Cannula 2.0 28 07/13/20 20:10 92 18 100 Nasal Cannula 2.0 28 89 18 98 07/13/20 20:00 96.9 59 17 91/52 (65) 99 07/13/20 16:00 97.9 60 20 100/50 (67) 100 07/13/20 16:00 61 Intake and Output 07/13/20 07/14/20 19:00 07:00 Intake Total 325 ml 240 ml Balance 325 ml 240 ml Intake Oral 325 ml 240 ml # Voids 3 2 Laboratory Tests 07/14/20 06:10: White Blood Count 4.6L, Red Blood Count 3.66L, Hemoglobin 12.1, Hematocrit 36.5L , Mean Corpuscular Volume 100H, Mean Corpuscular Hemoglobin 32.9H, Mean Corpuscular Hemoglobin Concent 33.1, Red Cell Distribution Width 14.8, Platelet Count 191, Mean Platelet Volume 10.1, Neutrophils (%) (Auto) , Lymphocytes (%) (Auto) , Monocytes (%) (Auto) , Eosinophils (%) (Auto) , Basophils (%) (Auto) , Differential Total Cells Counted 100, Neutrophils % (Manual) 47, Lymphocytes % (Manual) 29, Monocytes % (Manual) 16H, Eosinophils % (Manual) 8H, Basophils % (Manual) 0, Band Neutrophils 0, Platelet Estimate Adequate, Platelet Morphology Normal, Hypochromasia 1+, Anisocytosis 1+, Macrocytosis 1+, Sodium Level 142, Potassium Level 4.1, Chloride Level 107, Carbon Dioxide Level 28, Anion Gap 7, Blood Urea Nitrogen 12, Creatinine 1.1, Estimat Glomerular Filtration Rate 59.0, Glucose Level 94, Calcium Level 9.1, Magnesium Level 1.9, Total Bilirubin 0.5, Aspartate Amino Transf (AST/SGOT) 26, Alanine Aminotransferase (ALT/SGPT) 31, Alkaline Phosphatase 86, Pro-B-Type Natriuretic Peptide 933H, Total Protein 6.5, Albumin 2.9L, Globulin 3.6, Albumin/Globulin Ratio 0.8L Height (Feet): 5 Height (Inches): 3.00 Weight (Pounds): 212 Objective General Appearance: WD/WN, alert Neck: normal alignment Cardiovascular: normal rate, regular rhythm Respiratory/Chest: chest wall non-tender, lungs clear Abdomen: normal bowel sounds, non tender, soft, no organomegaly Edema: no edema noted Arm (L), no edema noted Arm (R), no edema noted Leg (L), no edema noted Leg (R) 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, alert, oriented x 3, responsive Lymphatic: normal anterior cervical (L), normal anterior cervical (R), normal posterior cervical (L), normal posterior cervical (R) Assessment/Plan Problem List: (1) Pneumonia ICD Codes: J18.9 - Pneumonia, unspecified organism SNOMED: 435500737 (2) Syncope ICD Codes: R55 - Syncope and collapse SNOMED: 213043764, [id number] Qualifiers: Qualified Codes: R55 - Syncope and collapse (3) Hypertension ICD Codes: I10 - Essential (primary) hypertension SNOMED: 14218975 (4) Sick sinus syndrome ICD Codes: I49.5 - Sick sinus syndrome SNOMED: 28269164 (5) Bradycardia ICD Codes: R00.1 - Bradycardia, unspecified SNOMED: 14350819 (6) Bronchitis ICD Codes: J40 - Bronchitis, not specified as acute or chronic SNOMED: 03310764 Status: stable, progressing Assessment/Plan: IV abx monitor cxr pacer today mobilize monitor orthostatic vitals cards eval noted dvt/stress ulcer prophylaxis pt/ot Ye Lester MD Jul 14, 2020 15:36
--- NOTE | 2020-07-14 15:54 | Diagnostic Imaging Report ---
INDICATION: Pain, intraoperative TECHNIQUE: Intraoperative imaging Fluoroscopy time: 265 seconds Total dose: 1.42 mGym2 Total number of images: 3 COMPARISON: None FINDINGS: Intraoperative images document placement of pacemaker leads in the heart IMPRESSION: Intraoperative imaging, as described
--- NOTE | 2020-07-14 17:14 | Operative Note - Dictated ---
DATE OF OPERATION: 07/14/2020 SURGEON: Beatriz Brice MD PROCEDURE PERFORMED: Permanent dual-chamber pacemaker. INDICATION: Sick sinus syndrome. CLINICAL HISTORY: The patient is an 75-year-old woman with paroxysmal atrial fibrillation and long post-conversion pauses with history of syncope. HARDWARE USED: The implanted device is a [employer] MRI 2272, serial #[id number]. The atrial lead is a [employer] Tendril 2088TC, serial #[id number]. The ventricle lead is a [employer] Tendril 2088, serial #[id number]. Pacing and sensing in the atrium. The patient is in atrial fibrillation. Sensed P-waves are 2.1 millivolts and lead impedance is 461 ohms. In the ventricle, sensing is greater than 12 millivolts, pacing threshold less than 0.25 volts at 0.4 milliseconds with lead impedance of 660 ohms. ANESTHESIA: Local and intravenous sedation. DESCRIPTION OF PROCEDURE: The patient was brought to the operating room and received sedation as per the anesthesiologist, Dr. Hardy. The left chest was sterilely prepped and draped in the usual manner. The skin and underlying soft tissues over the left deltopectoral groove were infiltrated with 1% Xylocaine local anesthetic. An incision was made of about 3 cm in the left deltopectoral groove and this was carried down to the prepectoral fascia using blunt and Bovie dissection. The left cephalic vein was isolated. The proximal loop and distal tie of silk suture were placed. The vein was incised and two guidewires advanced under fluoroscopy into the low right atrium. Over one of the guidewires, a 6-Bel[place]ian introducer was placed. The dilator and guidewire were removed and the ventricular lead was positioned in the right ventricular apex under fluoroscopy. The screw was advanced under fluoroscopy. The above pacing and sensing thresholds were obtained. There was no diaphragmatic stimulation with pacing at 10 volts. The lead was then secured with two nonabsorbable sutures via the suture sleeve. Next, a 6-[place] introducer was placed over the remaining guidewire. The guidewire and dilator were removed and the atrial lead was positioned in the right atrial appendage under fluoroscopy. The screw was advanced under fluoroscopy. The above sensing and impedance values were obtained. There was no diaphragmatic stimulation with pacing at 10 volts. The lead was similarly secured with two nonabsorbable sutures via suture sleeve. A subcutaneous pocket was created using blunt and Bovie dissection. The pocket was flushed with an antibiotic solution. The pacemaker and pulse generator were brought to the field. Atrial and ventricular leads were attached. The setscrews were tightened and checked. The leads and generator were placed into the subcutaneous pocket. An anchoring suture of 0 silk was used to secure the generator to the underlying fascia. The incision was then closed in 3 layers with 2-0 and 4-0 Monocryl absorbable suture and a sterile dressing was applied. The patient tolerated the procedure well and there were no intraprocedural complications. Beatriz Brice M.D. DR: Ronnell JOB#: [id number] CC:
[2020-07-14] MEDS: ceFAZolin sod 1 GM in D5W 55 ML IVPB SCH (18:06)
--- NOTE | 2020-07-14 19:01 | NUR ---
NURSE HAND-OFF REPORT: Important Events on Shift:NA Patient Status: Stable Diet: Low sodium Pending Orders: NA Pending Results/Labs:N/A Pending notification:N/A Latest Vital Signs: Temperature 97.1 , Pulse 101 , B/P 135 /82 , Respiratory Rate 18 , O2 SAT 98 , Nasal Cannula, O2 Flow Rate 3 . Vital Sign Comment: Stable EKG Rhythm: Atrial Flutter Rhythm change?: N MD Notified?: Darion Larkin MD Response: Message left await call Latest Romo Fall Score: 30 Fall Risk: Medium Risk Safety Measures: Call light Within Reach, Bed Alarm Zone 1, Side Rails Side Rails x2, Bed position Low and Locked. Fall Precautions: Yellow Socks Yellow Gown Patient Fall Education Report given to Hollie/MAURICIO.
--- NOTE | 2020-07-14 19:18 | NUR ---
NURSE NOTES: Patient received from Little RN. Patient A&Ox4. No s/s of distress and no c/o pain at this moment. Ice pack on operative site, advised to immobilize affected site and not lifting it high, dressing site dry and intact. IV site on Right FA 22G patent and intact running NS @ 60mls/hr, Left wrist 22G patent and intact Saline locked. Bed in lowest position and locked. Call light and bedside table within reach.
--- NOTE | 2020-07-14 22:52 | NUR ---
HAND-OFF: Report given to [].
--- NOTE | 2020-07-14 22:53 | NUR ---
NURSE NOTES: Left a message for Dr. Larkin regarding patient's A. Flutter. No call backs yet.
[2020-07-15] VITALS: BP 101/74
[2020-07-15] MEDS: ceFAZolin sod 1 GM in D5W 55 ML IVPB SCH (02:11)
[2020-07-15 04:00] VITALS: BP 107/57
--- NOTE | 2020-07-15 07:23 | NUR ---
NURSE HAND-OFF REPORT: Important Events on Shift:[Aflutter c v pacing, Dr Sotomayor and Dr. Larkin aware. May be discharged today. Pt ordered for patient] Patient Status: [A&Ox4. Stable. FC] Diet: [low NA diet] Pending Orders: [] Pending Results/Labs:[] Pending MD notification:[] Latest Vital Signs: Temperature 98.1 , Pulse 93 , B/P 107 /57 , Respiratory Rate 18 , O2 SAT 99 , Nasal Cannula, O2 Flow Rate 1.0 . Vital Sign Comment: [] EKG Rhythm: Atrial flutter c V pacing Rhythm change?: N MD Notified?: Y -Dr. Trae CANALES Response: Message left await call Latest Romo Fall Score: 30 Fall Risk: Medium Risk Safety Measures: Call light Within Reach, Bed Alarm Zone 1, Side Rails Side Rails x2, Bed position Low and Locked. Fall Precautions: Yellow Socks Yellow Gown Patient Fall Education Report given to [Preston RN].
--- NOTE | 2020-07-15 07:59 | NUR ---
NURSE NOTES: Patient receivied from MAURICIO Da Silva. The patient is seen in bed eating breakfast in high fowlers position, watching TV. The patient is on RA with oxygen saturation within normal limits. The patient does not complain of any pain and under no acute signs of distress. vera patient has a L wrist 22G IV that is clean, patent and intact that is receiving NS at 60cc. The patients bed is in the lowest position, locked, side rails x3, bed alarm in zone 1 and call light within reach.
[2020-07-15 08:00] VITALS: BP 146/86
--- NOTE | 2020-07-15 10:13 | Pulmonology Progress Note ---
Subjective ROS Limited/Unobtainable: No Interval Events: None new Constitutional: Reports: no symptoms HEENT: Repors: no symptoms Respiratory: Reports: productive cough - phlegm, with blood Cardiovascular: Reports: no symptoms Gastrointestinal/Abdominal: Reports: no symptoms Allergies: Coded Allergies: No Known Allergies (Unverified , 04/15/17) All Systems: reviewed and negative except above Objective Last 24 Hour Vital Signs Date Time Temp Pulse Resp B/P (MAP) Pulse Ox O2 Delivery O2 Flow Rate FiO2 07/15/20 04:00 98.1 93 18 107/57 (74) 99 07/15/20 03:33 77 07/15/20 00:00 98.1 104 19 101/74 (83) 97 07/15/20 00:00 83 07/14/20 21:00 Nasal Cannula 1.0 07/14/20 20:50 93 111/60 07/14/20 20:00 94 07/14/20 20:00 98.1 93 18 111/60 (77) 100 07/14/20 19:30 96 Nasal Cannula 2.0 28 07/14/20 16:00 101 07/14/20 16:00 97.1 101 18 135/82 (99) 98 07/14/20 15:35 97.8 07/14/20 12:55 97.8 95 22 142/81 98 Nasal Cannula 3 07/14/20 12:40 90 19 142/83 98 Nasal Cannula 3 07/14/20 12:30 98 14 135/92 97 Nasal Cannula 3 07/14/20 12:20 92 21 127/81 96 Nasal Cannula 3 07/14/20 12:10 99 15 126/89 100 Simple Mask 6 07/14/20 12:05 88 13 140/79 100 Simple Mask 6 07/14/20 12:01 86 20 99 07/14/20 12:00 99 13 139/86 100 Simple Mask 6 07/14/20 11:54 98.4 108 14 127/85 100 Simple Mask 6 Intake and Output 07/14/20 07/15/20 19:00 07:00 Intake Total 1100 ml 240 ml Output Total 150 ml Balance 950 ml 240 ml Intake Oral 600 ml 240 ml IV Total 500 ml Output Urine Total 100 ml Estimated Blood Loss 50 ml # Voids 3 1 # Bowel Movements 1 General Appearance: no acute distress HEENT: normocephalic Respiratory: chest wall non-tender, normal breath sounds Cardiovascular: normal rate Abdomen: normal bowel sounds Current Medications Medications (Trade) Dose Ordered Sig/Izabela Route PRN Reason Start Time Stop Time Status Last Admin Dose Admin Acetaminophen (Tylenol) 500 mg Q4H PRN ORAL Mild Pain (Pain Scale 1-3) 07/14/20 12:00 08/13/20 11:59 Acetaminophen/ Codeine Phosphate (Tylenol #3) 1 tab Q4H PRN ORAL Moderate Pain (Pain Scale 4-6) 07/14/20 12:00 07/17/20 10:00 07/14/20 15:05 Amlodipine Besylate (Norvasc) 10 mg DAILY ORAL 07/09/20 09:00 08/08/20 08:59 07/14/20 08:48 Atorvastatin Calcium (Lipitor) 10 mg BEDTIME ORAL 07/09/20 21:00 10/07/20 20:59 07/14/20 20:49 Azithromycin 500 mg/Dextrose 275 ml @ 275 mls/hr Q24HRS IV 07/09/20 13:00 07/15/20 13:59 07/14/20 02:20 Ceftriaxone Sodium 1 gm/ Dextrose 55 ml @ 110 mls/hr Q24H IVPB 07/09/20 13:00 07/16/20 12:59 07/14/20 13:34 Clopidogrel Bisulfate (Plavix) 75 mg DAILY ORAL 07/09/20 09:00 08/08/20 08:59 07/14/20 08:48 Guaifenesin/ Codeine Phosphate (Robitussin with codeine) 5 ml Q6H PRN ORAL For Cough 07/13/20 10:30 08/12/20 10:29 Hydrochlorothiazide (Hydrodiuril) 12.5 mg DAILY ORAL 07/09/20 09:00 08/08/20 08:59 07/14/20 08:49 Ipratropium [place] (Atrovent) 500 mcg TIDPRN PRN HHN Shortness of Breath 07/13/20 18:45 07/18/20 18:44 Levetiracetam (Keppra) 500 mg Q12HR ORAL 07/09/20 09:00 08/23/20 08:59 07/14/20 20:50 Losartan Potassium (Cozaar) 50 mg DAILY ORAL 07/09/20 09:00 08/08/20 08:59 07/14/20 08:49 Metoprolol Tartrate (Lopressor) 12.5 mg Q12HR ORAL 07/14/20 12:00 10/12/20 11:59 07/14/20 20:50 Sodium Chloride 1,000 ml @ 60 mls/hr [id number] IV 07/14/20 07:00 08/13/20 06:59 07/14/20 23:58 Assessment/Plan Assessment/Plan 1. Pneumonia. - on azithromycin and ceftriaxone - CXR 07/09/2020 Improving aeration with decreased perihilar infiltrates - COVID-19 PCR negative 2. Mild hypoxemia. - remains on RA saturating at 97% - supplemental oxygen as needed 3. Hypertension. - s/p pacer, on metoprolol 4. Seizure disorder. 5. 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 We will follow carefully. The care of this patient was discussed with my supervising physician Time spent for this encounter was approximately 31 minutes Santiago Bell Jul 15, 2020 10:13
[2020-07-15] MEDS: Losartan 50mg tab ORAL SCH (10:19)
[2020-07-15] MEDS: hydroCHLOROthiazide 12.5mg TAB ORAL SCH (10:20)
[2020-07-15] MEDS: Metoprolol Tartrate 12.5mg TAB ORAL SCH ×2 (10:20→21:11)
--- NOTE | 2020-07-15 11:31 | General Progress Note ---
Subjective ROS Limited/Unobtainable: No Constitutional: Reports: malaise, weakness HEENT: Reports: no symptoms Cardiovascular: Reports: no symptoms Respiratory: Reports: no symptoms Gastrointestinal/Abdominal: Reports: no symptoms Genitourinary: Reports: no symptoms Neurologic/Psychiatric: Reports: no symptoms Endocrine: Reports: no symptoms Hematologic/Lymphatic: Reports: no symptoms Allergies: Coded Allergies: No Known Allergies (Unverified , 04/15/17) All Systems: reviewed and negative except above Subjective no events. s/p pacer. tolerated well. no fevers or chills. mild HINOJOSA when walking to bathroom. denies dizziness. Objective Last 24 Hour Vital Signs Date Time Temp Pulse Resp B/P (MAP) Pulse Ox O2 Delivery O2 Flow Rate FiO2 07/15/20 10:21 86 146/86 07/15/20 10:20 86 146/86 07/15/20 10:19 146/86 07/15/20 04:00 98.1 93 18 107/57 (74) 99 07/15/20 03:33 77 07/15/20 00:00 98.1 104 19 101/74 (83) 97 07/15/20 00:00 83 07/14/20 21:00 Nasal Cannula 1.0 07/14/20 20:50 93 111/60 07/14/20 20:00 94 07/14/20 20:00 98.1 93 18 111/60 (77) 100 07/14/20 19:30 96 Nasal Cannula 2.0 28 07/14/20 16:00 101 07/14/20 16:00 97.1 101 18 135/82 (99) 98 07/14/20 15:35 97.8 07/14/20 12:55 97.8 95 22 142/81 98 Nasal Cannula 3 07/14/20 12:40 90 19 142/83 98 Nasal Cannula 3 07/14/20 12:30 98 14 135/92 97 Nasal Cannula 3 07/14/20 12:20 92 21 127/81 96 Nasal Cannula 3 07/14/20 12:10 99 15 126/89 100 Simple Mask 6 07/14/20 12:05 88 13 140/79 100 Simple Mask 6 07/14/20 12:01 86 20 99 07/14/20 12:00 99 13 139/86 100 Simple Mask 6 07/14/20 11:54 98.4 108 14 127/85 100 Simple Mask 6 Intake and Output 07/14/20 07/15/20 19:00 07:00 Intake Total 1100 ml 240 ml Output Total 150 ml Balance 950 ml 240 ml Intake Oral 600 ml 240 ml IV Total 500 ml Output Urine Total 100 ml Estimated Blood Loss 50 ml # Voids 3 1 # Bowel Movements 1 Height (Feet): 5 Height (Inches): 3.00 Weight (Pounds): 212 Objective General Appearance: WD/WN, alert Neck: normal alignment Cardiovascular: normal rate, regular rhythm Respiratory/Chest: chest wall non-tender, lungs clear Abdomen: normal bowel sounds, non tender, soft, no organomegaly Edema: no edema noted Arm (L), no edema noted Arm (R), no edema noted Leg (L), no edema noted Leg (R) Neurologic: obstetric assistant II-XII grossly normal, alert, oriented x 3, responsive Lymphatic: normal anterior cervical (L), normal anterior cervical (R), normal posterior cervical (L), normal posterior cervical (R) Assessment/Plan Problem List: (1) Pneumonia ICD Codes: J18.9 - Pneumonia, unspecified organism SNOMED: 222580449 (2) Syncope ICD Codes: R55 - Syncope and collapse SNOMED: 755615547, 4661824 Qualifiers: Qualified Codes: R55 - Syncope and collapse (3) Hypertension ICD Codes: I10 - Essential (primary) hypertension SNOMED: 63961651 (4) Sick sinus syndrome ICD Codes: I49.5 - Sick sinus syndrome SNOMED: 85554401 (5) Bradycardia ICD Codes: R00.1 - Bradycardia, unspecified SNOMED: 17855762 (6) Bronchitis ICD Codes: J40 - Bronchitis, not specified as acute or chronic SNOMED: 98224567 Status: stable, progressing Assessment/Plan: IV abx monitor cxr ?convert to po abx mobilize monitor orthostatic vitals cards eval noted dvt/stress ulcer prophylaxis pt/ot ?anticoag. Ye Lester MD Jul 15, 2020 11:31
[2020-07-15 12:00] VITALS: BP 124/86
[2020-07-15] MEDS: cefTRIAXone 1 GM in D5W 55 ML IVPB SCH (12:17)
[2020-07-15] MEDS: Azithromycin 500 MG in D5W 275 ML IV SCH (13:34)
--- NOTE | 2020-07-15 14:21 | NUR ---
P.T Note: P.T evaluation completed and tx initiated. Please refer to P.T evaluation for current functional status. Pt is alert, O x 4 , pleasant and cooperative. Pt denied pain but only soreness of the L shoulder and where the pacemaker insertion is. Pt also reports feeling generally weak from not getting up out of bed for few days. Pt currently requires MIN A X 1 for bed mobilities and transfer activities as pt has also limited use of LUE from pacemaker procedure. Pt able to ambulate and tolerate 25 ft with hand in hand/MIN A X 1. Overall Fair activity tolerance. Vitals were stable all through out P.T eval/treament session. Pt will benefit from skilled P.T service to improve her strength , balance and endurance to increase her mobility independence and safety. Recommend either home P.T with CG assisting of SNF for short term rehab. DME: recommend FWW. Pt is cleared for OOB activities with nursing assistance.
[2020-07-15 16:00] VITALS: BP 115/82
--- NOTE | 2020-07-15 19:42 | NUR ---
NURSE HAND-OFF REPORT: Important Events on Shift:[Do not elevate Left Arm, IV fluids, Ambulation with PT] Patient Status: [Full code] Diet: [Low sodium] Pending Orders: [N/A] Pending Results/Labs:[N/A] Pending MD notification:[N/A] Latest Vital Signs: Temperature 98.1 , Pulse 97 , B/P 115 /82 , Respiratory Rate 20 , O2 SAT 98 , Nasal Cannula, O2 Flow Rate 1.0 . Vital Sign Comment: [] EKG Rhythm: A Flutter Rhythm change?: N Notified?: Y -Dr. Trae CANALES Response: Message left await call Latest Romo Fall Score: 30 Fall Risk: Medium Risk Safety Measures: Call light Within Reach, Bed Alarm Zone 1, Side Rails Side Rails x2, Bed position Low and Locked. Fall Precautions: Yellow Socks Yellow Gown Patient Fall Education Report given to [MAURICIO Cortes].
[2020-07-15 20:00] VITALS: BP 129/81
--- NOTE | 2020-07-15 22:38 | NUR ---
NURSE NOTES: Received pt and report from MAURICIO Johnston. Observed pt sitting on bedside chair and eating dinner. Pt is A/Ox4. air sampling and monitoring is in placed; pt is in A. Flutter (HR 87 bpm). Pt is s/p Lt chest pacemaker insertion. No bleeding noted on insertion site, normal healing. IV site intact, asymptomatic, and patent; running NS @ 60cc/hr. Bed is in the lowest position and locked. Call light and bedside table is within reach. No signs/symptoms of acute distress noted. Will continue plan of care.
[2020-07-16] VITALS: BP 132/77
--- NOTE | 2020-07-16 02:10 | NUR ---
NURSE NOTES: Observed pt asleep in bed. No signs/symptoms of acute distress noted. Will continue plan of care.
[2020-07-16 04:00] VITALS: BP 135/63
--- NOTE | 2020-07-16 07:12 | NUR ---
NURSE HAND-OFF REPORT: Important Events on Shift: No significant changes during security shift supervisor. Dr. Lester saw pt at bedside. No new orders at this time. Patient Status: Stable Diet: Low Sodium Pending Orders: N Pending Results/Labs: N Pending MD notification: N Latest Vital Signs: Temperature 98.1 , Pulse 66 , B/P 135 /63 , Respiratory Rate 19 , O2 SAT 97 , Nasal Cannula, O2 Flow Rate 1.0 . Vital Sign Comment: [] EKG Rhythm: A. Flutter/V-pacing Rhythm change?: N Latest Romo Fall Score: 30 Fall Risk: Medium Risk Safety Measures: Call light Within Reach, Bed Alarm Zone 1, Side Rails Side Rails x2, Bed position Low and Locked. Fall Precautions: Yellow Socks Yellow Gown Patient Fall Education Report given to MAURICIO Johnston.
--- NOTE | 2020-07-16 07:35 | NUR ---
NURSE NOTES: Patient received from MAURICIO Cortes. Patient seen in bed in high fowlers position eating breakfast with no acute signs of distress. the patient does not complaint of any pain and is receiving NS at 60cc through patient clean patent and intact R hand 22G IV site. The patient is on room air with oxygen saturation within normal limits. The patients bed is in lowest position, locked side rails x2 and call light within reach.
--- NOTE | 2020-07-16 07:53 | NUR ---
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 CURRENT DIET:LOW NA PO DIET RECOMMENDATIONS: Maintain LOW NA diet ADDITIONAL RECOMMENDATIONS: * Calibrated bedscale wt * Consider DC IVF if appropriate: good PO intake, h/o CHF * Monitor lytes, replete as needed
[2020-07-16 08:00] VITALS: BP 115/67
--- NOTE | 2020-07-16 08:37 | NUR ---
CASE MANAGEMENT:REVIEW 07/16/20 SI: PNA. AC/CHR CHF SSS ~ S/P PACEMAKER 97.9 65 20 128/72 98% ON 2L/NC BNMP+933 IS: IV ROCEPHIN Q24 IVF@60/HR LOPRESSOR PO Q12 HCTZ PO QD COZAAR PO QD KEPPRA PO Q12 PLAVIX PO QD NORVASC PO QD DUONEB HHN Q6HRS RTC : TELEMETRY STATUS DCP: FROM HOME PLAN: PT EVAL DISCHARGE ORDER PENDING
[2020-07-16] MEDS: hydroCHLOROthiazide 12.5mg TAB ORAL SCH (08:38)
[2020-07-16] MEDS: Metoprolol Tartrate 12.5mg TAB ORAL SCH (08:39)
[2020-07-16] MEDS: Losartan 50mg tab ORAL SCH (08:40)
--- NOTE | 2020-07-16 08:46 | NUR ---
DISCHARGE PLAN PLAN IS FOR PATIENT TO DISCHARGE HOME TODAY DR GRANT CALLED PRESCRIPTIONS IN TO "[facility]" PROVIDE FWW FOR HOME USE Addendum: 07/16/20 at 0911 by AGATHA MCDONALD LVN LVN FUR [employer]Y CLEANER HAS FAXED CLINICALS TO [facility] T; [phone] F: [phone]
--- NOTE | 2020-07-16 09:38 | Pulmonology Progress Note ---
Subjective ROS Limited/Unobtainable: No Interval Events: None new Constitutional: Reports: no symptoms HEENT: Repors: no symptoms Respiratory: Reports: productive cough - improving Cardiovascular: Reports: no symptoms Gastrointestinal/Abdominal: Reports: no symptoms Allergies: Coded Allergies: No Known Allergies (Unverified , 04/15/17) All Systems: reviewed and negative except above Objective Last 24 Hour Vital Signs Date Time Temp Pulse Resp B/P (MAP) Pulse Ox O2 Delivery O2 Flow Rate FiO2 07/16/20 08:40 115/67 07/16/20 08:39 84 115/67 07/16/20 08:39 84 115/67 07/16/20 04:00 83 07/16/20 04:00 98.1 66 19 135/63 (87) 97 07/16/20 00:00 97.1 72 17 132/77 (95) 98 07/16/20 00:00 86 07/15/20 21:11 76 129/56 07/15/20 21:00 Room Air 07/15/20 20:11 97 Room Air 21 07/15/20 20:00 97.0 73 19 129/81 (97) 97 07/15/20 20:00 87 07/15/20 16:00 98.1 97 20 115/82 (93) 98 07/15/20 16:00 97 07/15/20 12:00 83 07/15/20 12:00 97.9 82 20 124/86 (99) 96 07/15/20 10:21 86 146/86 07/15/20 10:20 86 146/86 07/15/20 10:19 146/86 Intake and Output 07/15/20 07/16/20 19:00 07:00 Intake Total 1520 ml 980 ml Balance 1520 ml 980 ml Intake Oral 800 ml 320 ml IV Total 720 ml 660 ml # Voids 1 3 General Appearance: no acute distress HEENT: normocephalic Respiratory: chest wall non-tender, normal breath sounds Cardiovascular: normal rate Abdomen: normal bowel sounds Current Medications Medications (Trade) Dose Ordered Sig/Izabela Route PRN Reason Start Time Stop Time Status Last Admin Dose Admin Acetaminophen (Tylenol) 500 mg Q4H PRN ORAL Mild Pain (Pain Scale 1-3) 07/14/20 12:00 08/13/20 11:59 Acetaminophen/ Codeine Phosphate (Tylenol #3) 1 tab Q4H PRN ORAL Moderate Pain (Pain Scale 4-6) 07/14/20 12:00 07/17/20 10:00 07/14/20 15:05 Amlodipine Besylate (Norvasc) 10 mg DAILY ORAL 07/09/20 09:00 08/08/20 08:59 07/16/20 08:39 Atorvastatin Calcium (Lipitor) 10 mg BEDTIME ORAL 07/09/20 21:00 10/07/20 20:59 07/15/20 21:10 Ceftriaxone Sodium 1 gm/ Dextrose 55 ml @ 110 mls/hr Q24H IVPB 07/09/20 13:00 07/16/20 12:59 07/15/20 12:17 Clopidogrel Bisulfate (Plavix) 75 mg DAILY ORAL 07/09/20 09:00 08/08/20 08:59 07/16/20 08:38 Guaifenesin/ Codeine Phosphate (Robitussin with codeine) 5 ml Q6H PRN ORAL For Cough 07/13/20 10:30 08/12/20 10:29 Hydrochlorothiazide (Hydrodiuril) 12.5 mg DAILY ORAL 07/09/20 09:00 08/08/20 08:59 07/16/20 08:38 Ipratropium [place] (Atrovent) 500 mcg TIDPRN PRN HHN Shortness of Breath 07/13/20 18:45 07/18/20 18:44 Levetiracetam (Keppra) 500 mg Q12HR ORAL 07/09/20 09:00 08/23/20 08:59 07/16/20 08:38 Losartan Potassium (Cozaar) 50 mg DAILY ORAL 07/09/20 09:00 08/08/20 08:59 07/16/20 08:40 Metoprolol Tartrate (Lopressor) 12.5 mg Q12HR ORAL 07/14/20 12:00 10/12/20 11:59 07/16/20 08:39 Sodium Chloride 1,000 ml @ 60 mls/hr [id number] IV 07/14/20 07:00 08/13/20 06:59 07/16/20 03:14 Assessment/Plan Assessment/Plan 1. Pneumonia. - now off azithromycin - on ceftriaxone - CXR 07/09/2020 Improving aeration with decreased perihilar infiltrates - COVID-19 PCR negative 2. Mild hypoxemia. - remains on RA saturating at 97% - supplemental oxygen as needed 3. Hypertension. - s/p pacer, on metoprolol 4. Seizure disorder. 5. 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 We will follow carefully. Medically stable for discharge from pulmonary standpoint The care of this patient was discussed with my supervising physician Time spent for this encounter was approximately 31 minutes Santiago Bell Jul 16, 2020 09:38
--- NOTE | 2020-07-16 10:06 | 48 Hour Post Anesthesia Eval ---
Post Anesthesia Evaluation Procedure: Permanent pacemaker placement Date of Evaluation: Jul 16, 2020 Time of Evaluation: 10:05 Blood Pressure Systolic: 136 0: 72 Pulse Rate: 78 Respiratory Rate: 22 Temperature (Fahrenheit): 97.6 O2 Sat by Pulse Oximetry: 98 Airway: patent Nausea: No Vomiting: No Pain Intensity: 1 Hydration Status: adequate Cardiopulmonary Status: stable Mental Status/LOC: patient returned to baseline Follow-up Care/Observations: n/a Post-Anesthesia Complications: none Follow-up care needed: N/A Alo Hardy MD Jul 16, 2020 10:06
[2020-07-16 12:00] VITALS: BP 146/84
--- NOTE | 2020-07-16 14:25 | NUR ---
NURSE NOTES: Patient discharged in private vehicle with cousin, Rachele Oates. Patient was transported to vehicle via wheelchair and assisted into private vehicle. The patients belonging were verified and acknowledged by RN and patient. patients IV sites were discontinued which were clean and intact. The patients ekg monitor tech was discontinued. The patient was in stable condition and VS stable with no complaints of pain and no acute signs of distress. the patient was given discharge instruction and is aware of home health PT/OT and visiting nurse. The patients questions and request were all met at this time. The patient was off the floor at 1300
--- NOTE | 2020-07-18 12:38 | Discharge Summary ---
Discharge Summary Discharge Summary _ Date of admission: 07/08/2020 Date of discharge: 07/16/[address] Larkin History of Present Illness and Brief Hospital Course Ms. Fontaine is a 75-year-old female with past medical history of seizure, hypertension, CVA with visual disturbance and dysarthria, B12 deficiency, and dyslipidemia, who presented to the ED for evaluation of shortness of breath x1 day. She also reported dry cough, wheezing, and nonbloody loose stools since the night prior. Initial EKG showed sinus bradycardia without significant ST elevation or depressions. Her initial chest x-ray was notable for right hilar infiltrate. She tested negative for COVID-19 via rapid gene assay and PCR. She received IV fluids, azithromycin, Rocephin, and Decadron in the ER and was admitted to the hospital for further management. Patient was noted to have advanced conduction system disease with bradycardia arrhythmia and heart block. Patient required permanent pacemaker for symptomatic sinus node disease. Patient received permanent pacemaker implant on 07/14/2020. The patient tolerated the procedure well and there were no intraprocedural complications. She was also noted to have acute on chronic diastolic CHF which responded to diuretics. Patient was medically stable for discharge and was discharged home on 07/16/2020. Consultants: Cardiology Dr. Brice Pulmonology Dr. 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 Santiago Bell Jul 18, 2020 12:38
== END 2020-07-16 14:01 | disposition home or self-care (01) | DRG 242 ==
LOC: EMR 14:00 → 2E 14:21 → EDBEDREQ 16:05
DX: I49.5 Sick sinus syndrome (principal); J18.9 Pneumonia, unspecified organism; I50.33 Acute on chronic diastolic (congestive) heart failure; I11.0 Hypertensive heart disease with heart failure; G40.909 Epilepsy, unspecified, not intractable, without status epilepticus; I48.0 Paroxysmal atrial fibrillation; I44.0 Atrioventricular block, first degree; Z86.73 Personal history of transient ischemic attack (TIA), and cerebral infarction without residual deficits; D51.0 Vitamin B12 deficiency anemia due to intrinsic factor deficiency; E87.6 Hypokalemia; E83.42 Hypomagnesemia; J40 Bronchitis, not specified as acute or chronic; R09.02 Hypoxemia; E78.5 Hyperlipidemia, unspecified; Z20.822 Contact with and (suspected) exposure to COVID-19; Z79.02 Long term (current) use of antithrombotics/antiplatelets
CPT/HCPCS: 36415; 71045; 76000; 80053; 81003; 82550; 82728; 83605; 83615; 83690; 83735; 83880; 84439; 84443; 84484; 85007; 85025; 85610; 85730; 86140; 87040; 93005; 94003; 94150; 94640; 96365; 96367; 96375; 99285; J7030; J7620; J8499; U0002

== ENCOUNTER 2020-08-16 11:20 | Emergency (ER) | payer MEDICARE, OTHER ==
[~2020-08-16] VITALS: Ht 162.6 cm; Wt 90.7 kg
[~2020-08-16 11:20] MED LIST changes: +ELIQUIS5 MG ORAL; +METOPROLOL SUCC50 MG ORAL; +VOLTAREN ARTHRI20 GM TP
--- NOTE | 2020-08-16 11:56 | Emergency Room Report ---
History of Present Illness General Chief Complaint: Dyspnea/Respdistress Source: Patient Present Illness HPI Disclaimer: Please note that this report is being documented using DRAGON technology. This can lead to erroneous entry secondary to incorrect interpretation by the dictating instrument. HPI: 75-year-old female presents for evaluation of shortness of breath. Symptoms began last night while laying down to go to bed. She just feels she cannot take a deep breath. Denies cough, fever, chills. Reports some fatigue but denies myalgias, vomiting, diarrhea or other symptoms. Vaccinated COVID-19 1 week ago. Had a pacemaker placed for sick sinus syndrome 5 days ago on 08/11. Denies pain or swelling over the site. Denies chest pain or pressure. Has been compliant with her medications. 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 COVID-19 Screening: Negative COVID-19 COVID-19 Testing Source: [facility] Patient History Last Menstrual Period: na Nursing Documentation-PM Past Medical History: No History, Except For Hx Cardiac Problems: Yes Hx Hypertension: Yes Hx Pacemaker: Yes Hx Cancer: No Hx Gastrointestinal Problems: No Hx Neurological Problems: Yes Hx Cerebrovascular Accident: Yes - 2010, no residual Hx Seizures: Yes Hx Syncope: Yes Review of Systems All Other Systems: negative except mentioned in HPI Physical Exam Vital Signs Date Time Temp Pulse Resp B/P (MAP) Pulse Ox O2 Delivery O2 Flow Rate FiO2 08/16/20 11:26 99.3 70 22 145/80 (101) 91 Room Air General: Awake and alert, no acute distress HEENT: NC/AT. EOMI. Cardiovascular: Palpable pacemaker left upper chest. Regular rate and rhythm. Resp: Normal work of breathing. No cough, wheezing or crackles appreciated Abdomen: Abdomen is soft, nondistended. Nontender Skin: Intact. No abrasions, laceration or rash over the exposed skin MSK: Normal tone and bulk. Moving all extremities. No obvious deformity. Lower extremity edema Neuro: Awake and alert. Mentating appropriately. Medical Decision Making Diagnostic Impression: Primary Impression: CHF (congestive heart failure) ER Course 75-year-old female history of CHF, paroxysmal atrial fibrillation, sick sinus syndrome status post pacemaker recently vaccinated for COVID-19 presents for evaluation of shortness of breath beginning last night. EKG shows sinus rhythm without obvious ischemic changes. Mild vascular congestion on x-ray without obvious effusion. Labs show elevated BN peptide consistent with CHF exacerbation but otherwise normal labs including a negative troponin. Patient is feeling well with stable vital signs. He was given Lasix with good urine output. Discussed the patient with her chamber magistrate Dr. Larkin and PMD Dr. Alphonse donahue who made an appointment for her to come to clinic tomorrow. Do not believe she requires admission at this time and stable for outpatient follow-up. Return precautions discussed. She understands agrees with this treatment plan. Laboratory Tests Test 08/16/20 11:55 White Blood Count 8.3 K/UL (4.8-10.8) Red Blood Count 4.06 M/UL (4.20-5.40) L Hemoglobin 12.7 G/DL (12.0-16.0) Hematocrit 39.6 % (37.0-47.0) Mean Corpuscular Volume 97 FL (80-99) Mean Corpuscular Hemoglobin 31.3 PG (27.0-31.0) H Mean Corpuscular Hemoglobin Concent 32.2 G/DL (32.0-36.0) Red Cell Distribution Width 15.9 % (11.6-14.8) H Platelet Count 158 K/UL (150-450) Mean Platelet Volume 9.6 FL (6.5-10.1) Neutrophils (%) (Auto) 71.1 % (45.0-75.0) Lymphocytes (%) (Auto) 14.3 % (20.0-45.0) L Monocytes (%) (Auto) 12.7 % (1.0-10.0) H Eosinophils (%) (Auto) 0.6 % (0.0-3.0) Basophils (%) (Auto) 1.4 % (0.0-2.0) Sodium Level 142 MMOL/L (136-145) Potassium Level 3.9 MMOL/L (3.5-5.1) Chloride Level 107 MMOL/L (98-107) Carbon Dioxide Level 24 MMOL/L (21-32) Anion Gap 11 mmol/L (5-15) Blood Urea Nitrogen 12 mg/dL (7-18) Creatinine 1.1 MG/DL (0.55-1.30) Estimated Glomerular Filtration Rate 59.0 mL/min (>60) Glucose Level 105 MG/DL (74-106) Calcium Level 8.6 MG/DL (8.5-10.1) Total Bilirubin 1.4 MG/DL (0.2-1.0) H Direct Bilirubin 0.2 MG/DL (0.0-0.3) Aspartate Amino Transferase (AST) 24 U/L (15-37) Alanine Aminotransferase (ALT) 14 U/L (12-78) Alkaline Phosphatase 112 U/L (46-116) Troponin I 0.003 ng/mL (0.000-0.056) Pro-B-Type Natriuretic Peptide 43300 pg/mL (0-125) H Total Protein 7.2 G/DL (6.4-8.2) Albumin 2.8 G/DL (3.4-5.0) L Globulin 4.4 g/dL Albumin/Globulin Ratio 0.6 (1.0-2.7) L EKG Diagnostic Results Troponin ordered: Yes When was troponin ordered?: Aug 16, 2020 EKG Time: 11:40 Rate: normal Rhythm: NSR ST Segments: no acute changes Other Impression Sinus rhythm, normal axis, normal intervals, no ST segment changes Rhythm Strip Diag. Results Rhythm Strip Time: 11:40 EP Interpretation: yes Rate: 70s Rhythm: NSR, no PVC's, no ectopy Chest X-Ray Diagnostic Results Chest X-Ray Diagnostic Results : Chest X-Ray Ordered: Yes # of Views/Limited/Complete: 1 View Indication: Shortness of Breath EP Interpretation: Yes PA Xray: Interpretation reviewed Interpretation: no consolidation, no effusion, no pneumothorax, other - Vascular congestion Impression: Other - Mild vascular congestion Electronically Signed by: Electronically signed by Dr. Jagdeep Falcon MD Last Vital Signs Date Time Temp Pulse Resp B/P (MAP) Pulse Ox O2 Delivery O2 Flow Rate FiO2 08/16/20 11:26 99.3 70 22 145/80 (101) 91 Room Air Disposition: HOME, SELF-CARE Condition: Stable Jagdeep Falcon MD Aug 16, 2020 11:56
--- NOTE | 2020-08-16 12:03 | NUR ---
Patient reporting to ER with SOB which started since last night. She reported that she received the COVID vaccine last week and had pacemaker placement last week to left upper chest. Small incision noted to site which is closed. No drainage noted. No pain voiced at present. She reported a medical history of seizure, HTN, high cholesterol and bradycardia. Ambulatory and independent with ADLs. 22 G placed to Left hand and tolerated well. EKG- normal
[2020-08-16 12:21] VITALS: BP 124/64
[2020-08-16 12:43] LABS: BASOPHILS % (AUTO) 1.4 % (0.0-2.0); EOSINOPHILS % (AUTO) 0.6 % (0.0-3.0); HEMATOCRIT 39.6 % (37.0-47.0); HEMOGLOBIN 12.7 G/DL (12.0-16.0); LYMPHOCYTES % (AUTO) 14.3 % (20.0-45.0); MEAN CORPUSCULAR VOLUME 97 FL (80-99); MONOCYTES % (AUTO) 12.7 % (1.0-10.0); NEUTROPHILS % (AUTO) 71.1 % (45.0-75.0); PLATELET COUNT 158 K/UL (150-450); RED BLOOD COUNT 4.06 M/UL (4.20-5.40); RED CELL DISTRIBUTION WIDTH 15.9 % (11.6-14.8); WHITE BLOOD COUNT 8.3 K/UL (4.8-10.8)
[2020-08-16 12:46] LABS: CALCIUM 8.6 MG/DL (8.5-10.1); CREATININE 1.1 MG/DL (0.55-1.30); POTASSIUM 3.9 MMOL/L (3.5-5.1)
[2020-08-16 12:57] LABS: ALBUMIN 2.8 G/DL (3.4-5.0); ALBUMIN/GLOBULIN RATIO 0.6 (1.0-2.7); BILIRUBIN,TOTAL 1.4 MG/DL (0.2-1.0)
[2020-08-16 13:00] LABS: BILIRUBIN,DIRECT 0.2 MG/DL (0.0-0.3)
[2020-08-16 13:55] VITALS: BP 126/72
--- NOTE | 2020-08-16 16:56 | Diagnostic Imaging Report ---
Indication: Shortness of breath Technique: One view of the chest Comparison: 07/14/2020 Findings: The heart is mildly enlarged. There is bilateral interstitial congestion which appears somewhat more severe than on the previous exam. The pleural spaces are grossly clear. Impression: Mild cardiomegaly Mild bilateral interstitial congestion
--- NOTE | 2020-08-17 17:44 | Cardiology Report ---
APPROVED REPORT EKG Measurement Heart [id number] <Conclusion> Normal sinus rhythm Marked ST abnormality, possible lateral subendocardial injury Abnormal ECG
== END 2020-08-16 13:55 | disposition home or self-care (01) ==
LOC: EMR 13:19
DX: I11.0 Hypertensive heart disease with heart failure (principal); I50.9 Heart failure, unspecified; Z95.0 Presence of cardiac pacemaker; Z86.73 Personal history of transient ischemic attack (TIA), and cerebral infarction without residual deficits
CPT/HCPCS: 36415; 71045; 80053; 82248; 83880; 84484; 85025; 93005; 96374; 99284; J1940